=== PATIENT | male | born 1965 | race Caucasian/White ===

== ENCOUNTER 2016-09-07 11:40 | Outpatient (CLI) | payer OTHER ==
[~2016-09-07 11:40] MED LIST: ALBUTEROL HFA60 DOSE IN; ALPHA LIPOIC ACID PO; AMITRIPTYLINE H10 MG PO; AMLODIPINE BESYL5 MG PO; ASPIRIN EC325 MG PO; ATORVASTATIN CA20 MG PO; AUGMENTIN875 MG PO; BACTROBAN21 TOP; FLONASE AL50 MCG/ACT; GABAPENTIN600 MG PO; HUMALOG100 MG/ML SC; ISOSORBIDE MONO60 MG PO; KEFLEX500 M1 PO; LANTUS SOL100 UNITS/ SC; LASIX40 MG PO; LISINOPRIL10 MG PO; LISINOPRIL2.5 MG PO; METOPROLOL SUCC50 MG PO; NYSTATIN100000 MG PO; OMEGA 31000 MG PO; OXYCODONE/ACETA1 TA1 PO; PREDNISONE5 MG PO; PRINIVIL5 MG PO; RANITIDINE HCL150 MG PO; TOPROL XL25 MG PO; TOPROL XL50 MG PO; VITAMIN B 12100 MCG PO; VITAMIN B 12250 MCG PO; VITAMIN B 50 PO; ZANTAC 150 MAX150 MG PO; ZYRTEC ALLERGY10 M1
--- NOTE | 2016-09-07 12:27 | DIAGNOSTIC IMAGING REPORT ---
PROCEDURE: CT HEAD WITHOUT CONTRAST INDICATION: ACUTE NON INTRACTABLE HEADACHE; DIZZINESS TECHNIQUE: Axial CT images were acquired through the head. Coronal and sagittal reformations were created. COMPARISON: None. FINDINGS: Study was limited by patient motion. No intracranial hemorrhage or extraaxial fluid collections. Ventricles are normal in size, shape and position. There is no mass, mass effect or midline shift. The montiel-white matter differentiation is normal. There is no edema. The calvarium is intact. There is a fluid in the maxillary ethmoid and frontal sinuses. IMPRESSION: 1. No CT evidence of acute intracranial process. 2. Maxillary ethmoid and frontal sinusitis All CT scans at this facility use dose modulation, iterative reconstruction, and/or weight-based dosing when appropriate to reduce radiation dose to as low as reasonably achievable.
--- NOTE | 2016-09-07 12:29 | DIAGNOSTIC IMAGING REPORT ---
PROCEDURE: CT SINUS/FACIAL BONES W/O CONT CLINICAL INDICATION: ACUTE NONINTRACTABLE HEADACHE TECHNIQUE: Noncontrast axial CT images through the sinuses. Coronal and sagittal reformations were created. COMPARISON: None. FINDINGS: There is fluid in the frontal ethmoid and maxillary sinuses bilaterally. Sphenoid sinuses clear. Orbits are normal in IMPRESSION: 1. Maxillary ethmoid and frontal sinusitis. All CT scans at this facility use dose modulation, iterative reconstruction, and/or weight-based dosing when appropriate to reduce radiation dose to as low as reasonably achievable.
== END 2016-09-07 23:00 ==
LOC: CT SRH 11:40
DX: R51 Headache (principal); J32.0 Chronic maxillary sinusitis; J32.2 Chronic ethmoidal sinusitis

== ENCOUNTER 2016-11-01 10:26 | Observation (INO) | payer OTHER ==
[~2016-11-01] VITALS: Ht 180.3 cm; Wt 164.9 kg
--- NOTE | 2016-11-01 10:57 | DIAGNOSTIC IMAGING REPORT ---
PROCEDURE: XR CHEST 1 VIEW INDICATION: CHEST PAIN TECHNIQUE: Portable AP view 10:46 a.m. COMPARISON: Chest 07/06/2016 and 08/08/2015 FINDINGS: Status post CABG. Heart size, mediastinum and point vessels are normal. Poor inspiration but lungs are clear. Stable lower thoracic spine chronic compression fracture. IMPRESSION: 1. No acute changes 2. CABG
--- NOTE | 2016-11-01 11:47 | ED NURSING NOTES ---
Clinical Report - Nurses [place] [address] [place] [address] 11/01/2016 10:27 Patient: SUDHA BRIGGS TRIAGE Triage time 10:29. Acuity: LEVEL 2. Chief Complaint: CHEST PAIN. Alert. --10:33 Stuart Cosme R.N. 10:31 11/01/16. Pain level now 3/10. --10:33 Stuart Cosme R.N. SEPSIS SCREEN: Sepsis Screen. Negative (no infection suspected/documented). Heart rate greater than 90. Temperature not greater than 38.3 degrees C (101 degrees F). Respiratory rate not greater than 20. --10:35 Stuart Cosme R.N. 10:34 11/01/16. BP: 155/79. HR: 105. RR: 22. O2 saturation: 95% on room air. Temp: 98.1 F (oral). --10:35 Stuart Cosme R.N. Weight: 165.5 kg stated. Height/Length: 71 inches Per Patient. BMI: 50.9. --10:30 Stuart Cosme R.N. Medications Amitriptyline HCl Oral (Tablet 10 mg), at bedtime. --10:37 Stuart Cosme R.N. Tramadol HCL Oral, 3x a day. --10:37 Stuart Cosme R.N. Albuterol Sulfate HFA Inhalation (Aerosol Solution 108 (90 Base) mcg/act) 2 puffs, 4x a day as needed. --10:40 Stuart Cosme R.N. AmLODIPine Besylate Oral (Tablet 10 mg), daily. --10:41 Stuart Cosme R.N. Aspirin Low Dose Oral (Tablet Chewable 81 mg) 1 tablet, daily. --10:42 Stuart Cosme R.N. Atorvastatin Calcium Oral (Tablet 80 mg) 1 tablet, daily. --10:42 Stuart Cosme R.N. Augmentin Oral (Tablet 875-125 mg) 1 tablet, 2x a day. --10:43 Stuart Cosme R.N. Benzonatate Oral (Capsule 200 mg) 1 capsule, 3x a day as needed. --10:45 Stuart Cosme R.N. Carvedilol Phosphate ER Oral. --10:46 Stuart Cosme R.N. Cefdinir Oral (Capsule 300 mg) 1 capsule, 2x a day. --10:46 Stuart Cosme R.N. DULoxetine HCl Oral (Capsule Delayed Release Particles 30 mg) 2 capsules. --10:47 Stuart Cosme R.N. Flonase Nasal (Suspension 50 mcg/act) 2 sprays, daily. --10:47 Stuart Cosme R.N. Gabapentin Oral 1200 mg, 3x a day. --10:48 Stuart Cosme R.N. HumaLOG Subcutaneous (Solution 100 unit/mL) 20-30 units , before meals. --10:49 Stuart Cosme R.N. Lantus Subcutaneous (Solution 100 unit/mL) 60 units, 2x a day. --10:50 Stuart Cosme R.N. Lisinopril Oral 10 mg, 2x a day. --10:51 Stuart Cosme R.N. Nitroglycerin Sublingual (Tablet Sublingual 0.4 mg), as needed. --10:53 Stuart Cosme R.N. Newberg 3 Oral. --10:55 Stuart Csome R.N. ProAir HFA Inhalation (Aerosol Solution 108 (90 Base) mcg/act), as needed. --10:55 Stuart Cosme R.N. Uloric Oral (Tablet 80 mg), daily. --10:55 Stuart Cosme R.N. Vitamin B-12 Oral. --10:56 Stuart Cosme R.N. Ranitidine HCl Oral 150 mg, 2x a day. --10:56 Stuart Cosme R.N. ZyrTEC Allergy Oral (Tablet 10 mg) 1 tablet, daily. --11:00 Stuart Cosme R.N. The following entry was struck and corrected by Stuart Cosme R.N., 10:40 (11/01/16) Reason for correction - other(correction). <<STRICKEN ENTRY-- Amitriptyline HCl Oral. --10:37 Stuart Cosme R.N. --END STRIKE>> The following entry was struck by Stuart Cosme R.N., 10:40 (11/01/16) Reason - other. <<STRICKEN ENTRY-- Albuterol Sulfate Inhalation. --10:37 Stuart Cosme R.N. --END STRIKE>>. Allergies Metoprolol Succinate. --10:36 Stuart Cosme R.N. Claritin. --10:37 Stuart Cosme R.N. History Arrived by private vehicle. Historian: patient. Accompanied by family. Primary physician (nir). ( chest pain starting at 0800. States he was awoken from sleep by it. States he had a 5 way CABG in 2002. Denies pain radiating or changing. Also complaining of dizziness.). This started today. Treatment [employer]: (excedrin). SOCIAL HX: Never smoker. No alcohol use or drug use. ABUSE ASSESSMENT: No report of abuse. FALL RISK ASSESSMENT: Fall risk assessment completed. No fall risk identified. NUTRITIONAL RISK ASSESSMENT: The nutritional risk assessment revealed no deficiencies. FUNCTIONAL ASSESSMENT: Functional assessment: no impairments noted. LEARNING NEEDS ASSESSMENT: The learning needs assessment revealed no barriers. SKIN INTEGRITY ASSESSMENT: Skin integrity risk assessment completed. No skin integrity risk identified. --10:33 Stuart Cosme R.N. ( states he is being treated for pink eye and a sinus infection). --10:34 Stuart Cosme R.N. PROBLEMS: Dyspnea. Chest Pain. Renal Failure. Anxiety Reaction. Hyperlipidemia. Gastroesophageal Reflux. Rib Fracture. Knee Injury. Pedal Edema. Coronary Artery Disease. Hypercholesterolemia. Dehydration. Hyperglycemia. Vomiting. Immunizations. Hypertension. Heart Disease. Diabetes Mellitus. --10:36 Stuart Cosme R.N. ADDITIONAL SURGERIES: Coronary Artery Bypass Graft. --10:36 Stuart Cosme R.N. Interventions ID band on patient. To treatment room. --10:33 Stuart Cosme R.N. PHYSICAL ASSESSMENT To room via wheelchair. GENERAL / NEURO / PSYCH: Alert. Oriented X 4. Appears anxious. CVS: Capillary refill less than 2 seconds. SKIN: Skin is warm and dry. Skin is non-tender. --11:01 Stuart Cosme R.N. NURSING PROGRESS NOTES 10:32. The plan of care for this patient has been created. lunchroom monitor, pulse oximeter and NIBP monitor placed on patient. Patient gowned. Head of bed elevated. ( asa Prior to arrival, MD aware). Call light placed in reach. Bed placed in lowest position. Brakes of bed on. Patient ready for evaluation- chart flagged and ED physician notified. --11:09 Stuart Cosme R.N. 11:00. Overall patient status is the same. --11:08 Stuart Cosme R.N. 11:04 11/01/2016 NITROGLYCERIN PASTE Topical Paste 1.5 inch. Applied to the left chest. Allergies verified and confirmed 5 rights. --11:10 Stuart Cosme R.N. 11:04 11/01/2016 Nitroglycerin SL Tablets 0.4 mg given. Allergies verified and confirmed 5 rights. --11:11 Stuart Cosme R.N. 11:11 11/01/16. BP: 145/79. HR: 101. RR: 18. O2 saturation: 94%. --11:11 Stuart Cosme R.N. Reassessment after medication administered. He reports no complaints, he is calm and he has had no adverse reaction. ( MD and RN notified). CVS: The patient reports chest pain is gone now. --11:13 Stuart Cosme R.N. 11:16 11/01/16. BP: 129/72. HR: 103. RR: 24. Pain level now 0/10. --11:16 Stuart Cosme R.N. EKG time: (1032). EKG was ordered, performed by a tech and shown to the ED physician. --11:22 Liz Malone R.N. ( 10:40 no asa given. Pt states he took 650mg of asa [employer]. Provider notified.). --11:22 Liz Malone R.N. 10:30 11/01/2016 Site #1 started via IV in the right hand with an 20g angiocath, with aseptic technique and good blood return. Blood drawn: rainbow set. Labeled in the presence of the patient and sent to the lab. Saline lock flushed. --11:26 Liz Malone R.N. 10:47 11/01/2016 Started bag #1 1000 mL IV Fluids IV NS (Saline); at 1000 mL/hr over 30 minute(s) via site #1 via IV pump. Allergies verified and confirmed 5 rights. IV patency established. IV site checked: no pain, redness, or swelling. IV flushed thoroughly pre- and post-medication administration. --11:26 Liz Malone R.N. 11:24 11/01/16. Checked patient name and birthdate: patient confirmed urine collected with return of yellow-colored clear urine; sample sent to lab for urinalysis. Specimen labeled in the presence of the patient. --11:24 Bernda Fischer R.N. 10:42. Portable chest x-ray ordered, performed and shown to the ED physician. --11:27 Liz Malone R.N. 11:35 11/01/16. BP: 116/63. HR: 102. RR: 18. O2 saturation: 95% on room air. Temp: 98.8 F (oral). --11:36 Brenda Fischer R.N. 11:57 11/01/16. The patient reports no complaints and he is calm and resting quietly. --11:57 Stuart Cosme R.N. 12:26 11/01/2016 IV Fluids IV NS Discontinued: bag #1 infused. Total amount infused: 1000 mL. IV patency established. IV site checked: no pain, redness, or swelling. IV flushed thoroughly. --12:26 Stuart Cosme R.N. Assisted patient (to sit at edge of bed). --12:38 Stuart Cosme R.N. 13:19 11/01/16. Oxygen administered by nasal cannula at 2 liters. ( Pt given ice water). --13:19 Brenda Fischer R.N. 13:40 11/01/16. BP: 101/70. HR: 92. RR: 23. O2 saturation: 94% on room air. Pain level now 0/10. --13:41 Stuart Cosme R.N. 13:48 11/01/16. BP: 101/70. HR: 95. RR: 18. O2 saturation: 96%. Temp: 98.3 F. Pain level now 5/10. --13:51 Liz Malone R.N. DISPOSITION / DISCHARGE 13:51 11/01/2016 Site #[address] upon admission; patent, no pain and no signs of infiltration. No blood return present. Flushed with 10 mL saline; flushes easily. --13:52 Liz Malone R.N. ( 13:48 11/01/16. BP: 101/70. HR: 95. RR: 18. O2 saturation: 96%. Temp: 98.3 F. Pain level now 5/10. 13:51 Liz Malone R.N.). --13:52 Liz Malone R.N. 14:00. Departure time: 14:00. Admitted to Acute Care. Transported via wheelchair by [employer]. Report was given to a nurse via a phone call. Report included patient's care, treatment, medications, reviewed medication reconcilliation, and condition (including any recent changes or anticipated changes). All questions were answered. (to Kalee). ( provider aware of admit v/s no new orders received at this time.). Patient's personal items; items were placed in belongings bag, given to the patient and transported with the patient. --15:43 Liz Malone R.N. Locked/Released at 11/01/2016 16:25 by Liz Malone R.N.
--- NOTE | 2016-11-01 11:47 | ED CLINICAL REPORT ---
Clinical Report - Physicians/Mid Levels [facility] [address] [place] [address] 11/01/2016 10:27 Patient: SUDHA BRIGGS Time Seen: 10:36. Arrived- By private vehicle. Historian- patient. HISTORY OF PRESENT ILLNESS Chief Complaint: CHEST DISCOMFORT. At its maximum, severity described as moderate. When seen in the E.D., severity described as moderate. Modifying factors. Not worsened by anything. Not relieved by anything. This started today about 0800 and is still present. It was gradual in onset and has been waxing/waning. Onset during light activity. It is described as dull and it is described as located in the central chest and left chest area and left arm and radiating to the left arm. No nausea, vomiting, difficulty breathing or diaphoresis. (chest pain starting at 0800. States he was awoken from sleep by it. States he had a [address] way CABG in 2002. Denies pain radiating or changing. Also complaining of dizziness). Similar symptoms previously: Recent medical care: Not recently seen/assessed. REVIEW OF SYSTEMS No fever, chills, cough, pedal edema or calf pain. No fainting episodes, headache, sore throat, abdominal pain or black stools. No difficulty with urination, skin rash, enlarged lymph nodes, joint pain or bloody stools. All systems otherwise negative, except as recorded above. PAST HISTORY PROBLEMS: Dyspnea. Chest Pain. Renal Failure. Anxiety Reaction. Hyperlipidemia. Gastroesophageal Reflux. Rib Fracture. Knee Injury. Pedal Edema. Coronary Artery Disease. Hypercholesterolemia. Dehydration. Hyperglycemia. Vomiting. Hypertension. Heart Disease. Diabetes Mellitus. Obesity SURGERIES: Coronary Artery Bypass Graft. Medications: Tramadol HCL Oral, 3x a day. Amitriptyline HCl Oral. Albuterol Sulfate Inhalation. Allergies: Claritin. Metoprolol Succinate. SOCIAL HISTORY Never smoker. No alcohol use or drug use. ADDITIONAL NOTES The nursing notes have been reviewed. PHYSICAL EXAM Vital Signs: 11/01/2016 10:34 BP: 155/79. HR: 105. RR: 22. O2 saturation: 95%. Temp: 98.1 F. Appearance: Alert. Oriented X3. Patient in mild distress. No marfanoid habitus. Eyes: Eyes normal inspection. No scleral icterus or pale conjunctivae. ENT: Pharynx normal. No pharyngeal erythema or tonsillar exudate. The mucous membranes are not dry. Neck: Normal inspection. Neck supple. CVS: Tachycardia. Normal heart rate and rhythm. Heart sounds normal. Pulses normal. No decreased pulses. Respiratory: No respiratory distress. Breath sounds normal. Chest nontender. No splinting, decreased air movement, rales, rhonchi or wheezes. No prolonged expiration. Abdomen: Soft and nontender. No mass. Obese. Back: Normal external inspection. No CVA tenderness. Skin: Skin warm and dry. Normal skin color. Normal skin turgor. Extremities: Extremities exhibit normal ROM. No calf tenderness. Neuro: Oriented X 3. No motor deficit. LABS, X-RAYS, AND EKG EKG: EKG time: (10:32). Normal sinus rhythm. Rate: 99. Occasional ectopic beats. Premature ventricular contractions. Normal P waves. Normal DAISHA. Nondiagnostic Q waves in lead III, V1, V2 and V3. Poor R wave progression. Left axis deviation. Non-specific ST segment / T wave abnormalities. Non-specific T wave flattening in lead I and aVL. EKG unchanged when compared with prior EKG. (Jun 29 - not changed). The study has been interpreted contemporaneously by me. The EKG appears to be a good tracing. Rhythm Strip #1: Normal sinus rhythm. Regular rhythm. Narrow QRS complexes. Occasional premature ventricular contractions. Chest X-ray: (PROBLEMS: Drug Poisoning. Immunizations. Addict). Views: AP (portable). Technique: good. The X-rays were interpreted by the radiologist and contemporaneously by me and discussed with the radiologist. Laboratory Tests: UA-Culture if indicated: (KWABENA: 11/01/2016 11:20) ( MsgRcvd 11/01/2016 12:03) Final results Test Result Flag Units (Reference) URINE COLOR YELLOW URINE APPEARANCE CLEAR URINE GLUCOSE 1+ (NEGATIVE) URINE BILIRUBIN NEGATIVE (NEGATIVE) URINE KETONE NEGATIVE (NEGATIVE) URINE SPECIFIC GRAVITY 1.020 (1.010-1.030) URINE PH 6.0 (5.0-8.0) URINE PROTEIN 1+ (NEGATIVE) URINE UROBILINOGEN 0.2 EU/dL (0.2-1.0) URINE NITRITE NEGATIVE (NEGATIVE) URINE BLOOD TRACE-INTACT (NEGATIVE) URINE LEUK ESTERASE NEGATIVE (NEGATIVE) URINE RBC NONE SEEN rbc/hpf (0-1) URINE WBC NONE SEEN wbc/hpf (0-1) URINE EPITHELIAL CELLS RARE EPI/hpf (0-5) URINE BACTERIA NONE SEEN (NONE SEEN) URINE COMMENT CULT NOT INDICATED URINE CULTURES ARE SET-UP BASED ON THE FOLLOWING CRITERIA:POSITIVE NITRITEPOSITIVE LEUKOCYTE ESTERASEGREATER THAN 10 WHITE BLOOD CELLSMODERATE (2+) OR GREATER BACTERIA CBC w Diff: (KWABENA: 11/01/2016 10:35) ( MsgRcvd 11/01/2016 10:49) Final results Test Result Flag Units (Reference) WHITE BLOOD COUNT 8.3 K/uL (4.5-11.5) RED BLOOD COUNT 4.96 M/uL (4.50-5.90) HEMOGLOBIN 13.9 gm/dL (13.5-17.5) HEMATOCRIT 42.6 % (41.0-53.0) MEAN CELL VOLUME 86 fL (80-100) MEAN CORPUSCULAR HGB 28 pg (26-34) MEAN CORPUSCULAR HGB CONC 33 g/dL (31-37) RED CELL DISTRIBUTION WIDTH 16.3 H % (11.6-14.8) PLATELET COUNT 277 K/uL (150-400) NEUTROPHIL % 73.4 % (50-75) LYMPH % 10.1 L % (25-40) MONO % 0.1 L % (3-14) EOSINOPHIL % 16.2 H % (0-4) BASOPHIL % 0.2 % (0-2) Urine Drug Screen: (KWABENA: 11/01/2016 11:20) ( MsgRcvd 11/01/2016 11:49) Final results Test Result Flag Units (Reference) AMPHETAMINE/METHAMPHETAMINE NEGATIVE (NEGATIVE) BARBITURATE NEGATIVE (NEGATIVE) BENZODIAZEPINE NEGATIVE (NEGATIVE) CANNABINOID NEGATIVE (NEGATIVE) COCAINE NEGATIVE (NEGATIVE) ECSTASY NEGATIVE (NEGATIVE) METHADONE NEGATIVE (NEGATIVE) OPIATE NEGATIVE (NEGATIVE) The urine drug screen is a qualitative screening test fordrug overdose and abuse. All screen results should beconsidered as presumptive.Drugs screened for are as follows:BenzodiazepinesCocaineAmphetamines/MetamphetaminesTHC (Tetrahydrocannabinol)OpiatesBarbituratesEcstasyMethadonePositive results are unconfirmed. For confirmation, notifythe lab for the specimen to be sent to the reference lab.All confirmations must be performed by a differentmethodology.The ingestion of natural herbal and plant productscontaining Ephedra/Ephedra metabolites can produce in urineone or more substances capable of cross reacting withamphetamine/methamphetamine immunoassays. These testsprovide a preliminary result only. A more specificalternative chemical method must be used to obtain aconfirmed analytical result. BNP: (KWABENA: 11/01/2016 10:35) ( [facility] Final results Test Result Flag Units (Reference) B-TYPE NATRIURETIC PEPTIDE 86.5 pg/ml (5-100) CHEM 13 PANEL: (KWABENA: 11/01/2016 11:00) ( WygRcvd 11/01/2016 11:24) Final results Test Result Flag Units (Reference) GLUCOSE 276 H mg/dL (70-110) BUN 34 H mg/dL (7-18) CREATININE 1.8 H mg/dL (0.6-1.3) Estimated GFR 42.49 mL/min Estimated GFR- 51.50 mL/min Note: Persistent reduction over 3 months in eGFR<60 mL/min/1.73 m2 defines CKD. Patients with eGFR values>=60 mL/min/1.73 m2 may also have CKD if evidence ofpersistent proteinuria. Additional information may be foundat www.kidney.org. SODIUM 139 mmol/L (136-145) POTASSIUM 4.2 mmol/L (3.5-5.1) CHLORIDE 104 mmol/L (98-107) CARBON DIOXIDE 23 mmol/L (21-32) CALCIUM 9.0 mg/dL (8.5-10.1) TOTAL PROTEIN 6.8 g/dL (6.4-8.2) ALBUMIN 3.0 L g/dL (3.3-5.0) BILIRUBIN, TOTAL 0.5 mg/dL (0.0-1.0) ALKALINE PHOSPHATASE 139 H U/L (46-116) AST (SGOT) 18 U/L (15-37) ALT (SGPT) 34 U/L (12-78) CPK 92 U/L (24-260) MAGNESIUM 1.4 L mg/dL (1.8-2.4) LIPASE 206 U/L (73-393) AMYLASE 77 U/L (25-115) TROPONIN I <0.05 L ng/mL (0.00-1.5) TROPONIN REFERENCE RANGE:<0.1 NEGATIVE0.1-1.5 INDETERMINANT>1.5 POSITIVE . Pulse Oximetry: 11/01/2016 10:34 O2 saturation: 95%. (FIO2 - room air). Interpretation: normal. PROGRESS AND PROCEDURES Course of Care: Pt states he took up to 650mg tabs of ASA prior to arrival Symptom free after one NTG sl and NTP 11:46 11/01/16. Patient is stable. Physical exam findings are improved. Symptoms much better. 13:16 11/01/16. Just received Nuc Med stress test results from [facility] - had 2004 test and 2015 test. SEP 2015 was unremarkable for ischemia (over 13 months ago) Pt with multiple risk factors and prior CABG. Pt will be observed with cath lab tech and repeat cardiac serum markers obtained. Pt may need repeat nuclear stress (last was approx 13 months). Discussed case with hospitalist, (Nadiya call placed 11:50 call returned 12:16). Reviewed test results. Agreed upon treatment plan. Patient/family counseled. Old ED and inpatient records reviewed. Patient has had multiple ED visits (records from [facility] and [facility] reviewed). Transition orders written. Disposition: Observation in Acute Care. Condition: guarded. CLINICAL IMPRESSION Chest pain characterized as "discomfort" .12 lead EKG performed. Chronic, moderately well controlled type 2 diabetes with hyperglycemia. No coma. Chronic renal insufficiency. (Electronically signed by Rei Callahan DO 11/01/2016 14:21)
--- NOTE | 2016-11-01 11:47 | ED CLINICAL REPORT ---
Clinical Report - Physicians/Mid Levels [facility] [address] [place] [address] 11/01/2016 10:27 Patient: SUDHA BRIGGS Time Seen: 10:36. Arrived- By private vehicle. Historian- patient. HISTORY OF PRESENT ILLNESS Chief Complaint: CHEST DISCOMFORT. At its maximum, severity described as moderate. When seen in the E.D., severity described as moderate. Modifying factors. Not worsened by anything. Not relieved by anything. This started today about 0800 and is still present. It was gradual in onset and has been waxing/waning. Onset during light activity. It is described as dull and it is described as located in the central chest and left chest area and left arm and radiating to the left arm. No nausea, vomiting, difficulty breathing or diaphoresis. (chest pain starting at 0800. States he was awoken from sleep by it. States he had a [address] way CABG in 2002. Denies pain radiating or changing. Also complaining of dizziness). Similar symptoms previously: Recent medical care: Not recently seen/assessed. REVIEW OF SYSTEMS No fever, chills, cough, pedal edema or calf pain. No fainting episodes, headache, sore throat, abdominal pain or black stools. No difficulty with urination, skin rash, enlarged lymph nodes, joint pain or bloody stools. All systems otherwise negative, except as recorded above. PAST HISTORY PROBLEMS: Dyspnea. Chest Pain. Renal Failure. Anxiety Reaction. Hyperlipidemia. Gastroesophageal Reflux. Rib Fracture. Knee Injury. Pedal Edema. Coronary Artery Disease. Hypercholesterolemia. Dehydration. Hyperglycemia. Vomiting. Hypertension. Heart Disease. Diabetes Mellitus. Obesity SURGERIES: Coronary Artery Bypass Graft. Medications: Tramadol HCL Oral, 3x a day. Amitriptyline HCl Oral. Albuterol Sulfate Inhalation. Allergies: Claritin. Metoprolol Succinate. SOCIAL HISTORY Never smoker. No alcohol use or drug use. ADDITIONAL NOTES The nursing notes have been reviewed. PHYSICAL EXAM Vital Signs: 11/01/2016 10:34 BP: 155/79. HR: 105. RR: 22. O2 saturation: 95%. Temp: 98.1 F. Appearance: Alert. Oriented X3. Patient in mild distress. No marfanoid habitus. Eyes: Eyes normal inspection. No scleral icterus or pale conjunctivae. ENT: Pharynx normal. No pharyngeal erythema or tonsillar exudate. The mucous membranes are not dry. Neck: Normal inspection. Neck supple. CVS: Tachycardia. Normal heart rate and rhythm. Heart sounds normal. Pulses normal. No decreased pulses. Respiratory: No respiratory distress. Breath sounds normal. Chest nontender. No splinting, decreased air movement, rales, rhonchi or wheezes. No prolonged expiration. Abdomen: Soft and nontender. No mass. Obese. Back: Normal external inspection. No CVA tenderness. Skin: Skin warm and dry. Normal skin color. Normal skin turgor. Extremities: Extremities exhibit normal ROM. No calf tenderness. Neuro: Oriented X 3. No motor deficit. LABS, X-RAYS, AND EKG EKG: EKG time: (10:32). Normal sinus rhythm. Rate: 99. Occasional ectopic beats. Premature ventricular contractions. Normal P waves. Normal DAISHA. Nondiagnostic Q waves in lead III, V1, V2 and V3. Poor R wave progression. Left axis deviation. Non-specific ST segment / T wave abnormalities. Non-specific T wave flattening in lead I and aVL. EKG unchanged when compared with prior EKG. (Jun 29 - not changed). The study has been interpreted contemporaneously by me. The EKG appears to be a good tracing. Rhythm Strip #1: Normal sinus rhythm. Regular rhythm. Narrow QRS complexes. Occasional premature ventricular contractions. Chest X-ray: (PROBLEMS: Drug Poisoning. Immunizations. Addict). Views: AP (portable). Technique: good. The X-rays were interpreted by the radiologist and contemporaneously by me and discussed with the radiologist. Laboratory Tests: UA-Culture if indicated: (KWABENA: 11/01/2016 11:20) ( MsgRcvd 11/01/2016 12:03) Final results Test Result Flag Units (Reference) URINE COLOR YELLOW URINE APPEARANCE CLEAR URINE GLUCOSE 1+ (NEGATIVE) URINE BILIRUBIN NEGATIVE (NEGATIVE) URINE KETONE NEGATIVE (NEGATIVE) URINE SPECIFIC GRAVITY 1.020 (1.010-1.030) URINE PH 6.0 (5.0-8.0) URINE PROTEIN 1+ (NEGATIVE) URINE UROBILINOGEN 0.2 EU/dL (0.2-1.0) URINE NITRITE NEGATIVE (NEGATIVE) URINE BLOOD TRACE-INTACT (NEGATIVE) URINE LEUK ESTERASE NEGATIVE (NEGATIVE) URINE RBC NONE SEEN rbc/hpf (0-1) URINE WBC NONE SEEN wbc/hpf (0-1) URINE EPITHELIAL CELLS RARE EPI/hpf (0-5) URINE BACTERIA NONE SEEN (NONE SEEN) URINE COMMENT CULT NOT INDICATED URINE CULTURES ARE SET-UP BASED ON THE FOLLOWING CRITERIA:POSITIVE NITRITEPOSITIVE LEUKOCYTE ESTERASEGREATER THAN 10 WHITE BLOOD CELLSMODERATE (2+) OR GREATER BACTERIA CBC w Diff: (KWABENA: 11/01/2016 10:35) ( MsgRcvd 11/01/2016 10:49) Final results Test Result Flag Units (Reference) WHITE BLOOD COUNT 8.3 K/uL (4.5-11.5) RED BLOOD COUNT 4.96 M/uL (4.50-5.90) HEMOGLOBIN 13.9 gm/dL (13.5-17.5) HEMATOCRIT 42.6 % (41.0-53.0) MEAN CELL VOLUME 86 fL (80-100) MEAN CORPUSCULAR HGB 28 pg (26-34) MEAN CORPUSCULAR HGB CONC 33 g/dL (31-37) RED CELL DISTRIBUTION WIDTH 16.3 H % (11.6-14.8) PLATELET COUNT 277 K/uL (150-400) NEUTROPHIL % 73.4 % (50-75) LYMPH % 10.1 L % (25-40) MONO % 0.1 L % (3-14) EOSINOPHIL % 16.2 H % (0-4) BASOPHIL % 0.2 % (0-2) Urine Drug Screen: (KWABENA: 11/01/2016 11:20) ( MsgRcvd 11/01/2016 11:49) Final results Test Result Flag Units (Reference) AMPHETAMINE/METHAMPHETAMINE NEGATIVE (NEGATIVE) BARBITURATE NEGATIVE (NEGATIVE) BENZODIAZEPINE NEGATIVE (NEGATIVE) CANNABINOID NEGATIVE (NEGATIVE) COCAINE NEGATIVE (NEGATIVE) ECSTASY NEGATIVE (NEGATIVE) METHADONE NEGATIVE (NEGATIVE) OPIATE NEGATIVE (NEGATIVE) The urine drug screen is a qualitative screening test fordrug overdose and abuse. All screen results should beconsidered as presumptive.Drugs screened for are as follows:BenzodiazepinesCocaineAmphetamines/MetamphetaminesTHC (Tetrahydrocannabinol)OpiatesBarbituratesEcstasyMethadonePositive results are unconfirmed. For confirmation, notifythe lab for the specimen to be sent to the reference lab.All confirmations must be performed by a differentmethodology.The ingestion of natural herbal and plant productscontaining Ephedra/Ephedra metabolites can produce in urineone or more substances capable of cross reacting withamphetamine/methamphetamine immunoassays. These testsprovide a preliminary result only. A more specificalternative chemical method must be used to obtain aconfirmed analytical result. BNP: (KWABENA: 11/01/2016 10:35) ( [facility]) Final results Test Result Flag Units (Reference) B-TYPE NATRIURETIC PEPTIDE 86.5 pg/ml (5-100) CHEM 13 PANEL: (KWABENA: 11/01/2016 11:00) ( CogRcvd 11/01/2016 11:24) Final results Test Result Flag Units (Reference) GLUCOSE 276 H mg/dL (70-110) BUN 34 H mg/dL (7-18) CREATININE 1.8 H mg/dL (0.6-1.3) Estimated GFR 42.49 mL/min Estimated GFR- 51.50 mL/min Note: Persistent reduction over 3 months in eGFR<60 mL/min/1.73 m2 defines CKD. Patients with eGFR values>=60 mL/min/1.73 m2 may also have CKD if evidence ofpersistent proteinuria. Additional information may be foundat www.kidney.org. SODIUM 139 mmol/L (136-145) POTASSIUM 4.2 mmol/L (3.5-5.1) CHLORIDE 104 mmol/L (98-107) CARBON DIOXIDE 23 mmol/L (21-32) CALCIUM 9.0 mg/dL (8.5-10.1) TOTAL PROTEIN 6.8 g/dL (6.4-8.2) ALBUMIN 3.0 L g/dL (3.3-5.0) BILIRUBIN, TOTAL 0.5 mg/dL (0.0-1.0) ALKALINE PHOSPHATASE 139 H U/L (46-116) AST (SGOT) 18 U/L (15-37) ALT (SGPT) 34 U/L (12-78) CPK 92 U/L (24-260) MAGNESIUM 1.4 L mg/dL (1.8-2.4) LIPASE 206 U/L (73-393) AMYLASE 77 U/L (25-115) TROPONIN I <0.05 L ng/mL (0.00-1.5) TROPONIN REFERENCE RANGE:<0.1 NEGATIVE0.1-1.5 INDETERMINANT>1.5 POSITIVE . Pulse Oximetry: 11/01/2016 10:34 O2 saturation: 95%. (FIO2 - room air). Interpretation: normal. PROGRESS AND PROCEDURES Course of Care: Pt states he took up to 650mg tabs of ASA prior to arrival Symptom free after one NTG sl and NTP 11:46 11/01/16. Patient is stable. Physical exam findings are improved. Symptoms much better. 13:16 11/01/16. Just received Nuc Med stress test results from [facility] - had 2004 test and 2015 test. SEP 2015 was unremarkable for ischemia (over 13 months ago) Pt with multiple risk factors and prior CABG. Pt will be observed with hoop bender tank and repeat cardiac serum markers obtained. Pt may need repeat nuclear stress (last was approx 13 months). Discussed case with hospitalist, (Nadiya call placed 11:50 call returned 12:16). Reviewed test results. Agreed upon treatment plan. Patient/family counseled. Old ED and inpatient records reviewed. Patient has had multiple ED visits (records from [facility] and [facility] reviewed). Transition orders written. Disposition: Observation in Acute Care. Condition: guarded. CLINICAL IMPRESSION Chest pain characterized as "discomfort" .12 lead EKG performed. Chronic, moderately well controlled type 2 diabetes with hyperglycemia. No coma. Chronic renal insufficiency. (Electronically signed by Rei Callahan DO 11/01/2016 14:21)
--- NOTE | 2016-11-01 11:47 | ED ORDER SUMMARY ---
..... Patient: SUDHA BRIGGS OrderSheet [facility] VisitID: [id number] [address] [place] [address] 51y, M Registration Date/Time: 11/01/2016 ORDER SHEET Weight: 165.5 kg (stated) Allergies: Metoprolol Succinate, Claritin GENERAL ORDERS: Chest 1V Urgent (10:36 11/01/2016 PHutchinson DO) (Ack 10:38 KHoerner) (10:43 SReitz R.N.) Compliance Coordinator (Continuous) (10:36 11/01/2016 PHutchinson DO) (11:10 KWilliams R.N.) UA-Culture if indicated Urgent (10:37 11/01/2016 PHutchinson DO) (Ack 10:38 KHoerner) (11:54 KWilliams R.N.) Cardiac Panel Stat (10:37 11/01/2016 PHutchinson DO) (Ack 10:38 KHoerner) (11:10 KWilliams R.N.) BNP Urgent (10:37 11/01/2016 PHutchinson DO) (Ack 10:38 KHoerner) (11:10 KWilliams R.N.) Amylase Urgent (10:37 11/01/2016 PHutchinson DO) (Ack 10:38 KHoerner) (11:10 KWilliams R.N.) Lipase Urgent (10:37 11/01/2016 PHutchinson DO) (Ack 10:38 KHoerner) (11:10 KWilliams R.N.) Urine Drug Screen Urgent (10:37 11/01/2016 PHutchinson DO) (Ack 10:38 KHoerner) (11:54 KWilliams R.N.) Oxygen (2 L/min) (NC) (10:37 11/01/2016 PHutchinson DO) (10:43 SReitz R.N.) Pulse oximeter (10:37 11/01/2016 PHutchinson DO) (10:43 SReitz R.N.) EKG - ER Stat (10:37 11/01/2016 PHutchinson DO) (Ack 10:38 KHoerner) (10:43 Vesta R.N.) Vitals (10:37 11/01/2016 [facility]) (10:43 Vesta R.N.) Old Records (from [facility]) (11:47 11/01/2016 PHalchinson DO) (Ack 11:55 KHoerner) (11:57 KHoerner) Call (Place call to): (Dr Hearn) (11:48 11/01/2016 [facility]) (11:55 KHoerner) MEDICATION ORDERS: Aspirin PO 325 mg (NOW) (10:36 11/01/2016 [facility] DO) (Cancelled: Other10:43 Vesta R.N.) NitroGLYCERIN Paste Topical 1.5 in. (NOW, to CW) (11:03 11/01/2016 [facility] DO) (11:10 Parisa R.N.) NitroGLYCERIN SL 0.4 mg (x3 PRN Chest Pain) (11:03 11/01/2016 [facility]) (11:11 KWjocelinams R.N.) IV FLUIDS: IV NS : initial bolus 500 mL (1000 mL/hr), then 500 mL/hr for X2 (NOW) (10:36 11/01/2016 [facility]) (11:26 Vesta R.N.) ORDER SHEET NOTES: [Electronically signed by Rei Callahan DO (14:21 11/01/2016)] [Electronically signed by Liz Malone R.N. (16:25 11/01/2016)] [Electronically locked/signed by Liz Malone R.N. (16:25 11/01/2016)]
--- NOTE | 2016-11-01 11:47 | ED NURSING NOTES ---
Clinical Report - Nurses [place] [address] [place] [address] 11/01/2016 10:27 Patient: SUDHA BRIGGS TRIAGE Triage time 10:29. Acuity: LEVEL 2. Chief Complaint: CHEST PAIN. Alert. --10:33 Stuart Cosme R.N. 10:31 11/01/16. Pain level now 3/10. --10:33 Stuart Cosem R.N. SEPSIS SCREEN: Sepsis Screen. Negative (no infection suspected/documented). Heart rate greater than 90. Temperature not greater than 38.3 degrees C (101 degrees F). Respiratory rate not greater than 20. --10:35 Stuart Cosme R.N. 10:34 11/01/16. BP: 155/79. HR: 105. RR: 22. O2 saturation: 95% on room air. Temp: 98.1 F (oral). --10:35 Stuart Cosme R.N. Weight: 165.5 kg stated. Height/Length: 71 inches Per Patient. BMI: 50.9. --10:30 Stuart Cosme R.N. Medications Amitriptyline HCl Oral (Tablet 10 mg), at bedtime. --10:37 Stuart Cosme R.N. Tramadol HCL Oral, 3x a day. --10:37 Stuart Cosme R.N. Albuterol Sulfate HFA Inhalation (Aerosol Solution 108 (90 Base) mcg/act) 2 puffs, 4x a day as needed. --10:40 Stuart Cosme R.N. AmLODIPine Besylate Oral (Tablet 10 mg), daily. --10:41 Stuart Cosme R.N. Aspirin Low Dose Oral (Tablet Chewable 81 mg) 1 tablet, daily. --10:42 Stuart Cosme R.N. Atorvastatin Calcium Oral (Tablet 80 mg) 1 tablet, daily. --10:42 Stuart Cosme R.N. Augmentin Oral (Tablet 875-125 mg) 1 tablet, 2x a day. --10:43 Stuart Cosme R.N. Benzonatate Oral (Capsule 200 mg) 1 capsule, 3x a day as needed. --10:45 Stuart Cosme R.N. Carvedilol Phosphate ER Oral. --10:46 Stuart Cosme R.N. Cefdinir Oral (Capsule 300 mg) 1 capsule, 2x a day. --10:46 Stuart Cosme R.N. DULoxetine HCl Oral (Capsule Delayed Release Particles 30 mg) 2 capsules. --10:47 Stuart Cosme R.N. Flonase Nasal (Suspension 50 mcg/act) 2 sprays, daily. --10:47 Stuart Cosme R.N. Gabapentin Oral 1200 mg, 3x a day. --10:48 Stuart Cosme R.N. HumaLOG Subcutaneous (Solution 100 unit/mL) 20-30 units , before meals. --10:49 Stuart Cosme R.N. Lantus Subcutaneous (Solution 100 unit/mL) 60 units, 2x a day. --10:50 Stuart Cosme R.N. Lisinopril Oral 10 mg, 2x a day. --10:51 Stuart Cosme R.N. Nitroglycerin Sublingual (Tablet Sublingual 0.4 mg), as needed. --10:53 Stuart Cosme R.N. [place] 3 Oral. --10:55 Stuart Cosme R.N. ProAir HFA Inhalation (Aerosol Solution 108 (90 Base) mcg/act), as needed. --10:55 Stuart Cosme R.N. Uloric Oral (Tablet 80 mg), daily. --10:55 Stuart Cosme R.N. Vitamin B-12 Oral. --10:56 Stuart Cosme R.N. Ranitidine HCl Oral 150 mg, 2x a day. --10:56 Stuart Cosme R.N. ZyrTEC Allergy Oral (Tablet 10 mg) 1 tablet, daily. --11:00 Stuart Cosme R.N. The following entry was struck and corrected by Stuart Cosme R.N., 10:40 (11/01/16) Reason for correction - other(correction). <<STRICKEN ENTRY-- Amitriptyline HCl Oral. --10:37 Stuart Cosme R.N. --END STRIKE>> The following entry was struck by Stuart Cosme R.N., 10:40 (11/01/16) Reason - other. <<STRICKEN ENTRY-- Albuterol Sulfate Inhalation. --10:37 Stuart Cosme R.N. --END STRIKE>>. Allergies Metoprolol Succinate. --10:36 Stuart Cosme R.N. Claritin. --10:37 Stuart Cosme R.N. History Arrived by private vehicle. Historian: patient. Accompanied by family. Primary physician (nri). ( chest pain starting at 0800. States he was awoken from sleep by it. States he had a [address] way CABG in 2002. Denies pain radiating or changing. Also complaining of dizziness.). This started today. Treatment ADMISSIONS MANAGER RN: (excedrin). SOCIAL HX: Never smoker. No alcohol use or drug use. ABUSE ASSESSMENT: No report of abuse. FALL RISK ASSESSMENT: Fall risk assessment completed. No fall risk identified. NUTRITIONAL RISK ASSESSMENT: The nutritional risk assessment revealed no deficiencies. FUNCTIONAL ASSESSMENT: Functional assessment: no impairments noted. LEARNING NEEDS ASSESSMENT: The learning needs assessment revealed no barriers. SKIN INTEGRITY ASSESSMENT: Skin integrity risk assessment completed. No skin integrity risk identified. --10:33 Stuart Cosme R.N. ( states he is being treated for pink eye and a sinus infection). --10:34 Stuart Cosme R.N. PROBLEMS: Dyspnea. Chest Pain. Renal Failure. Anxiety Reaction. Hyperlipidemia. Gastroesophageal Reflux. Rib Fracture. Knee Injury. Pedal Edema. Coronary Artery Disease. Hypercholesterolemia. Dehydration. Hyperglycemia. Vomiting. Immunizations. Hypertension. Heart Disease. Diabetes Mellitus. --10:36 Stuart Cosme R.N. ADDITIONAL SURGERIES: Coronary Artery Bypass Graft. --10:36 Stuart Cosme R.N. Interventions ID band on patient. To treatment room. --10:33 Stuart Cosme R.N. PHYSICAL ASSESSMENT To room via wheelchair. GENERAL / NEURO / PSYCH: Alert. Oriented X 4. Appears anxious. CVS: Capillary refill less than 2 seconds. SKIN: Skin is warm and dry. Skin is non-tender. --11:01 Stuart Cosme R.N. NURSING PROGRESS NOTES 10:32. The plan of care for this patient has been created. athletic monitor, pulse oximeter and NIBP monitor placed on patient. Patient gowned. Head of bed elevated. ( asa Prior to arrival, MD aware). Call light placed in reach. Bed placed in lowest position. Brakes of bed on. Patient ready for evaluation- chart flagged and ED physician notified. --11:09 Stuart Cosme R.N. 11:00. Overall patient status is the same. --11:08 Stuart Cosme R.N. 11:04 11/01/2016 NITROGLYCERIN PASTE Topical Paste 1.5 inch. Applied to the left chest. Allergies verified and confirmed 5 rights. --11:10 Stuart Cosme R.N. 11:04 11/01/2016 Nitroglycerin SL Tablets 0.4 mg given. Allergies verified and confirmed 5 rights. --11:11 Stuart Cosme R.N. 11:11 11/01/16. BP: 145/79. HR: 101. RR: 18. O2 saturation: 94%. --11:11 Stuart Cosme R.N. Reassessment after medication administered. He reports no complaints, he is calm and he has had no adverse reaction. ( MD and RN notified). CVS: The patient reports chest pain is gone now. --11:13 Stuart Cosme R.N. 11:16 11/01/16. BP: 129/72. HR: 103. RR: 24. Pain level now 0/10. --11:16 Stuart Cosme R.N. EKG time: (1032). EKG was ordered, performed by a tech and shown to the ED physician. --11:22 Liz Malone R.N. ( 10:40 no asa given. Pt states he took 650mg of asa ADMISSIONS MANAGER RN. Provider notified.). --11:22 Liz Malone R.N. 10:30 11/01/2016 Site #1 started via IV in the right hand with an 20g angiocath, with aseptic technique and good blood return. Blood drawn: rainbow set. Labeled in the presence of the patient and sent to the lab. Saline lock flushed. --11:26 Liz Malone R.N. 10:47 11/01/2016 Started bag #1 1000 mL IV Fluids IV NS (Saline); at 1000 mL/hr over 30 minute(s) via site #1 via IV pump. Allergies verified and confirmed 5 rights. IV patency established. IV site checked: no pain, redness, or swelling. IV flushed thoroughly pre- and post-medication administration. --11:26 Liz Malone R.N. 11:24 11/01/16. Checked patient name and birthdate: patient confirmed urine collected with return of yellow-colored clear urine; sample sent to lab for urinalysis. Specimen labeled in the presence of the patient. --11:24 Brenda Fischer R.N. 10:42. Portable chest x-ray ordered, performed and shown to the ED physician. --11:27 Liz Malone R.N. 11:35 11/01/16. BP: 116/63. HR: 102. RR: 18. O2 saturation: 95% on room air. Temp: 98.8 F (oral). --11:36 Brenda Fischer R.N. 11:57 11/01/16. The patient reports no complaints and he is calm and resting quietly. --11:57 Stuart Cosme R.N. 12:26 11/01/2016 IV Fluids IV NS Discontinued: bag #1 infused. Total amount infused: 1000 mL. IV patency established. IV site checked: no pain, redness, or swelling. IV flushed thoroughly. --12:26 Stuart Cosme R.N. Assisted patient (to sit at edge of bed). --12:38 Stuart Cosme R.N. 13:19 11/01/16. Oxygen administered by nasal cannula at 2 liters. ( Pt given ice water). --13:19 Brenda Fischer R.N. 13:40 11/01/16. BP: 101/70. HR: 92. RR: 23. O2 saturation: 94% on room air. Pain level now 0/10. --13:41 Stuart Cosme R.N. 13:48 11/01/16. BP: 101/70. HR: 95. RR: 18. O2 saturation: 96%. Temp: 98.3 F. Pain level now 5/10. --13:51 Liz Malone R.N. DISPOSITION / DISCHARGE 13:51 11/01/2016 Site #[address] upon admission; patent, no pain and no signs of infiltration. No blood return present. Flushed with 10 mL saline; flushes easily. --13:52 Liz Malone R.N. ( 13:48 11/01/16. BP: 101/70. HR: 95. RR: 18. O2 saturation: 96%. Temp: 98.3 F. Pain level now 5/10. 13:51 Liz Malone R.N.). --13:52 Liz Malone R.N. 14:00. Departure time: 14:00. Admitted to Acute Care. Transported via wheelchair by RF Code. Report was given to a nurse via a phone call. Report included patient's care, treatment, medications, reviewed medication reconcilliation, and condition (including any recent changes or anticipated changes). All questions were answered. (to Kalee). ( provider aware of admit v/s no new orders received at this time.). Patient's personal items; items were placed in belongings bag, given to the patient and transported with the patient. --15:43 Liz Malone R.N. Locked/Released at 11/01/2016 16:25 by Liz Malone R.N.
--- NOTE | 2016-11-01 11:47 | ED ORDER SUMMARY ---
..... Patient: SUDHA BRIGGS OrderSheet [facility] VisitID: [id number] [address] [place] [address] 51y, M Registration Date/Time: 11/01/2016 ORDER SHEET Weight: 165.5 kg (stated) Allergies: Metoprolol Succinate, Claritin GENERAL ORDERS: Chest 1V Urgent (10:36 11/01/2016 PHutchinson DO) (Ack 10:38 KHoerner) (10:43 SReitz R.N.) Merchandise Examiner (Continuous) (10:36 11/01/2016 PHutchinson DO) (11:10 KWilliams R.N.) UA-Culture if indicated Urgent (10:37 11/01/2016 PHutchinson DO) (Ack 10:38 KHoerner) (11:54 KWilliams R.N.) Cardiac Panel Stat (10:37 11/01/2016 PHutchinson DO) (Ack 10:38 KHoerner) (11:10 KWilliams R.N.) BNP Urgent (10:37 11/01/2016 PHutchinson DO) (Ack 10:38 KHoerner) (11:10 KWilliams R.N.) Amylase Urgent (10:37 11/01/2016 PHutchinson DO) (Ack 10:38 KHoerner) (11:10 KWilliams R.N.) Lipase Urgent (10:37 11/01/2016 PHutchinson DO) (Ack 10:38 KHoerner) (11:10 KWilliams R.N.) Urine Drug Screen Urgent (10:37 11/01/2016 PHutchinson DO) (Ack 10:38 KHoerner) (11:54 KWilliams R.N.) Oxygen (2 L/min) (NC) (10:37 11/01/2016 PHutchinson DO) (10:43 SReitz R.N.) Pulse oximeter (10:37 11/01/2016 PHutchinson DO) (10:43 SReitz R.N.) EKG - ER Stat (10:37 11/01/2016 PHutchinson DO) (Ack 10:38 KHoerner) (10:43 Vesta R.N.) Vitals (10:37 11/01/2016 [facility] (10:43 Vesta R.N.) Old Records (from [facility]) (11:47 11/01/2016 PHtxchinson DO) (Ack 11:55 KHoerner) (11:57 KHoerner) Call (Place call to): (Dr Hearn) (11:48 11/01/2016 [facility]) (11:55 KHoerner) MEDICATION ORDERS: Aspirin PO 325 mg (NOW) (10:36 11/01/2016 [facility] DO) (Cancelled: Other10:43 Vesta R.N.) NitroGLYCERIN Paste Topical 1.5 in. (NOW, to CW) (11:03 11/01/2016 [facility] DO) (11:10 Parisa R.N.) NitroGLYCERIN SL 0.4 mg (x3 PRN Chest Pain) (11:03 11/01/2016 [facility]) (11:11 KWjocelinams R.N.) IV FLUIDS: IV NS : initial bolus 500 mL (1000 mL/hr), then 500 mL/hr for X2 (NOW) (10:36 11/01/2016 [facility]) (11:26 Vesta R.N.) ORDER SHEET NOTES: [Electronically signed by Rei Callahan DO (14:21 11/01/2016)] [Electronically signed by Liz Malone R.N. (16:25 11/01/2016)] [Electronically locked/signed by Liz Malone R.N. (16:25 11/01/2016)]
--- NOTE | 2016-11-01 13:59 | Progress Note ---
Subjective General Admission History and Physical Examination/24-hour observation note Patient Name: Romain Beltran Admission Date: November 01, 2016 Primary Care Provider: Tayler SIDDIQI Attending Physician: Dallin Hearn M.D. Admitting Physician: Dallin Hearn M.D. Code Status: Full Code Room: 201 SUBJECTIVE Historian: Patient Reliability: Good Chief Complaint: Chest pain History of Present Illness: The patient is a 51-year-old single white male with a significant past mental history of diabetes mellitus, hypertension, coronary disease status post CABG, who presented to [facility] emergency department on the day of admission secondary to complaints of chest pain. [facility] ER evaluation was consistent with chest pain rule out ACS. Secondary to the above the patient was admitted I will sonal Hearn M.D. for further evaluation treatment. PAST MEDICAL HISTORY Illnesses: 1. Diabetes mellitus 2. Hypertension 3. Coronary disease status post CABG 5 4. Diabetic neuropathy 5. Obstructive sleep apnea 6. Chronic kidney disease 7. Reactive airway disease/asthma Allergies: 1. Claritin 2. Metoprolol Medications: 1. Amitriptyline 10 mg by mouth daily at bedtime 2. Tramadol 50 mg by mouth 3 times a day when necessary pain 3. Albuterol HFA 2 inhalations 4 times a day when necessary shortness of breath 4. Aspirin 81 mg by mouth daily 5. Amlodipine 10 mg by mouth daily 6. Lipitor 80 mg by mouth daily 7. Augmentin 875 mg by mouth twice a day 8. Coreg dosage unknown one by mouth daily 9. Duloxetine 30 mg 2 by mouth daily 10. Flonase 2 sprays each nostril daily 11. Gabapentin 1200 mg by mouth 3 times a day 12. Humalog 20-30 minutes subcutaneous before meals 13. Lantus 6 units subcutaneous twice a day 14. Lisinopril 10 mg by mouth twice a day 15. Nitroglycerin 0.4 mg sublingual when necessary chest pain 16. Uloric 80 mg by mouth daily 17. Zantac 150 mg by mouth twice a day 18. Zyrtec 10 mg by mouth daily Surgery: 1. Bypass surgery 5 vessels Injuries: 1. Left foot fracture Hospitalizations: 1. For above surgery and medical problems. FAMILY HISTORY Parents: 1. Father, Murphy, , 60, unknown cause, 2. Mother, Grisel, , 60, ovarian CA Siblings: 1. Male, Murphy, living, 53, leg amputation 2. Female, Crystal, living, 56, healthy 3. Female, Dot, , 47, CHF Children: 1. None Other significant family history: None SOCIAL HISTORY 1. Marital Status: Single 2. Sikhism: Toribio 3. Education: High school, 12 grade. 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 Occupational health exposures: Dust, lead, loud noises, heavy lifting HABITS 1. Tobacco: None 2. Drugs: None 3. Alcohol: None 4. Caffeine: None HEALTH SUPERVISION Item/Test 1. Vision screen: No recent 2. Cholesterol Profile: 2016 3. PSA: No recent 4. LATOYA: No recent 5. FOBT: No recent 6. Blood Glucose: 2017 7. Colonoscopy: No previous 8. History and physical exam: 2015 9. Audiogram: No recent 10. Mammogram: Not applicable 11. Pap/pelvic exam: Not applicable IMMUNIZATIONS: 1. Pneumococcal: No previous 2. Influenza: 2017 3. Tetanus: Unknown ADVANCED DIRECTIVES: 1. Living well: No 2. POLST: No 3. Code Status: FULL CODE 4. 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 Donor card: No REVIEW OF SYSTEMS Remarkable for those things stated in the history of present illness and past medical history. Seventeen point review of system completed with the following notable findings: General: Pain, fever, weakness Eyes: Redness, visual loss, corrective lenses required for decreased visual acuity Ears: Ringing, earache Nose: Recurrent sinusitis, nasal discharge Throat, sore throat Respiratory: Shortness of breath Cardiovascular: Chest tightness, past heart rate, hypertension Genitourinary: Frequency of urination Gastrointestinal: Heartburn Muscle skeletal: Joint stiffness, joint pain, backache muscle cramping Neurological: Balance problems headaches Endocrine: Diabetes, heat/cold intolerance Physical Exam Vital Signs / I&Os Blood pressure: 97/58 mmHg Heart rate: 88/minute respiratory rate: 22 Temperature: 97.9 Fahrenheit Pulse oximetry: 95% room air General Appearance Alert, Oriented X3, Cooperative, No acute distress HEENT Atraumatic, PERRLA, EOMI, Moist mucous membranes Lungs Clear to auscultation, Normal air movement Cardiovascular Regular rate and rhythm, Normal S1 and S2, No murmurs, gallops, rubs Abdomen Normal bowel sounds, Soft, No tenderness, No guarding Extremities No cyanosis, No clubbing Neurological Cranial nerves intact, Strength 5/5 x4 ext's, No lateralizing signs Psych/Mental Status Mental status normal, Mood normal LAB Results Laboratory Tests 11/01 11/01 11/01 1120 1100 1037 Chemistry Plasma Sodium (136 - 145 mmol/L) 139 Plasma Potassium (3.5 - 5.1 mmol/L) 4.2 Plasma Chloride (98 - 107 mmol/L) 104 CO2 (Enzymatic) (21 - 32 mmol/L) 23 BUN (7 - 18 mg/dL) 34 Creatinine (0.6 - 1.3 mg/dL) 1.8 Est GFR ( Amer) (mL/min) 51.50 Est GFR (Non-Af Amer) (mL/min) 42.49 Glucose (70 - 110 mg/dL) 276 Plasma Calcium (8.5 - 10.1 mg/dL) 9.0 Plasma Magnesium (1.8 - 2.4 mg/dL) 1.4 Total Bilirubin (0.0 - 1.0 mg/dL) 0.5 AST (15 - 37 U/L) 18 ALT (12 - 78 U/L) 34 Alkaline Phosphatase (46 - 116 U/L) 139 Creatine Kinase (24 - 260 U/L) 92 Troponin (0.00 - 1.5 ng/mL) <0.05 Total Protein (6.4 - 8.2 g/dL) 6.8 Albumin (3.3 - 5.0 g/dL) 3.0 Amylase (25 - 115 U/L) 77 Cancelled Lipase (73 - 393 U/L) 206 Cancelled Toxicology Urine Opiates Screen (NEGATIVE) NEGATIVE Urine Methadone Screen (NEGATIVE) NEGATIVE Ur Barbiturates Screen (NEGATIVE) NEGATIVE U Amphetamin/Meth Scrn (NEGATIVE) NEGATIVE MDMA (Ecstasy) Screen (NEGATIVE) NEGATIVE U Benzodiazepines Scrn (NEGATIVE) NEGATIVE Urine Cocaine Screen (NEGATIVE) NEGATIVE U Cannabinoids Screen (NEGATIVE) NEGATIVE Urines Urine Color YELLOW Urine Appearance CLEAR Urine pH (5.0 - 8.0) 6.0 Ur Specific [place] (1.010 - 1.030) 1.020 Urine Protein (NEGATIVE) 1+ Urine Ketones (NEGATIVE) NEGATIVE Urine Blood (NEGATIVE) TRACE-INTACT Urine Nitrite (NEGATIVE) NEGATIVE Urine Bilirubin (NEGATIVE) NEGATIVE Urine Urobilinogen (0.2 - 1.0 EU/dL) 0.2 Ur Leukocyte Esterase (NEGATIVE) NEGATIVE Urine RBC (0 - 1 rbc/hpf) NONE SEEN Urine WBC (0 - 1 wbc/hpf) NONE SEEN Ur Epithelial Cells (0 - 5 EPI/hpf) RARE Urine Bacteria (NONE SEEN) NONE SEEN Urine Glucose (NEGATIVE) 1+ Urine Comment CULT NOT INDICATED 11/01 1035 Chemistry B-Natriuretic Peptide (5 - 100 pg/ml) 86.5 Hematology WBC (4.5 - 11.5 K/uL) 8.3 RBC (4.50 - 5.90 M/uL) 4.96 Hgb (13.5 - 17.5 gm/dL) 13.9 Hct (41.0 - 53.0 %) 42.6 MCV (80 - 100 fL) 86 MCH (26 - 34 pg) 28 RDW (11.6 - 14.8 %) 16.3 Neut % (Auto) (50 - 75 %) 73.4 Lymph % (Auto) (25 - 40 %) 10.1 Jay % (Auto) (3 - 14 %) 0.1 Eos % (Auto) (0 - 4 %) 16.2 Baso % (Auto) (0 - 2 %) 0.2 Plt Count, EDTA (150 - 400 K/uL) 277 PUBS MCHC (31 - 37 g/dL) 33 Imaging Chest X-Ray IMPRESSION: 1. No acute changes 2. CABG Dictated by: GAIL EAGLE MD D: CHELLE;11/01/16 1057 Assessment and Plan Problem List 1. Chest pain Plan -Patient presents with history of chest discomfort. -Symptoms clearly consistent with chest wall discomfort/pain -Troponin negative -EKG shows no acute changes -Discharge this p.m. with outpatient follow-up with PCP next week. 2. Chronic renal insufficiency Plan -Patient with history of chronic renal insufficiency -BUN/creatinine stable with previous findings. -Being creatinine 34/1.8 -Follow up with PCP as scheduled. 3. Sinusitis Status Acute Onset Date Unknown Plan -Patient recently diagnosed with sinusitis. -Currently on Augmentin 875 mg by mouth twice a day. -Patient has had recurrent sinusitis. -I have recommended follow-up with PCP/ENT for persistent symptoms this week -Patient afebrile with normal WBC at this time. Current status: Fair, stable Anticipated discharge date: Today Anticipated discharge placement: Home Patient care time: Time spent in chart review, patient interview, physical exam, CPOE, and care documentation: 70 minutes Visit to patient today: 2 Complexity of care: Moderate The patient will be discharged to home. Chest pain clearly noncardiac in origin. Encourage follow-up for sinusitis with PCP. E&M Codes Admit & Discharge: Comp/Moderate/79002
[2016-11-01 14:13] VITALS: BP 97/52
[2016-11-01] MEDS ORDERED: AMLODIPINE BESY10 MG PO (15:31)
[2016-11-01] MEDS ORDERED: BENZONATATE200 MG PO (15:34)
[2016-11-01] MEDS ORDERED: CARVEDILOL25 MG PO (15:35)
[2016-11-01] MEDS ORDERED: CYMBALTA30 MG PO (15:36)
[2016-11-01] MEDS ORDERED: CEFDINIR300 MG (15:36)
[2016-11-01] MEDS ORDERED: LISINOPRIL10 MG PO (15:43)
[2016-11-01] MEDS ORDERED: NITROSTAT0.4 MG SL (15:44)
[2016-11-01] MEDS ORDERED: [UNRECOGNIZED DRUG - SUPPLY] (15:45)
[2016-11-01] MEDS ORDERED: PROAIR HFA IN (15:46)
[2016-11-01] MEDS ORDERED: ULORIC80 MG (15:47)
--- NOTE | 2016-11-01 16:25 | ED MAR SUMMARY ---
..... Medication Administration Record [facility] [address] [place] [address] Patient: SUDHA BRIGGS Visit ID: [id number] 51y, M Weight: 165.5 kg Height/Length: 71 in BMI: 50.9 ALLERGIES: Metoprolol Succinate, Claritin Start 10:47 11/01/2016 Liz Malone R.N., Stop 12:26 11/01/2016 Stuart Cosme R.N. Medication Administered: IV NS (SALINE), Dose: IV Fluids over 30 minute(s), Rate: 1000 mL/hr, Dispensed: 1000 mL bag, Site: #1 right hand. Medication Ordered: IV NS : initial bolus 500 mL (1000 mL/hr), then 500 mL/hr for X2 (NOW). Given 11:04 11/01/2016 Stuart Cosme R.N. Medication Administered: NITROGLYCERIN PASTE [TOPICAL], Dose: 1.5 in. Paste Topical. Medication Ordered: NitroGLYCERIN Paste Topical 1.5 in. (NOW, to CW). Given 11:04 11/01/2016 Stuart Cosme R.N. Medication Administered: NITROGLYCERIN [SL], Dose: 0.4 mg Tablets SL. Medication Ordered: NitroGLYCERIN SL 0.4 mg (x3 PRN Chest Pain).
--- NOTE | 2016-11-01 16:25 | ED MED RECONCILIATION SUMMARY ---
Patient: SUDHA BRIGGS Medication Reconciliation Report [facility] VisitID: [id number] [place] [address] 51y, M Registration Date/Time: 11/01/2016 Weight: 165.5 kg Height/Length: 71 in. BMI: 50.9 ALLERGIES: Claritin, Metoprolol Succinate The patient's Home Medications are listed below: THE FOLLOWING MEDICATIONS NEED TO BE RECONCILED: Albuterol Sulfate HFA Inhalation (108 (90 Base) mcg/act) 2 puffs, 4x a day Amitriptyline HCl Oral (10 mg), at bedtime AmLODIPine Besylate Oral (10 mg), daily Aspirin Low Dose Oral (81 mg) 1 tablet, daily Atorvastatin Calcium Oral (80 mg) 1 tablet, daily Augmentin Oral (875-125 mg) 1 tablet, 2x a day Benzonatate Oral (200 mg) 1 capsule, 3x a day Carvedilol Phosphate ER Oral Cefdinir Oral (300 mg) 1 capsule, 2x a day DULoxetine HCl Oral (30 mg) 2 capsules Flonase Nasal (50 mcg/act) 2 sprays, daily Gabapentin Oral 1200 mg, 3x a day HumaLOG Subcutaneous (100 unit/mL) 20-30 units , before meals Lantus Subcutaneous (100 unit/mL) 60 units, 2x a day Lisinopril Oral 10 mg, 2x a day Nitroglycerin Sublingual (0.4 mg) [place] 3 Oral ProAir HFA Inhalation (108 (90 Base) mcg/act) Ranitidine HCl Oral 150 mg, 2x a day Tramadol HCL Oral, 3x a day Uloric Oral (80 mg), daily Vitamin B-12 Oral ZyrTEC Allergy Oral (10 mg) 1 tablet, daily The source(s) of the original Home Medication information: Not obtained. The following Medications were given to the patient in the Emergency Department: NITROGLYCERIN PASTE [TOPICAL] Topical 1.5 in., administered: 11/01/2016 11:04:00 AM Nitroglycerin [SL] SL 0.4 mg, administered: 11/01/2016 11:04:00 AM IV NS IV Fluids bolus 0, then 1000 mL/hr, administered: 11/01/2016 10:47:00 AM The following Medications were prescribed to the patient: None.
--- NOTE | 2016-11-01 16:25 | ED MED RECONCILIATION SUMMARY ---
Patient: SUDHA BRIGGS Medication Reconciliation Report [facility] VisitID: [id number] [place] [address] 51y, M Registration Date/Time: 11/01/2016 Weight: 165.5 kg Height/Length: 71 in. BMI: 50.9 ALLERGIES: Claritin, Metoprolol Succinate The patient's Home Medications are listed below: THE FOLLOWING MEDICATIONS NEED TO BE RECONCILED: Albuterol Sulfate HFA Inhalation (108 (90 Base) mcg/act) 2 puffs, 4x a day Amitriptyline HCl Oral (10 mg), at bedtime AmLODIPine Besylate Oral (10 mg), daily Aspirin Low Dose Oral (81 mg) 1 tablet, daily Atorvastatin Calcium Oral (80 mg) 1 tablet, daily Augmentin Oral (875-125 mg) 1 tablet, 2x a day Benzonatate Oral (200 mg) 1 capsule, 3x a day Carvedilol Phosphate ER Oral Cefdinir Oral (300 mg) 1 capsule, 2x a day DULoxetine HCl Oral (30 mg) 2 capsules Flonase Nasal (50 mcg/act) 2 sprays, daily Gabapentin Oral 1200 mg, 3x a day HumaLOG Subcutaneous (100 unit/mL) 20-30 units , before meals Lantus Subcutaneous (100 unit/mL) 60 units, 2x a day Lisinopril Oral 10 mg, 2x a day Nitroglycerin Sublingual (0.4 mg) [place] 3 Oral ProAir HFA Inhalation (108 (90 Base) mcg/act) Ranitidine HCl Oral 150 mg, 2x a day Tramadol HCL Oral, 3x a day Uloric Oral (80 mg), daily Vitamin B-12 Oral ZyrTEC Allergy Oral (10 mg) 1 tablet, daily The source(s) of the original Home Medication information: Not obtained. The following Medications were given to the patient in the Emergency Department: NITROGLYCERIN PASTE [TOPICAL] Topical 1.5 in., administered: 11/01/2016 11:04:00 AM Nitroglycerin [SL] SL 0.4 mg, administered: 11/01/2016 11:04:00 AM IV NS IV Fluids bolus 0, then 1000 mL/hr, administered: 11/01/2016 10:47:00 AM The following Medications were prescribed to the patient: None.
--- NOTE | 2016-11-01 16:25 | ED MAR SUMMARY ---
..... Medication Administration Record [facility] [address] [place] [address] Patient: SUDHA BRIGGS Visit ID: [id number] 51y, M Weight: 165.5 kg Height/Length: 71 in BMI: 50.9 ALLERGIES: Metoprolol Succinate, Claritin Start 10:47 11/01/2016 Liz Malone R.N., Stop 12:26 11/01/2016 Stuart Cosme R.N. Medication Administered: IV NS (SALINE), Dose: IV Fluids over 30 minute(s), Rate: 1000 mL/hr, Dispensed: 1000 mL bag, Site: #1 right hand. Medication Ordered: IV NS : initial bolus 500 mL (1000 mL/hr), then 500 mL/hr for X2 (NOW). Given 11:04 11/01/2016 Stuart Cosme R.N. Medication Administered: NITROGLYCERIN PASTE [TOPICAL], Dose: 1.5 in. Paste Topical. Medication Ordered: NitroGLYCERIN Paste Topical 1.5 in. (NOW, to CW). Given 11:04 11/01/2016 Stuart Cosme R.N. Medication Administered: NITROGLYCERIN [SL], Dose: 0.4 mg Tablets SL. Medication Ordered: NitroGLYCERIN SL 0.4 mg (x3 PRN Chest Pain).
--- NOTE | 2016-11-01 16:25 | ED DISCHARGE INSTRUCTIONS ---
Patient: SUDHA BRIGGS General Instructions [facility] VisitID: [id number] [address] [place] [address] 51y, M Registration Date/Time: 11/01/2016 Chest pain characterized as "discomfort" .12 lead EKG performed. Chronic, moderately well controlled type 2 diabetes with hyperglycemia. No coma. Chronic renal insufficiency. (Electronically signed by Rei Callahan DO 11/01/2016 14:21)
--- NOTE | 2016-11-01 16:25 | ED DISCHARGE INSTRUCTIONS ---
Patient: SUDHA BRIGGS General Instructions [facility] VisitID: [id number] [address] [place] [address] 51y, M Registration Date/Time: 11/01/2016 Chest pain characterized as "discomfort" .12 lead EKG performed. Chronic, moderately well controlled type 2 diabetes with hyperglycemia. No coma. Chronic renal insufficiency. (Electronically signed by Rei Callahan DO 11/01/2016 14:21)
[2016-11-01] MEDS ORDERED: AMOXICILLIN/CL875 MG PO (18:23)
--- NOTE | 2016-11-01 18:23 | Provider's Discharge Care Plan ---
Problem, Goal, Plan Problem List 1. Chest pain Goals: Improve disease control, Prevent disease progress Instructions: Follow up as directed, Take meds as directed 2. Sinusitis Goals: Improve disease control, Prevent disease progress Instructions: Follow up as directed, Take meds as directed
[2016-11-01] MEDS ORDERED: MAG6464 MG PO (18:37)
== END 2016-11-01 20:09 | disposition home or self-care (01) ==
LOC: ED SRH 10:26 → TRANS SRH 12:35 → ACUTE2 SRH 14:10
PROVIDERS: ADMIT Emergency Medicine
DX: R07.89 Other chest pain (principal); J01.90 Acute sinusitis, unspecified; I25.10 Atherosclerotic heart disease of native coronary artery without angina pectoris; E11.65 Type 2 diabetes mellitus with hyperglycemia; E11.22 Type 2 diabetes mellitus with diabetic chronic kidney disease; N18.9 Chronic kidney disease, unspecified; E11.40 Type 2 diabetes mellitus with diabetic neuropathy, unspecified; Z79.4 Long term (current) use of insulin; Z95.1 Presence of aortocoronary bypass graft
CPT/HCPCS: 29230; 29251; 85241; 90004; 90074; 90098; 90100; 90616; 91286; 91320; 92235; 92530; 92610; 92720; 92760; 92761; 92762; 92763; 92764; 92765; 92766; 92767; 95059

== ENCOUNTER 2016-11-11 20:25 | Emergency (ER) | payer OTHER ==
[~2016-11-11 20:25] MED LIST changes: +AMLODIPINE BESY10 MG PO; +AMOXICILLIN/CL875 MG PO; +BENZONATATE200 MG PO; +CARVEDILOL25 MG PO; +CEFDINIR300 MG; +CYMBALTA30 MG PO; +MAG6464 MG PO; +NITROSTAT0.4 MG SL; +PROAIR HFA IN; +ULORIC80 MG; +[UNRECOGNIZED DRUG - SUPPLY]
--- NOTE | 2016-11-11 21:18 | ED ORDER SUMMARY ---
..... Patient: SUDHA BRIGGS OrderSheet [facility] VisitID: [id number] [address] [place] [address] 51y, M Registration Date/Time: 11/11/2016 ORDER SHEET Weight: 163.2 kg Allergies: Claritin, Metoprolol Succinate GENERAL ORDERS: MEDICATION ORDERS: Benadryl IM 50 mg (NOW) (21:03 11/11/2016 HBivens A.R.N.P.) (21:13 TBowen R.N.) Decadron IM 6 mg (NOW) (21:04 11/11/2016 HBivens A.R.N.P.) (21:12 TBowen R.N.) Pepcid PO 40 mg (NOW) (21:04 11/11/2016 HBivens A.R.N.P.) (21:12 TBowen R.N.) IV FLUIDS: ORDER SHEET NOTES: [Electronically signed by Clau Chirinos R.N. (21:11/11/2016)] [Electronically signed by Kamila ArreolaR.N.PFallon (22:02 11/11/2016)] [Electronically locked/signed by Clau Chirinos R.N. (21:11/11/2016)]
--- NOTE | 2016-11-11 21:18 | ED NURSING NOTES ---
Clinical Report - Nurses [facility] [address] [place] [address] 11/11/2016 20:24 Patient: SUDHA BRIGGS TRIAGE Triage time 20:30. Acuity: LEVEL 4. Chief Complaint: REDNESS, PAIN and VISION PROBLEM TO LEFT EYE. Alert. VISUAL ACUITY: Visual acuity performed without corrective lenses: left eye 20/40; right eye 20/20; both eyes 20/20. --20:33 TonyaB, R.N. 20:30 11/11/16. BP: 142/82. HR: 95. RR: 18. O2 saturation: 97%. Temp: 98.1 F. Pain level now: 5/10. --20:33 TonyaB, R.N. Weight: 163.2 kg. Height/Length: 71 inches. BMI: 50.2. --20:32 TonyaB, R.N. Medications Albuterol Sulfate HFA Inhalation (Aerosol Solution 108 (90 Base) mcg/act) 2 puffs, 4x a day as needed. Amitriptyline HCl Oral (Tablet 10 mg), at bedtime. AmLODIPine Besylate Oral (Tablet 10 mg), daily. Aspirin Low Dose Oral (Tablet Chewable 81 mg) 1 tablet, daily. Atorvastatin Calcium Oral (Tablet 80 mg) 1 tablet, daily. Augmentin Oral (Tablet 875-125 mg) 1 tablet, 2x a day. Benzonatate Oral (Capsule 200 mg) 1 capsule, 3x a day as needed. Carvedilol Phosphate ER Oral. Cefdinir Oral (Capsule 300 mg) 1 capsule, 2x a day. --20:33 TonyaB, R.N. DULoxetine HCl Oral (Capsule Delayed Release Particles 30 mg) 2 capsules. Flonase Nasal (Suspension 50 mcg/act) 2 sprays, daily. Gabapentin Oral 1200 mg, 3x a day. HumaLOG Subcutaneous (Solution 100 unit/mL) 20-30 units , before meals. Lantus Subcutaneous (Solution 100 unit/mL) 60 units, 2x a day. Lisinopril Oral 10 mg, 2x a day. Nitroglycerin Sublingual (Tablet Sublingual 0.4 mg), as needed. [place] 3 Oral. ProAir HFA Inhalation (Aerosol Solution 108 (90 Base) mcg/act), as needed. Ranitidine HCl Oral 150 mg, 2x a day. Tramadol HCL Oral, 3x a day. Uloric Oral (Tablet 80 mg), daily. Vitamin B-12 Oral. ZyrTEC Allergy Oral (Tablet 10 mg) 1 tablet, daily. --20:33 Sumit Monreal. Allergies Claritin. Metoprolol Succinate. --20:33 Sumit Monreal. History Arrived by private vehicle. Historian: patient. This started just prior to arrival. He did not sustain an injury. He has had eye discomfort and blurred vision. 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 PAST MEDICAL HX: Immunizations: up-to-date. SOCIAL HX: Never smoker. No alcohol use or drug use. No infectious disease exposure. FALL RISK ASSESSMENT: Fall risk assessment completed. No fall risk identified. NUTRITIONAL RISK ASSESSMENT: The nutritional risk assessment revealed no deficiencies. FUNCTIONAL ASSESSMENT: Functional assessment: no impairments noted. LEARNING NEEDS ASSESSMENT: The learning needs assessment revealed no barriers. SKIN INTEGRITY ASSESSMENT: Skin integrity risk assessment completed. No skin integrity risk identified. --20:33 Stacy Monreal PROBLEMS: Dyspnea. Chest Pain. Renal Failure. Anxiety Reaction. Hyperlipidemia. Gastroesophageal Reflux. Environmental Allergies. Food Poisoning. Knee Injury. Pedal Edema. Coronary Artery Disease. Hypercholesterolemia. Dehydration. Hyperglycemia. Vomiting. Immunizations. Hypertension. Heart Disease. Diabetes Mellitus. --21:15 Stacy Monreal The following entry was modified by Stacy Monreal, 21:14 <<STRICKEN ENTRY-- Anxiety Reaction. --00:31 Sumit Monreal. --END STRIKE>>. ADDITIONAL SURGERIES: Coronary Artery Bypass Graft. --21:15 Stacy Monreal Interventions ID band on patient. To treatment room. --20:33 Stacy Monreal PHYSICAL ASSESSMENT Ambulatory to room. GENERAL / NEURO / PSYCH: Alert. Appears in no acute distress. No double vision. No dysconjugate gaze. HEENT: No facial asymmetry noted. Conjunctival findings present: redness of the left conjunctiva. No visual field deficit or nystagmus. Right ear within normal limits. Left ear within normal limits. Mouth inspection within normal limits. Pharynx within normal limits. No photophobia or ocular injury. RESPIRATORY: Respirations not labored. CVS: Capillary refill less than 2 seconds. SKIN: Skin is warm and dry. Normal skin turgor. --20:34 Stacy Monreal NURSING PROGRESS NOTES Irrigated left eye with 500 mL normal saline. Patient tolerated procedure well and reported relief post-procedure (PT stated his vision was more clear but pain did not go away.). --20:43 Troy Ritter 21:12 11/11/2016 Pepcid (Famotidine) PO 40 mg given. Allergies verified and confirmed 5 rights. --21:12 Stacy Monreal 21:12 11/11/2016 Decadron (Dexamethasone Sodium Phosphate) IM 6 mg given. Given in the right gluteus john. --21:12 Stacy Monreal 21:13 11/11/2016 Benadryl (DiphenhydrAMINE HCl) IM 50 mg given. Given in the left gluteus john. Allergies verified, confirmed 5 rights and sedative warning given to the patient. --21:13 Stacy Monreal DISPOSITION / DISCHARGE Departure time: 21:23. Condition at departure: improved. No learning barriers present. Reviewed warnings. Reviewed medication(s) side effects, precautions, dosing and course information. Prescription(s) given to the patient. Treatments reviewed. Reviewed referrals. Follow up contact number. Patient verbalized understanding. Written instructions provided in Cambodian. No diet instructions, activity restrictions or stop smoking instructions. No work note given or school note given. The patient was discharged by the nurse practitioner. He was discharged home. He left the Emergency Department ambulatory and via private vehicle. Patient driving. FALL RISK ASSESSMENT: Fall risk assessment completed. No fall risk identified. --21:23 Stacy Monreal 21:22 11/11/16. BP: deferred. HR: deferred. RR: deferred. O2 saturation: deferred. Temp: deferred. Pain level now: 0/10. --21:23 Stacy Monreal Locked/Released at 11/11/2016 21:23 by Stacy Monreal
--- NOTE | 2016-11-11 21:18 | ED CLINICAL REPORT ---
Clinical Report - Physicians/Mid Levels [facility] [address] [place] [address] 11/11/2016 20:24 Patient: SUDHA BRIGGS Time Seen: 20:48; initial patient contact, initial documentation, patient care assumed. Arrived- By private vehicle. Historian- patient. HISTORY OF PRESENT ILLNESS Chief Complaint: EYE PAIN and REDNESS. This started about 1 weeks ago, involves the left eye, is characterized as moderate in severity and has been constant and is still present. The patient may have sustained an injury. Not injured from contact lenses. Eye pain, discomfort, redness, irritation and discharge. Eye itching. Eyelid swelling. No photophobia, double vision, decreased vision or loss of vision. Blurred vision. 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 REVIEW OF SYSTEMS All systems otherwise negative, except as recorded above. PAST HISTORY See nurses notes. PROBLEMS: Dyspnea. Chest Pain. Renal Failure. Anxiety Reaction. Hyperlipidemia. Gastroesophageal Reflux. Environmental Allergies. Food Poisoning. Knee Injury. Pedal Edema. Coronary Artery Disease. Hypercholesterolemia. Dehydration. Hyperglycemia. Vomiting. Immunizations. Hypertension. Heart Disease. Diabetes Mellitus. --21:15 Stacy Monreal The following entry was modified by Stacy Monreal, 21:14 Anxiety Reaction. --00:31 Stacy Monreal. ADDITIONAL SURGERIES: Coronary Artery Bypass Graft. --21:15 Stacy Monreal SOCIAL HISTORY Never smoker. No alcohol use or drug use. FAMILY HISTORY No significant family medical history. ADDITIONAL NOTES The nursing notes have been reviewed with agreement regarding the chief complaint, HPI, ROS, PMH and patient medications and allergies. PHYSICAL EXAM Vital Signs: 11/11/2016 20:30 BP: 142/82. HR: 95. RR: 18. O2 saturation: 97%. Temp: 98.1 F. Pain level now: 5/10. Have been reviewed as normal and appear to be correct. Appearance: Alert. Oriented X3. No acute distress. HEENT: Nose normal. Head appears normal to external inspection. Rt Eye: Right eye exam normal. Eyes: Visual acuity noted- see nurse's notes. Left cornea examined with fluorescein stain. Eyelids appear abnormal to inspection. Conjunctivae and sclerae do not appear normal to inspection. Corneas do not appear normal to inspection. Pupils equal, round and reactive to light. Accommodation normal. Funduscopic exam normal. Visual juárez normal. EOMs intact. Periorbital areas appear normal to inspection. Anterior chambers clear. Anterior chambers of normal depth. Lt Eye: Left eye exam normal. Mild eyelid edema and erythema. Mild conjunctival edema. Other corneal abnormality (corneal swelling present, mild). No stye present. No foreign body under the eyelid. No injury to the eyelids. No corneal foreign body or abrasion or fluorescein dye uptake. Neck: Neck supple. Normal inspection. Respiratory: No respiratory distress. Skin: No rash. Extremities: Extremities negative. Neuro: Oriented X 3. Mood/affect normal. No motor deficit. No sensory deficit. PROGRESS AND PROCEDURES PROCEDURES (eye examined under black light using properacaine gtts and fluorscein strip, no fb, no abrasion, no ulcer, no dye uptake, pt tolerated procedure well without issues). Patient counseled in person regarding the patient's stable condition and diagnosis. Differential Diagnosis: Other possible considerations: corneal fb, ulcer, abrasion, allergic reaction, conjunctivitis. Above considerations are based on history and physical exam. Differential diagnosis was discussed with patient. Disposition: Discharged home in good and improved condition (21:17). Condition: good and stable. CLINICAL IMPRESSION Acute conjunctivitis of the left eye. INSTRUCTIONS Warnings: GENERAL WARNINGS: Return or contact your physician immediately if your condition worsens or changes unexpectedly, if not improving as expected, or if other problems arise. Specifically return if problem worsens. Prescription Medications: Patanol Ophthalmic Solution 0.1% : Instill 1-2 drops into affected eye 2 times daily 6 to 8 hours apart as needed for itching. Dispense five (5) mL. No refills. Substitution is permissible. Ivone 180 mg tablets: take 1 orally daily for 10 days. Dispense ten (10). No refills. Follow-up: Follow up with your doctor in about three days even if well. Call for an appointment. Summary of care provided to patient. Understanding of the discharge instructions verbalized by patient. (Electronically signed by Kamila Arreola A.R.N.P. 11/11/2016 22:02)
--- NOTE | 2016-11-11 21:18 | ED ORDER SUMMARY ---
..... Patient: SUDHA BRIGGS OrderSheet VisitID: [id number] [address] [place] [address] 51y, M Registration Date/Time: 11/11/2016 ORDER SHEET Weight: 163.2 kg Allergies: Claritin, Metoprolol Succinate GENERAL ORDERS: MEDICATION ORDERS: Benadryl IM 50 mg (NOW) (21:03 11/11/2016 HBivens A.R.N.P.) (21:13 TBowen R.N.) Decadron IM 6 mg (NOW) (21:04 11/11/2016 HBivens A.R.N.P.) (21:12 TBowen R.N.) Pepcid PO 40 mg (NOW) (21:04 11/11/2016 HBivens A.R.N.P.) (21:12 TBowen R.N.) IV FLUIDS: ORDER SHEET NOTES: [Electronically signed by Clau Chirinos R.N. (21:11/11/2016)] [Electronically signed by Kamila ArreolaR.N.PFallon (22:02 11/11/2016)] [Electronically locked/signed by Clau Chirinos R.N. (21:11/11/2016)]
--- NOTE | 2016-11-11 22:03 | ED MAR SUMMARY ---
..... Medication Administration Record [facility] [address] [place] [address] Patient: SUDHA BRIGGS Visit ID: [id number] 51y, M Weight: 163.2 kg Height/Length: 71 in BMI: 50.2 ALLERGIES: Claritin, Metoprolol Succinate Given 21:11/11/2016 Jocelin, R.N. Medication Administered: DECADRON [IM] (DEXAMETHASONE SODIUM PHOSPHATE), Dose: 6 mg IM. Medication Ordered: Decadron IM 6 mg (NOW). Given 21:11/11/2016 Jocelin, R.N. Medication Administered: PEPCID [PO] (FAMOTIDINE), Dose: 40 mg PO. Medication Ordered: Pepcid PO 40 mg (NOW). Given 21:11/11/2016 Jocelin, R.N. Medication Administered: BENADRYL [IM] (DIPHENHYDRAMINE HCL), Dose: 50 mg IM. Medication Ordered: Benadryl IM 50 mg (NOW).
--- NOTE | 2016-11-11 22:03 | ED DISCHARGE INSTRUCTIONS ---
Patient: SUDHA BRIGGS General Instructions [facility] VisitID: [id number] [place] [address] 51y, M Registration Date/Time: 11/11/2016 Acute conjunctivitis of the left eye. INSTRUCTIONS Warnings: GENERAL WARNINGS: Return or contact your physician immediately if your condition worsens or changes unexpectedly, if not improving as expected, or if other problems arise. Specifically return if problem worsens. Prescription Medications: Patanol Ophthalmic Solution 0.1% : Instill 1-2 drops into affected eye 2 times daily 6 to 8 hours apart as needed for itching. Dispense five (5) mL. No refills. Substitution is permissible. Ivone 180 mg tablets: take 1 orally daily for 10 days. Dispense ten (10). No refills. Follow-up: Follow up with your doctor in about three days even if well. Call for an appointment. Summary of care provided to patient. Understanding of the discharge instructions verbalized by patient. ADDITIONAL INFORMATION Conjunctivitis, Allergic Allergic Conjunctivitis is a reaction to dust or pollen in the air. This causes itching and redness in the membranes of the eyelids. There may be swelling of the lids, redness, and a gritty or scratchy feeling in the eye. Home Care: Eye drops may be prescribed to reduce itching and redness. Use these as directed. Otherwise, Visine, Vasocon or other rrgu-vms-[id number] decongestant eye drops may be used. Apply a cool compress (towel soaked in cool water) to the affected eye 3-4 times a day to reduce swelling and itching. It is common to have mucus drainage during the night causing the eyelids to become crusted by morning. Use a warm wet cloth to wipe this away. You may also use saline irrigating solution or artificial tears to rinse away mucus inside the eye. Do not patch the eye. You may use acetaminophen (Tylenol) or ibuprofen (Motrin, Advil) to control pain, unless another medicine was prescribed. [ NOTE: If you have chronic liver or kidney disease or ever had a stomach ulcer or GI bleeding, talk with your doctor before using these medicines.] Do not wear contact lenses until your eyes have healed and all symptoms are gone. Follow Up with your doctor or this facility as directed, or if there has not been improvement within five days. Get Prompt Medical Attention if any of the following occur: Increased swelling of the eyelid New or worsening drainage from the eye Increasing redness around the eye Facial swelling Fexofenadine Hydrochloride Oral tablet What is this medicine? FEXOFENADINE (fex oh FEN a sundar) is an antihistamine. This medicine is used to treat or prevent symptoms of allergies. It is also used to help reduce itchy skin rash and hives. How should I use this medicine? Take this medicine by mouth with a full glass of water. Follow the directions on the prescription label. You may take this medicine with food or on an empty stomach. Take your medicine at regular intervals. Do not take it more often than directed. You may need to take this medicine for several days before your symptoms improve. Talk to your wind turbine service technician regarding the use of this medicine in children. While this drug may be prescribed for children as young as 6 years old for selected conditions, precautions do apply. What side effects may I notice from receiving this medicine? Side effects that you should report to your doctor or health life care planner as soon as possible: allergic reactions like skin rash, itching or hives, swelling of the face, lips, or tongue breathing problems chest pain fast heartbeat infection or fever Side effects that usually do not require medical attention (report to your doctor or health life care planner if they continue or are bothersome): cough drowsiness dry or irritated nose, mouth, or throat headache menstrual changes pain stomach upset, nausea What may interact with this medicine? antacids erythromycin grapefruit, apple, or orange juice ketoconazole magnesium-containing products What if I miss a dose? If you miss a dose, take it as soon as you can. If it is almost time for your next dose, take only that dose. Do not take double or extra doses. Where should I keep my medicine? Keep out of the reach of children. Store at room temperature between 20 and 25 degrees C (68 and 77degrees F). Protect from moisture. Throw away any unused medicine after the expiration date. What should I tell my health care provider before I take this medicine? They need to know if you have any of these conditions: kidney disease an unusual or allergic reaction to fexofenadine, terfenadine, other medicines, foods, dyes, or preservatives or trying to get breast-feeding What should I watch for while using this medicine? Visit your doctor or health life care planner for regular checks on your health. Tell your doctor or healthcare professional if your symptoms do not start to get better or if they get worse. You have been given the following additional information: Conjunctivitis, Allergic Fexofenadine Hydrochloride Oral tablet (Electronically signed by Kamila Arreola A.R.N.P. 11/11/2016 22:02)
--- NOTE | 2016-11-11 22:03 | ED MED RECONCILIATION SUMMARY ---
Patient: SUDHA BRIGGS Medication Reconciliation Report [facility] VisitID: [id number] [place] [address] 51y, M Registration Date/Time: 11/11/2016 Weight: 163.2 kg Height/Length: 71 in. BMI: 50.2 ALLERGIES: Claritin, Metoprolol Succinate The patient's Home Medications are listed below: THE FOLLOWING MEDICATIONS NEED TO BE RECONCILED: Albuterol Sulfate HFA Inhalation (108 (90 Base) mcg/act) 2 puffs, 4x a day Amitriptyline HCl Oral (10 mg), at bedtime AmLODIPine Besylate Oral (10 mg), daily Aspirin Low Dose Oral (81 mg) 1 tablet, daily Atorvastatin Calcium Oral (80 mg) 1 tablet, daily Augmentin Oral (875-125 mg) 1 tablet, 2x a day Benzonatate Oral (200 mg) 1 capsule, 3x a day Carvedilol Phosphate ER Oral Cefdinir Oral (300 mg) 1 capsule, 2x a day DULoxetine HCl Oral (30 mg) 2 capsules Flonase Nasal (50 mcg/act) 2 sprays, daily Gabapentin Oral 1200 mg, 3x a day HumaLOG Subcutaneous (100 unit/mL) 20-30 units , before meals Lantus Subcutaneous (100 unit/mL) 60 units, 2x a day Lisinopril Oral 10 mg, 2x a day Nitroglycerin Sublingual (0.4 mg) [facility] 3 Oral ProAir HFA Inhalation (108 (90 Base) mcg/act) Ranitidine HCl Oral 150 mg, 2x a day Tramadol HCL Oral, 3x a day Uloric Oral (80 mg), daily Vitamin B-12 Oral ZyrTEC Allergy Oral (10 mg) 1 tablet, daily The source(s) of the original Home Medication information: Not obtained. The following Medications were given to the patient in the Emergency Department: Pepcid [PO] PO 40 mg, administered: 11/11/2016 9:12:00 PM Decadron [IM] IM 6 mg, administered: 11/11/2016 9:12:00 PM Benadryl [IM] IM 50 mg, administered: 11/11/2016 9:13:00 PM The following Medications were prescribed to the patient: Patanol Ophthalmic Solution 0.1% : Instill 1-2 drops into affected eye 2 times daily 6 to 8 hours apart as needed for itching. Dispense five (5) mL. No refills. Substitution is permissible. -- Kamila Arreola A.R.N.PFallon Ivone 180 mg tablets: take 1 orally daily for 10 days. Dispense ten (10). No refills. -- Kamila Arreola A.R.N.P.
--- NOTE | 2016-11-11 22:03 | ED MED RECONCILIATION SUMMARY ---
Patient: SUDHA BRIGGS Medication Reconciliation Report [facility] VisitID: [id number] [place] [address] 51y, M Registration Date/Time: 11/11/2016 Weight: 163.2 kg Height/Length: 71 in. BMI: 50.2 ALLERGIES: Claritin, Metoprolol Succinate The patient's Home Medications are listed below: THE FOLLOWING MEDICATIONS NEED TO BE RECONCILED: Albuterol Sulfate HFA Inhalation (108 (90 Base) mcg/act) 2 puffs, 4x a day Amitriptyline HCl Oral (10 mg), at bedtime AmLODIPine Besylate Oral (10 mg), daily Aspirin Low Dose Oral (81 mg) 1 tablet, daily Atorvastatin Calcium Oral (80 mg) 1 tablet, daily Augmentin Oral (875-125 mg) 1 tablet, 2x a day Benzonatate Oral (200 mg) 1 capsule, 3x a day Carvedilol Phosphate ER Oral Cefdinir Oral (300 mg) 1 capsule, 2x a day DULoxetine HCl Oral (30 mg) 2 capsules Flonase Nasal (50 mcg/act) 2 sprays, daily Gabapentin Oral 1200 mg, 3x a day HumaLOG Subcutaneous (100 unit/mL) 20-30 units , before meals Lantus Subcutaneous (100 unit/mL) 60 units, 2x a day Lisinopril Oral 10 mg, 2x a day Nitroglycerin Sublingual (0.4 mg) [facility] 3 Oral ProAir HFA Inhalation (108 (90 Base) mcg/act) Ranitidine HCl Oral 150 mg, 2x a day Tramadol HCL Oral, 3x a day Uloric Oral (80 mg), daily Vitamin B-12 Oral ZyrTEC Allergy Oral (10 mg) 1 tablet, daily The source(s) of the original Home Medication information: Not obtained. The following Medications were given to the patient in the Emergency Department: Pepcid [PO] PO 40 mg, administered: 11/11/2016 9:12:00 PM Decadron [IM] IM 6 mg, administered: 11/11/2016 9:12:00 PM Benadryl [IM] IM 50 mg, administered: 11/11/2016 9:13:00 PM The following Medications were prescribed to the patient: Patanol Ophthalmic Solution 0.1% : Instill 1-2 drops into affected eye 2 times daily 6 to 8 hours apart as needed for itching. Dispense five (5) mL. No refills. Substitution is permissible. -- Kamila Arreola A.R.N.PFallon Ivone 180 mg tablets: take 1 orally daily for 10 days. Dispense ten (10). No refills. -- Kamila Arreola A.R.N.P.
--- NOTE | 2016-11-11 22:03 | ED MAR SUMMARY ---
..... Medication Administration Record [facility] [address] [place] [address] Patient: SUDHA BRIGGS Visit ID: [id number] 51y, M Weight: 163.2 kg Height/Length: 71 in BMI: 50.2 ALLERGIES: Claritin, Metoprolol Succinate Given 21:11/11/2016 Jocelin, R.N. Medication Administered: DECADRON [IM] (DEXAMETHASONE SODIUM PHOSPHATE), Dose: 6 mg IM. Medication Ordered: Decadron IM 6 mg (NOW). Given 21:11/11/2016 Jocelin, R.N. Medication Administered: PEPCID [PO] (FAMOTIDINE), Dose: 40 mg PO. Medication Ordered: Pepcid PO 40 mg (NOW). Given 21:11/11/2016 Jocelin, R.N. Medication Administered: BENADRYL [IM] (DIPHENHYDRAMINE HCL), Dose: 50 mg IM. Medication Ordered: Benadryl IM 50 mg (NOW).
--- NOTE | 2016-11-11 22:03 | ED DISCHARGE INSTRUCTIONS ---
Patient: SUDHA BRIGGS General Instructions [facility] VisitID: [id number] [place] [address] 51y, M Registration Date/Time: 11/11/2016 Acute conjunctivitis of the left eye. INSTRUCTIONS Warnings: GENERAL WARNINGS: Return or contact your physician immediately if your condition worsens or changes unexpectedly, if not improving as expected, or if other problems arise. Specifically return if problem worsens. Prescription Medications: Patanol Ophthalmic Solution 0.1% : Instill 1-2 drops into affected eye 2 times daily 6 to 8 hours apart as needed for itching. Dispense five (5) mL. No refills. Substitution is permissible. Ivone 180 mg tablets: take 1 orally daily for 10 days. Dispense ten (10). No refills. Follow-up: Follow up with your doctor in about three days even if well. Call for an appointment. Summary of care provided to patient. Understanding of the discharge instructions verbalized by patient. ADDITIONAL INFORMATION Conjunctivitis, Allergic Allergic Conjunctivitis is a reaction to dust or pollen in the air. This causes itching and redness in the membranes of the eyelids. There may be swelling of the lids, redness, and a gritty or scratchy feeling in the eye. Home Care: Eye drops may be prescribed to reduce itching and redness. Use these as directed. Otherwise, Visine, Vasocon or other kodx-iza-bwjtixs decongestant eye drops may be used. Apply a cool compress (towel soaked in cool water) to the affected eye 3-4 times a day to reduce swelling and itching. It is common to have mucus drainage during the night causing the eyelids to become crusted by morning. Use a warm wet cloth to wipe this away. You may also use saline irrigating solution or artificial tears to rinse away mucus inside the eye. Do not patch the eye. You may use acetaminophen (Tylenol) or ibuprofen (Motrin, Advil) to control pain, unless another medicine was prescribed. [ NOTE: If you have chronic liver or kidney disease or ever had a stomach ulcer or GI bleeding, talk with your doctor before using these medicines.] Do not wear contact lenses until your eyes have healed and all symptoms are gone. Follow Up with your doctor or this facility as directed, or if there has not been improvement within five days. Get Prompt Medical Attention if any of the following occur: Increased swelling of the eyelid New or worsening drainage from the eye Increasing redness around the eye Facial swelling Fexofenadine Hydrochloride Oral tablet What is this medicine? FEXOFENADINE (fex oh FEN a sundar) is an antihistamine. This medicine is used to treat or prevent symptoms of allergies. It is also used to help reduce itchy skin rash and hives. How should I use this medicine? Take this medicine by mouth with a full glass of water. Follow the directions on the prescription label. You may take this medicine with food or on an empty stomach. Take your medicine at regular intervals. Do not take it more often than directed. You may need to take this medicine for several days before your symptoms improve. Talk to your senior administrative services officer regarding the use of this medicine in children. While this drug may be prescribed for children as young as 6 years old for selected conditions, precautions do apply. What side effects may I notice from receiving this medicine? Side effects that you should report to your doctor or health care professionals as soon as possible: allergic reactions like skin rash, itching or hives, swelling of the face, lips, or tongue breathing problems chest pain fast heartbeat infection or fever Side effects that usually do not require medical attention (report to your doctor or health care professionals if they continue or are bothersome): cough drowsiness dry or irritated nose, mouth, or throat headache menstrual changes pain stomach upset, nausea What may interact with this medicine? antacids erythromycin grapefruit, apple, or orange juice ketoconazole magnesium-containing products What if I miss a dose? If you miss a dose, take it as soon as you can. If it is almost time for your next dose, take only that dose. Do not take double or extra doses. Where should I keep my medicine? Keep out of the reach of children. Store at room temperature between 20 and 25 degrees C (68 and 77degrees F). Protect from moisture. Throw away any unused medicine after the expiration date. What should I tell my health care provider before I take this medicine? They need to know if you have any of these conditions: kidney disease an unusual or allergic reaction to fexofenadine, terfenadine, other medicines, foods, dyes, or preservatives or trying to get breast-feeding What should I watch for while using this medicine? Visit your doctor or health care professionals for regular checks on your health. Tell your doctor or healthcare professional if your symptoms do not start to get better or if they get worse. You have been given the following additional information: Conjunctivitis, Allergic Fexofenadine Hydrochloride Oral tablet (Electronically signed by Kamila Arreola A.R.N.P. 11/11/2016 22:02)
== END 2016-11-11 21:20 | disposition home or self-care (01) ==
LOC: ED SRH 20:25
DX: H10.32 Unspecified acute conjunctivitis, left eye (principal); Z88.8 Allergy status to other drugs, medicaments and biological substances; E11.9 Type 2 diabetes mellitus without complications; I25.10 Atherosclerotic heart disease of native coronary artery without angina pectoris; Z79.899 Other long term (current) drug therapy; Z79.82 Long term (current) use of aspirin; Z79.4 Long term (current) use of insulin

== ENCOUNTER 2016-11-18 17:53 | Inpatient (IN) | payer OTHER ==
[~2016-11-18] VITALS: Ht 180.3 cm; Wt 172.7 kg
--- NOTE | 2016-11-18 19:11 | DIAGNOSTIC IMAGING REPORT ---
PROCEDURE: CT HEAD WITHOUT CONTRAST INDICATION: Recent treatment for sinusitis. Worsening severe headache. TECHNIQUE: Noncontrast axial images with sagittal and coronal reformations. COMPARISON: Compared to a head CT and CT of the sinuses on 09/07/2016. FINDINGS: Allowing for mild motion, brain and ventricles are normal. No evidence of an acute process or hemorrhage. There is marked worsening in severe left sinusitis which has extended from the anterior ethmoid air cells and maxillary sinus, into the posterior ethmoid air cells and the entire left sphenoid and frontal sinuses. Findings are associated with expansile changes of the left ethmoid air cells. There has been marked improvement and resolution of right maxillary and ethmoid sinus mucosal thickening. The rest of the right sinuses are clear. Mastoids appear normal. IMPRESSION: 1. Normal brain and ventricles. No evidence of intracranial abnormality. 2. Marked worsening in severe left sinusitis with opacification of the entire left sinuses. These findings are associated with development of expansile changes of the ethmoid air cells (suggests the possibility of fungal sinusitis). 3. Marked improvement in right sided sinusitis. 4. Findings discussed with NEERU Jennings (1840 hours), and Dr. Kristin Webb (19[address] All [address] scans at this facility use dose modulation, iterative reconstruction, and/or weight-based dosing when appropriate to reduce radiation dose to as low as reasonably achievable.
--- NOTE | 2016-11-18 19:51 | ED CLINICAL REPORT ---
Clinical Report - Physicians/Mid Levels [facility] [address] [place] [address] 11/18/2016 17:53 [id number] Time Seen: 17:59; initial patient contact, initial documentation, patient care assumed. Arrived- By private vehicle. Historian- patient. HISTORY OF PRESENT ILLNESS Chief Complaint: COUGH and FEVER. This started about 4 months ago and is still present and worsening. The illness is described as severe. The patient has had sputum production, a cough, a sore throat, nasal congestion and sinus pressure. He has had sinus drainage, fever, a nasal discharge and ear pain. No difficulty breathing, chest discomfort, muscle aches or chills. Additional history - No known contact with a sick individual. No recent travel. Similar symptoms previously: Milder. Recent medical care: The patient was seen recently in the office. ( has been seeing his dr several times for sinus issues since Aug, tried different abx, augmentin, cephlasporin, went to dr this past week for sinus again, placed on abx, and has pending appt this week with ent for possible sinus surgery, headache came on earlier today and sinuses feel worse). REVIEW OF SYSTEMS The patient has had a severe, pressure-like frontal and facial headache. He has had nausea. No vomiting or diarrhea. All systems otherwise negative, except as recorded above. PAST HISTORY See nurses notes. PROBLEMS: Conjunctivitis. Dyspnea. Chest Pain. Renal Failure. Anxiety Reaction. Hyperlipidemia. Gastroesophageal Reflux. Environmental Allergies. Food Poisoning. Rib Fracture. Knee Injury. Pedal Edema. Coronary Artery Disease. Hypercholesterolemia. Dehydration. Hyperglycemia. Vomiting. Immunizations. Hypertension. Heart Disease. Diabetes Mellitus. --18:12 Marek Hopper RJannette. ADDITIONAL SURGERIES: Coronary Artery Bypass Graft. --18:13 Marek Hopper R.N. SOCIAL HISTORY Never smoker. Not exposed to second-hand smoke at home. No alcohol use or drug use. No recent travel. Is a local resident. FAMILY HISTORY Negative. ADDITIONAL NOTES The nursing notes have been reviewed with agreement regarding the chief complaint, HPI, ROS, PMH and patient medications and allergies. PHYSICAL EXAM Vital Signs: 11/18/2016 18:02 BP: 160/94. HR: 88. RR: 18. O2 saturation: 95%. Temp: 98.3 F. Pain level now: 05/23. Have been reviewed as abnormal and appear to be correct. Hypertensive. Heart rate normal. Respiratory rate normal. Temperature normal. Oxygen saturation normal. Appearance: Alert. No acute distress. Head: Tenderness present to percussion/palpation of the sinuses: severe right and left frontal tenderness, ethmoid tenderness. No tenderness over the maxillary sinuses. Eyes: Pupils equal, round and reactive to light. Eyes normal inspection. ENT: Ears normal. Nose abnormal. Pharynx normal. Uvula midline. Neck: Normal inspection. Neck supple. CVS: Normal heart rate and rhythm. Heart sounds normal. Pulses normal. Respiratory: No respiratory distress. Breath sounds normal. Abdomen: Severely obese. Back: Normal inspection. Skin: Skin warm and dry. Normal skin color. No rash. Normal skin turgor. Extremities: Extremities exhibit normal ROM. No lower extremity edema. Neuro: Oriented X 3. No motor deficit. No sensory deficit. LABS, X-RAYS, AND EKG CT Head: . (IMPRESSION: 1. Normal brain and ventricles. No evidence of intracranial abnormality. 2. Marked worsening in severe left sinusitis with opacification of the entire left sinuses. These findings are associated with development of expansile changes of the ethmoid air cells (suggests the possibility of fungal sinusitis). 3. Marked improvement in right sided sinusitis. 4. Findings discussed with NEERU Jennings (1840 hours), and Dr. Kristin Webb (19[address] scans at this facility use dose modulation, iterative reconstruction, and/or weight-based dosing when appropriate to reduce radiation dose to as low as reasonably achievable. Electronically Final signed by:Kaiden Murphy MD 11/18/2016 7:07:15 PM). The study was interpreted by the radiologist and discussed with the radiologist. Interpretation time: 19:32. Laboratory Tests: CBC w Diff: (KWABENA: 11/18/2016 18:15) ( MsgRcvd 11/18/2016 18:33) Final results Test Result Flag Units (Reference) WHITE BLOOD COUNT 16.3 H K/uL (4.5-11.5) RED BLOOD COUNT 4.85 M/uL (4.50-5.90) HEMOGLOBIN 13.5 gm/dL (13.5-17.5) HEMATOCRIT 41.9 % (41.0-53.0) MEAN CELL VOLUME 86 fL (80-100) MEAN CORPUSCULAR HGB 28 pg (26-34) MEAN CORPUSCULAR HGB CONC 32 g/dL (31-37) RED CELL DISTRIBUTION WIDTH 15.4 H % (11.6-14.8) PLATELET COUNT 337 K/uL (150-400) NEUTROPHIL % 82.8 H % (50-75) LYMPH % 6.5 L % (25-40) MONO % 9.2 % (3-14) EOSINOPHIL % 1.2 % (0-4) BASOPHIL % 0.3 % (0-2) CMP: (KWABENA: 11/18/2016 18:15) ( MsgRcvd 11/18/2016 18:42) Final results Test Result Flag Units (Reference) GLUCOSE 131 H mg/dL (70-110) BUN 25 H mg/dL (7-18) CREATININE 1.7 H mg/dL (0.6-1.3) Estimated GFR 45.39 mL/min Estimated GFR- 55.01 mL/min Note: Persistent reduction over 3 months in eGFR<60 mL/min/1.73 m2 defines CKD. Patients with eGFR values>=60 mL/min/1.73 m2 may also have CKD if evidence ofpersistent proteinuria. Additional information may be foundat www.kidney.org. SODIUM 138 mmol/L (136-145) POTASSIUM 4.5 mmol/L (3.5-5.1) CHLORIDE 102 mmol/L (98-107) CARBON DIOXIDE 25 mmol/L (21-32) CALCIUM 9.5 mg/dL (8.5-10.1) TOTAL PROTEIN 8.0 g/dL (6.4-8.2) ALBUMIN 3.2 L g/dL (3.3-5.0) BILIRUBIN, TOTAL 0.6 mg/dL (0.0-1.0) ALKALINE PHOSPHATASE 128 H U/L (46-116) AST (SGOT) 20 U/L (15-37) ALT (SGPT) 25 U/L (12-78) . PROGRESS AND PROCEDURES Course of Care: 18:23 11/18/16. pt has [facility] for controlled meds, and #6 er visits, last rx tramadol #90 on 11/15, see report for full details Dr Murphy calling multiple times, first for head ct results, then to discuss ct again, then to find out if pt was diabetic, and then to find out what I was doing with pt 20:27 11/18/16. Dr Hearn at bedside. 11/18/2016 20:06 BP: 135/70. HR: 92. RR: 22. O2 saturation: 97%. Vital Signs: have been reviewed as normal and appear to be correct. Discussed case with on-call health care provider, (call returned 1947 Dr Hearn). Agreed upon treatment plan and decision to admit. Patient counseled in person regarding the patient's stable condition, test results, diagnosis and need for admission. Differential Diagnosis: I considered subarachnoid hemorrhage, intracranial bleed, vascular malformation, cerebral aneurysm, vascular dissection, temporal arteritis, infectious etiology, analgesic abuse and hypoglycemia as a possible cause of headache in this patient. This is a partial list of diagnoses considered. Disposition: Admitted to Acute Care. 19:51. Condition: good and stable. CLINICAL IMPRESSION Chronic ethmoidal and frontal sinusitis. (Electronically signed by Kamila Arreola A.R.N.P. 11/18/2016 23:07)
--- NOTE | 2016-11-18 19:51 | ED ORDER SUMMARY ---
..... Patient: SUDHA BRIGGS OrderSheet [facility] VisitID: [id number] [place] [address] 51y, M Registration Date/Time: 11/18/2016 ORDER SHEET Weight: 171.0 kg (measured) Allergies: Claritin, Metoprolol Succinate GENERAL ORDERS: CT Head wo Cont Urgent (18:22 11/18/2016 HBivens A.R.N.P.) (Ack 18:26 Julio) (18:53 MCampbell) CBC w Diff Urgent (18:22 11/18/2016 HBivens A.R.N.P.) (18:23 JSimbeck R.N.) CMP Urgent (18:22 11/18/2016 HBivens A.R.N.P.) (18:23 JSimbeck R.N.) MEDICATION ORDERS: Unasyn IV 3 gm/100mL (NOW) (19:51 11/18/2016 HBivens A.R.N.P.) (Ack 20:05 EInderbitzen R.N.) (20:19 EInderbitzen R.N.) IV FLUIDS: IV NS : initial bolus 1000 mL (1000 mL/hr), then none - (NOW) (18:21 11/18/2016 HBivens A.R.N.P.) (Ack 19:11 EInderbitzen R.N.) (19:19 EInderbitzen R.N.) Toradol IV 30 mg (NOW) (18:21 11/18/2016 HBivens A.R.N.P.) (Ack 19:11 EInderbitzen R.N.) (19:19 EInderbitzen R.N.) Reglan IV 10 mg (NOW) (18:21 11/18/2016 HBivens A.R.N.P.) (Ack 19:11 EInderbitzen R.N.) (19:21 EInderbitzen R.N.) Benadryl IV 25 mg (NOW) (18:22 11/18/2016 HBivens A.R.N.P.) (Ack 19:12 EInderbitzen R.N.) (19:19 Tanesha R.N.) IV Saline Lock (18:22 11/18/2016 Danuta Lee.R.N.P.) (18:23 Nurys Guerrero.NFallon) ORDER SHEET NOTES: [Electronically signed by Annabelle Read R.N. (21:57 11/18/2016)] [Electronically signed by Kamila ArreolaNFallonPFallon (23:07 11/18/2016)] [Electronically locked/signed by Annabelle Read R.N. (21:57 11/18/2016)]
--- NOTE | 2016-11-18 19:51 | ED NURSING NOTES ---
Clinical Report - Nurses [facility] [address] [place] [address] 11/18/2016 17:53 [id number] Triage time 18:00 Nov 18 2016. Acuity: LEVEL 3. Chief Complaint: MIGRAINE HEADACHE. Alert. JUSTINO COMA SCORE: Justino Coma Scale: 15- eyes open spontaneously (4); best verbal response- oriented x 4 (5); best motor response- obeys commands (6). --18:10 Marek Hopper R.N. 18:02 11/18/16. BP: 160/94. HR: 88. RR: 18. O2 saturation: 95%. Temp: 98.3 F. Pain level now: 05/23. Additional comments: IRWIN. --18:10 Marek Hopper R.N. Acuity: LEVEL 3. Alert. JUSTINO COMA SCORE: Lovilia Coma Scale: 15- eyes open spontaneously (4); best verbal response- oriented x 4 (5); best motor response- obeys commands (6). --18:14 Marek Hopper R.N. Weight: 171 kg measured. Height/Length: 71 inches Per Patient. BMI: 52.6. --18:04 Marek Hopper R.N. Medications Albuterol Sulfate HFA Inhalation (Aerosol Solution 108 (90 Base) mcg/act) 2 puffs, 4x a day as needed. Amitriptyline HCl Oral (Tablet 10 mg), at bedtime. AmLODIPine Besylate Oral (Tablet 10 mg), daily. Aspirin Low Dose Oral (Tablet Chewable 81 mg) 1 tablet, daily. Atorvastatin Calcium Oral (Tablet 80 mg) 1 tablet, daily. Augmentin Oral (Tablet 875-125 mg) 1 tablet, 2x a day. Benzonatate Oral (Capsule 200 mg) 1 capsule, 3x a day as needed. Carvedilol Phosphate ER Oral. Cefdinir Oral (Capsule 300 mg) 1 capsule, 2x a day. DULoxetine HCl Oral (Capsule Delayed Release Particles 30 mg) 2 capsules. Flonase Nasal (Suspension 50 mcg/act) 2 sprays, daily. Gabapentin Oral 1200 mg, 3x a day. HumaLOG Subcutaneous (Solution 100 unit/mL) 20-30 units , before meals. Lantus Subcutaneous (Solution 100 unit/mL) 60 units, 2x a day. Lisinopril Oral 10 mg, 2x a day. Nitroglycerin Sublingual (Tablet Sublingual 0.4 mg), as needed. [place] 3 Oral. ProAir HFA Inhalation (Aerosol Solution 108 (90 Base) mcg/act), as needed. Ranitidine HCl Oral 150 mg, 2x a day. Tramadol HCL Oral, 3x a day. Uloric Oral (Tablet 80 mg), daily. Vitamin B-12 Oral. ZyrTEC Allergy Oral (Tablet 10 mg) 1 tablet, daily. --18:09 Marek Hopper R.N. Allergies Claritin. Definite Moderate(itching) (eyes get watery) Metoprolol Succinate. --18:09 Marek Hopper R.N. History Arrived by private vehicle. Historian: patient. Unaccompanied. Primary physician (Adriana Nance). ( Migraine Headache. Pt states that the irwin started in the back of the head and migrated foward and he now thinks that it involves the sinuses.). This started today about 10. Patient was last known well (about 10 hours ago). 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 (Ibuprofen, but he vomited them). --18:10 Marek Hopper R.N. PROBLEMS: Conjunctivitis. Dyspnea. Chest Pain. Renal Failure. Anxiety Reaction. Hyperlipidemia. Gastroesophageal Reflux. Environmental Allergies. Food Poisoning. Rib Fracture. Knee Injury. Pedal Edema. Coronary Artery Disease. Hypercholesterolemia. Dehydration. Hyperglycemia. Vomiting. Immunizations. Hypertension. Heart Disease. Diabetes Mellitus. --18:12 Marek Hopper R.N. ADDITIONAL SURGERIES: Coronary Artery Bypass Graft. --18:13 Marek Hopper R.N. Interventions ID band on patient. To treatment room. --18:10 Marek Hopper R.N. ID band on patient. To treatment room. --18:14 Marek Hopper R.N. PHYSICAL ASSESSMENT Ambulatory to room. GENERAL / NEURO / PSYCH: Alert. Oriented X 4. Speech within normal limits. HEENT: No facial asymmetry noted. Pupils equal, round and reactive to light. RESPIRATORY: Respirations not labored. CVS: Capillary refill less than 2 seconds. GI / : The patient has had nausea. Emesis noted. Has vomited numerous times (dry heaves). Abdomen soft. SKIN: Skin is warm and dry. --18:15 Marek Hopper R.N. NURSING PROGRESS NOTES Patient gowned. Reassurance given. Lights dimmed. Patient identifiers checked. Call light placed in reach. Side rails up. Bed placed in lowest position. Brakes of bed on. Patient ready for evaluation- chart flagged and ED physician notified. --18:15 Marek Hopper R.N. 18:15 11/18/2016 Site #1 started via IV in the right wrist with an 20g angiocath; one attempt. Blood drawn. Labeled in the presence of the patient and sent to the lab. Saline lock flushed with 10 mL saline. --18:23 Adriano Arrington R.N. 19:16 11/18/2016 Started bag #1 1000 mL IV Fluids IV NS (Saline); at 1000 mL/hr over 1 hour(s) via site #1 via IV pump. Allergies verified and confirmed 5 rights. IV patency established. IV site checked: no pain, redness, or swelling. IV flushed thoroughly pre- and post-medication administration. --19:19 Annabelle Read R.N. 19:17 11/18/2016 Toradol IVP 30 mg given over 1 minute(s) via site #1. Allergies verified and confirmed 5 rights. IV patency established. IV site checked: no pain, redness, or swelling. IV flushed thoroughly pre- and post-medication administration. IVP given by RN. --19:19 Annabelle Read R.N. 19:19 11/18/2016 Benadryl (DiphenhydrAMINE HCl) IVP 25 mg given over 1 minute(s) via site #1. Allergies verified, confirmed 5 rights and sedative warning given to the patient. IV patency established. IV site checked: no pain, redness, or swelling. IV flushed thoroughly pre- and post-medication administration. IVP given by RN. --19:19 Annabelle Read R.N. 19:20 11/18/2016 Reglan (Metoclopramide HCl) IVP 10 mg given over 5 minute(s) via site #1. Allergies verified and confirmed 5 rights. IV patency established. IV site checked: no pain, redness, or swelling. IV flushed thoroughly pre- and post-medication administration. IVP given by RN. --19:21 Annabelle Read R.N. 19:24 11/18/16. BP: 123/71. HR: 88. RR: 24. O2 saturation: 90%. Pain level now 03/23. --19:24 Annabelle Read R.N. 19:24 11/18/16. Oxygen administered by nasal cannula at 2 liters (applied). --19:24 Annabelle Read R.N. 20:06 11/18/16. BP: 135/70. HR: 92. RR: 22. O2 saturation: 97%. Pain level now 10. --20:06 Annabelle Read R.N. 20:06 11/18/2016 IV Fluids IV NS Discontinued: bag #1 completed. Total amount infused: 1000 mL. IV patency established. IV site checked: no pain, redness, or swelling. IV flushed thoroughly. --20:06 Annabelle Read R.N. 20:06 11/18/16. ( To be admitted). --20:06 Annabelle Read R.N. 20:18 11/18/2016 Started 3 gm of Unasyn (Ampicillin-Sulbactam Sodium) IVPB in bag #1 100 mL; at 100 mL/hr over 1 hour(s) via site #1 via IV pump. Allergies verified and confirmed 5 rights. IV patency established. IV site checked: no pain, redness, or swelling. IV flushed thoroughly pre- and post-medication administration. --20:19 Annabelle Read R.N. 21:18 11/18/2016 Unasyn IVPB Discontinued: bag #1 completed. Total amount infused: 100 mL. IV patency established. IV site checked: no pain, redness, or swelling. IV flushed thoroughly. --21:26 Annabelle Read R.N. 21:48 11/18/16. ( called for transport). --21:48 Annabelle Read R.N. DISPOSITION / DISCHARGE 21:47 11/18/2016 Site #[address] upon admission; patent. Good blood return present. --21:47 Annabelle Read R.N. 21:48 11/18/16. Condition at departure: improved and stable. The goals identified in the patient's plan of care were met. Admitted to Acute Care (203A). Report was given to a nurse via a phone call. Report included patient's care, treatment, medications, reviewed medication reconcilliation, and condition (including any recent changes or anticipated changes). All questions were answered. ([address]). Bed requested. Patient's personal items; items were placed in belongings bag. --21:48 Annabelle Raed R.N. 21:29 11/18/16. BP: 103/96. HR: 90. RR: 22. O2 saturation: 96%. Temp: 98.5 F. Pain level now: 09/23. 20:05 11/18/16. BP: 135/70. HR: 92. RR: 22. O2 saturation: 97%. Pain level now 11/21. 19:23 11/18/16. BP: 123/71. HR: 88. RR: 24. O2 saturation: 90%. Pain level now 03/23. 18:02 11/18/16. BP: 160/94. HR: 88. RR: 18. O2 saturation: 95%. Temp: 98.3 F. Pain level now: 05/23. Additional comments: IRWIN. --21:48 Annabelle Read R.N. Locked/Released at 11/18/2016 21:57 by Annabelle Read R.N.
--- NOTE | 2016-11-18 19:51 | ED ORDER SUMMARY ---
..... Patient: SUDHA BRIGGS OrderSheet [facility] VisitID: [id number] [place] [address] 51y, M Registration Date/Time: 11/18/2016 ORDER SHEET Weight: 171.0 kg (measured) Allergies: Claritin, Metoprolol Succinate GENERAL ORDERS: CT Head wo Cont Urgent (18:22 11/18/2016 HBivens A.R.N.P.) (Ack 18:26 Julio) (18:53 MCampbell) CBC w Diff Urgent (18:22 11/18/2016 HBivens A.R.N.P.) (18:23 JSimbeck R.N.) CMP Urgent (18:22 11/18/2016 HBivens A.R.N.P.) (18:23 JSimbeck R.N.) MEDICATION ORDERS: Unasyn IV 3 gm/100mL (NOW) (19:51 11/18/2016 HBivens A.R.N.P.) (Ack 20:05 EInderbitzen R.N.) (20:19 EInderbitzen R.N.) IV FLUIDS: IV NS : initial bolus 1000 mL (1000 mL/hr), then none - (NOW) (18:21 11/18/2016 HBivens A.R.N.P.) (Ack 19:11 EInderbitzen R.N.) (19:19 EInderbitzen R.N.) Toradol IV 30 mg (NOW) (18:21 11/18/2016 HBivens A.R.N.P.) (Ack 19:11 EInderbitzen R.N.) (19:19 EInderbitzen R.N.) Reglan IV 10 mg (NOW) (18:21 11/18/2016 HBivens A.R.N.P.) (Ack 19:11 EInderbitzen R.N.) (19:21 EInderbitzen R.N.) Benadryl IV 25 mg (NOW) (18:22 11/18/2016 HBivens A.R.N.P.) (Ack 19:12 EInderbitzen R.N.) (19:19 Tanesha R.N.) IV Saline Lock (18:22 11/18/2016 Danuta Lee.R.N.P.) (18:23 Nurys Guerrero.NFallon) ORDER SHEET NOTES: [Electronically signed by Annabelle Read R.N. (21:57 11/18/2016)] [Electronically signed by Kamila ArreolaNFallonPFallon (23:07 11/18/2016)] [Electronically locked/signed by Annabelle Read R.N. (21:57 11/18/2016)]
--- NOTE | 2016-11-18 21:20 | Progress Note ---
Subjective General Admission History and Physical Examination Patient Name: Romain Beltran Admission Date: November 18, 2016 Primary Care Provider: Tayler SIDDIQI Attending Physician: Dallin Hearn M.D. Admitting Physician: Dallin Hearn M.D. Code Status: Full Code Room: 203-A SUBJECTIVE Historian: Patient Reliability: Good Chief Complaint: Sinusitis, headache History of Present Illness: The patient is a 51-year-old single white male with a significant past mental history of diabetes mellitus, hypertension, coronary disease status post CABG, who presented to [facility] emergency department on the day of admission secondary to complaints of sinusitis, facial pain. [facility] ER evaluation was consistent with severe left sided sinusitis. Secondary to the above the patient was admitted I will sonal Hearn M.D. for further evaluation treatment. The patient has a long-standing history of recurrent sinus infections. He has recently been treated over the past several weeks with Augmentin. He would have improved symptoms with each treatment course only to have his symptoms recur. He has experienced facial pain, headache, nasal congestion, rhinorrhea-bloody/ purulent. He developed severe pain over the right frontal sinus today which prompted ER evaluation. CT scan showed marked worsening of left left-sided sinusitis. His right-sided sinusitis was much improved although his symptoms were located on the right. He had mild leukocytosis. Secondary to the above the patient was admitted with a diagnosis of persistent severe sinusitis with leukocytosis for further evaluation and treatment. PAST MEDICAL HISTORY Illnesses: 1. Diabetes mellitus 2. Hypertension 3. Coronary disease status post CABG 5 4. Diabetic neuropathy 5. Obstructive sleep apnea 6. Chronic kidney disease 7. Reactive airway disease/asthma 8. Recurrent sinusitis Allergies: 1. Claritin 2. Metoprolol Medications: 1. Amitriptyline 10 mg by mouth daily at bedtime 2. Tramadol 50 mg by mouth 3 times a day when necessary pain 3. Albuterol HFA 2 inhalations 4 times a day when necessary shortness of breath 4. Aspirin 81 mg by mouth daily 5. Amlodipine 10 mg by mouth daily 6. Lipitor 80 mg by mouth daily 7. Augmentin 875 mg by mouth twice a day 8. Coreg dosage unknown one by mouth daily 9. Duloxetine 30 mg 2 by mouth daily 10. Flonase 2 sprays each nostril daily 11. Gabapentin 1200 mg by mouth 3 times a day 12. Humalog 20-30 minutes subcutaneous before meals 13. Lantus 6 units subcutaneous twice a day 14. Lisinopril 10 mg by mouth twice a day 15. Nitroglycerin 0.4 mg sublingual when necessary chest pain 16. Uloric 80 mg by mouth daily 17. Zantac 150 mg by mouth twice a day 18. Zyrtec 10 mg by mouth daily Surgery: 1. Bypass surgery 5 vessels Injuries: 1. Left foot fracture Hospitalizations: 1. For above surgery and medical problems. FAMILY HISTORY Parents: 1. Father, Murphy, , 60, unknown cause, 2. Mother, Grisel, , 60, ovarian CA Siblings: 1. Male, Murphy, living, 53, leg amputation 2. Female, Crystal, living, 56, healthy 3. Female, Ann Marie, , 47, CHF Children: 1. None Other significant family history: None SOCIAL HISTORY 1. Marital Status: Single 2. Taoist: Toribio 3. Education: High school, 12 grade. 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 Occupational health exposures: Dust, lead, loud noises, heavy lifting HABITS 1. Tobacco: None 2. Drugs: None 3. Alcohol: None 4. Caffeine: None HEALTH SUPERVISION Item/Test 1. Vision screen: No recent 2. Cholesterol Profile: 2016 3. PSA: No recent 4. LATOYA: No recent 5. FOBT: No recent 6. Blood Glucose: 2017 7. Colonoscopy: No previous 8. History and physical exam: 2015 9. Audiogram: No recent 10. Mammogram: Not applicable 11. Pap/pelvic exam: Not applicable IMMUNIZATIONS: 1. Pneumococcal: No previous 2. Influenza: 2016 3. Tetanus: Unknown ADVANCED DIRECTIVES: 1. Living well: No 2. POLST: No 3. Code Status: FULL CODE 4. Durable Power Integrated Pest Management Technician Health care: No 5. Donor card: No REVIEW OF SYSTEMS Remarkable for those things stated in the history of present illness and past medical history. Seventeen point review of system completed with the following notable findings: General: Pain, fever, weakness Eyes: Redness, visual loss, corrective lenses required for decreased visual acuity Ears: Ringing, earache Nose: Recurrent sinusitis, nasal discharge Throat, sore throat Respiratory: Shortness of breath Cardiovascular: Chest tightness, fast heart rate, hypertension Genitourinary: Frequency of urination Gastrointestinal: Heartburn Muscle skeletal: Joint stiffness, joint pain, backache muscle cramping Neurological: Balance problems headaches Endocrine: Diabetes, heat/cold intolerance Physical Exam Vital Signs / I&Os Blood pressure: 123/71 mmHg Heart rate: 88/minute Respiratory rate: 24/minute Temperature: 98.3 Fahrenheit orally Pulse oximetry: 95% room air General Appearance Alert, Oriented X3, Cooperative, No acute distress HEENT Atraumatic, PERRLA, EOMI, Moist mucous membranes, tenderness over (R) frontal sinus Lungs Clear to auscultation, Normal air movement Neck Supple, No JVD Cardiovascular Regular rate and rhythm, Normal S1 and S2, No murmurs, gallops, rubs Abdomen Normal bowel sounds, Soft, No tenderness, pendulous. Extremities No cyanosis, No clubbing, bilateral lower extremity edema left greater than right Neurological Cranial nerves intact, No lateralizing signs Psych/Mental Status Mental status normal, Mood normal LAB Results Laboratory Tests 11/18 1815 Chemistry Plasma Sodium (136 - 145 mmol/L) 138 Plasma Potassium (3.5 - 5.1 mmol/L) 4.5 Plasma Chloride (98 - 107 mmol/L) 102 CO2 (Enzymatic) (21 - 32 mmol/L) 25 BUN (7 - 18 mg/dL) 25 Creatinine (0.6 - 1.3 mg/dL) 1.7 Est GFR ( Amer) (mL/min) 55.01 Est GFR (Non-Af Amer) (mL/min) 45.39 Glucose (70 - 110 mg/dL) 131 Plasma Calcium (8.5 - 10.1 mg/dL) 9.5 Total Bilirubin (0.0 - 1.0 mg/dL) 0.6 AST (15 - 37 U/L) 20 ALT (12 - 78 U/L) 25 Alkaline Phosphatase (46 - 116 U/L) 128 Total Protein (6.4 - 8.2 g/dL) 8.0 Albumin (3.3 - 5.0 g/dL) 3.2 Hematology WBC (4.5 - 11.5 K/uL) 16.3 RBC (4.50 - 5.90 M/uL) 4.85 Hgb (13.5 - 17.5 gm/dL) 13.5 Hct (41.0 - 53.0 %) 41.9 MCV (80 - 100 fL) 86 MCH (26 - 34 pg) 28 RDW (11.6 - 14.8 %) 15.4 Neut % (Auto) (50 - 75 %) 82.8 Lymph % (Auto) (25 - 40 %) 6.5 Graham % (Auto) (3 - 14 %) 9.2 Eos % (Auto) (0 - 4 %) 1.2 Baso % (Auto) (0 - 2 %) 0.3 Plt Count, EDTA (150 - 400 K/uL) 337 PUBS MCHC (31 - 37 g/dL) [address] Scan Head IMPRESSION: 1. Normal brain and ventricles. No evidence of intracranial abnormality. 2. Marked worsening in severe left sinusitis with opacification of the entire left sinuses. These findings are associated with development of expansile changes of the ethmoid air cells (suggests the possibility of fungal sinusitis). 3. Marked improvement in right sided sinusitis. 4. Findings discussed with NEERU Jennings (1840 hours), and Dr. Kristin Webb (1905 hours). Dictated by: NORIS HARMON MD D: LM;11/18/161910 Assessment and Plan Problem List 1. Sinusitis Status Acute Onset Date Unknown Plan -The patient presents with findings of severe sinusitis -Patient has been treated with Augmentin recently will switch to Levaquin 750 mg IV daily -Afrin nasal spray -Flonase nasal spray -Monitor -Consider ENT consultation 2. Hypertension Plan -Patient with history of hypertension, BP mildly elevated at this time -Placed back on outpatient medical regimen -Monitor -Low-salt diet 3. Diabetes mellitus Plan -Patient with history of type 2 diabetes mellitus insulin requiring -Continue Lantus insulin -Humalog sliding scale -Monitor -Check hemoglobin A1c -Encourage enrollment in diabetic education and weight reduction program post hospitalization 4. Obesity Status Chronic Onset Date Unknown Plan -Patient with findings of morbid obesity -Encourage weight reduction program post hospitalization 5. Diabetic neuropathy Status Chronic Onset Date Unknown Plan -Continue Neurontin -Not problematic at this time -Monitor 6. Chronic renal insufficiency Plan -Patient with findings of chronic kidney disease stage III -Monitor -Encourage improved blood sugar control and hypertension control Current status: Fair, unstable Anticipated discharge date: Anticipated discharge in 2-3 days Anticipated discharge placement: Home Patient care time: Time spent in chart review, patient interview, physical exam, CPOE, and care documentation: 70 minutes Visit to patient today: 2 Complexity of care: High E&M Codes Admission: Inpt-High/00235
[2016-11-18 22:09] VITALS: BP 179/99
--- NOTE | 2016-11-18 23:08 | ED MAR SUMMARY ---
..... Medication Administration Record [facility] [address] [place] [address] Patient: SUDHA BRIGGS Visit ID: [id number] 51y, M Weight: 171.0 kg Height/Length: 71 in BMI: 52.6 ALLERGIES: Claritin, Metoprolol Succinate Start 19:16 11/18/2016 Annabelle Read R.N., Stop 20:06 11/18/2016 Annabelle Read R.N. Medication Administered: IV NS (SALINE), Dose: IV Fluids over 1 hour(s), Rate: 1000 mL/hr, Dispensed: 1000 mL bag, Site: #1 right wrist. Medication Ordered: IV NS : initial bolus 1000 mL (1000 mL/hr), then none - (NOW). Given 19:17 11/18/2016 Annabelle Read R.N. Medication Administered: TORADOL [IVP], Dose: 30 mg IVP over 1 minute(s), Site: #1 right wrist. Medication Ordered: Toradol IV 30 mg (NOW). Given 19:19 11/18/2016 Annabelle Read R.N. Medication Administered: BENADRYL [IVP] (DIPHENHYDRAMINE HCL), Dose: 25 mg IVP over 1 minute(s), Site: #1 right wrist. Medication Ordered: Benadryl IV 25 mg (NOW). Given 19:11/18/2016 Annabelle Read R.N. Medication Administered: REGLAN [IVP] (METOCLOPRAMIDE HCL), Dose: 10 mg IVP over 5 minute(s), Site: #1 right wrist. Medication Ordered: Reglan IV 10 mg (NOW). Start 20:18 11/18/2016 Annabelle Read R.N., Stop 21:11/18/2016 Annabelle Read R.N. Medication Administered: UNASYN [IVPB] (AMPICILLIN-SULBACTAM SODIUM), Dose: 3 gm IVPB over 1 hour(s), Rate: 100 mL/hr, Dispensed: 100 mL bag, Site: #1 right wrist. Medication Ordered: Unasyn IV 3 gm/100mL (NOW).
--- NOTE | 2016-11-18 23:08 | ED MED RECONCILIATION SUMMARY ---
Patient: SUDHA BRIGGS Medication Reconciliation Report [facility] VisitID: [id number] [place] [address] 51y, M Registration Date/Time: 11/18/2016 Weight: 171.0 kg Height/Length: 71 in. BMI: 52.6 ALLERGIES: Claritin, Metoprolol Succinate The patient's Home Medications are listed below: THE FOLLOWING MEDICATIONS NEED TO BE RECONCILED: Albuterol Sulfate HFA Inhalation (108 (90 Base) mcg/act) 2 puffs, 4x a day Amitriptyline HCl Oral (10 mg), at bedtime AmLODIPine Besylate Oral (10 mg), daily Aspirin Low Dose Oral (81 mg) 1 tablet, daily Atorvastatin Calcium Oral (80 mg) 1 tablet, daily Augmentin Oral (875-125 mg) 1 tablet, 2x a day Benzonatate Oral (200 mg) 1 capsule, 3x a day Carvedilol Phosphate ER Oral Cefdinir Oral (300 mg) 1 capsule, 2x a day DULoxetine HCl Oral (30 mg) 2 capsules Flonase Nasal (50 mcg/act) 2 sprays, daily Gabapentin Oral 1200 mg, 3x a day HumaLOG Subcutaneous (100 unit/mL) 20-30 units , before meals Lantus Subcutaneous (100 unit/mL) 60 units, 2x a day Lisinopril Oral 10 mg, 2x a day Nitroglycerin Sublingual (0.4 mg) [place] 3 Oral ProAir HFA Inhalation (108 (90 Base) mcg/act) Ranitidine HCl Oral 150 mg, 2x a day Tramadol HCL Oral, 3x a day Uloric Oral (80 mg), daily Vitamin B-12 Oral ZyrTEC Allergy Oral (10 mg) 1 tablet, daily The source(s) of the original Home Medication information: Not obtained. The following Medications were given to the patient in the Emergency Department: IV NS IV Fluids bolus 0, then 1000 mL/hr, administered: 11/18/2016 7:16:00 PM Toradol [IVP] IVP 30 mg, administered: 11/18/2016 7:17:00 PM Benadryl [IVP] IVP 25 mg, administered: 11/18/2016 7:19:00 PM Reglan [IVP] IVP 10 mg, administered: 11/18/2016 7:20:00 PM Unasyn [IVPB] IVPB bolus 0, then 3 gm 100 mL/hr, administered: 11/18/2016 8:18:00 PM The following Medications were prescribed to the patient: None.
--- NOTE | 2016-11-18 23:08 | ED DISCHARGE INSTRUCTIONS ---
Patient: SUDHA BRIGGS General Instructions [facility] VisitID: [id number] [address] [place] [address] 51y, M Registration Date/Time: 11/18/2016 Chronic ethmoidal and frontal sinusitis. (Electronically signed by Kamila Arreola A.R.N.P. 11/18/2016 23:07)
--- NOTE | 2016-11-18 23:08 | ED MAR SUMMARY ---
..... Medication Administration Record [facility] [address] [place] [address] Patient: SUDHA BRIGGS Visit ID: [id number] 51y, M Weight: 171.0 kg Height/Length: 71 in BMI: 52.6 ALLERGIES: Claritin, Metoprolol Succinate Start 19:16 11/18/2016 Annabelle Read R.N., Stop 20:06 11/18/2016 Annabelle Read R.N. Medication Administered: IV NS (SALINE), Dose: IV Fluids over 1 hour(s), Rate: 1000 mL/hr, Dispensed: 1000 mL bag, Site: #1 right wrist. Medication Ordered: IV NS : initial bolus 1000 mL (1000 mL/hr), then none - (NOW). Given 19:17 11/18/2016 Annabelle Read R.N. Medication Administered: TORADOL [IVP], Dose: 30 mg IVP over 1 minute(s), Site: #1 right wrist. Medication Ordered: Toradol IV 30 mg (NOW). Given 19:19 11/18/2016 Annabelle Read R.N. Medication Administered: BENADRYL [IVP] (DIPHENHYDRAMINE HCL), Dose: 25 mg IVP over 1 minute(s), Site: #1 right wrist. Medication Ordered: Benadryl IV 25 mg (NOW). Given 19:11/18/2016 Annabelle Read R.N. Medication Administered: REGLAN [IVP] (METOCLOPRAMIDE HCL), Dose: 10 mg IVP over 5 minute(s), Site: #1 right wrist. Medication Ordered: Reglan IV 10 mg (NOW). Start 20:18 11/18/2016 Annabelle Read R.N., Stop 21:11/18/2016 Annabelle Read R.N. Medication Administered: UNASYN [IVPB] (AMPICILLIN-SULBACTAM SODIUM), Dose: 3 gm IVPB over 1 hour(s), Rate: 100 mL/hr, Dispensed: 100 mL bag, Site: #1 right wrist. Medication Ordered: Unasyn IV 3 gm/100mL (NOW).
--- NOTE | 2016-11-18 23:08 | ED MED RECONCILIATION SUMMARY ---
Patient: SUDHA BRIGGS Medication Reconciliation Report [facility] VisitID: [id number] [place] [address] 51y, M Registration Date/Time: 11/18/2016 Weight: 171.0 kg Height/Length: 71 in. BMI: 52.6 ALLERGIES: Claritin, Metoprolol Succinate The patient's Home Medications are listed below: THE FOLLOWING MEDICATIONS NEED TO BE RECONCILED: Albuterol Sulfate HFA Inhalation (108 (90 Base) mcg/act) 2 puffs, 4x a day Amitriptyline HCl Oral (10 mg), at bedtime AmLODIPine Besylate Oral (10 mg), daily Aspirin Low Dose Oral (81 mg) 1 tablet, daily Atorvastatin Calcium Oral (80 mg) 1 tablet, daily Augmentin Oral (875-125 mg) 1 tablet, 2x a day Benzonatate Oral (200 mg) 1 capsule, 3x a day Carvedilol Phosphate ER Oral Cefdinir Oral (300 mg) 1 capsule, 2x a day DULoxetine HCl Oral (30 mg) 2 capsules Flonase Nasal (50 mcg/act) 2 sprays, daily Gabapentin Oral 1200 mg, 3x a day HumaLOG Subcutaneous (100 unit/mL) 20-30 units , before meals Lantus Subcutaneous (100 unit/mL) 60 units, 2x a day Lisinopril Oral 10 mg, 2x a day Nitroglycerin Sublingual (0.4 mg) [place] 3 Oral ProAir HFA Inhalation (108 (90 Base) mcg/act) Ranitidine HCl Oral 150 mg, 2x a day Tramadol HCL Oral, 3x a day Uloric Oral (80 mg), daily Vitamin B-12 Oral ZyrTEC Allergy Oral (10 mg) 1 tablet, daily The source(s) of the original Home Medication information: Not obtained. The following Medications were given to the patient in the Emergency Department: IV NS IV Fluids bolus 0, then 1000 mL/hr, administered: 11/18/2016 7:16:00 PM Toradol [IVP] IVP 30 mg, administered: 11/18/2016 7:17:00 PM Benadryl [IVP] IVP 25 mg, administered: 11/18/2016 7:19:00 PM Reglan [IVP] IVP 10 mg, administered: 11/18/2016 7:20:00 PM Unasyn [IVPB] IVPB bolus 0, then 3 gm 100 mL/hr, administered: 11/18/2016 8:18:00 PM The following Medications were prescribed to the patient: None.
--- NOTE | 2016-11-18 23:08 | ED DISCHARGE INSTRUCTIONS ---
Patient: SUDHA BRIGGS General Instructions [facility] VisitID: [id number] [address] [place] [address] 51y, M Registration Date/Time: 11/18/2016 Chronic ethmoidal and frontal sinusitis. (Electronically signed by Kamila Arreola A.R.N.P. 11/18/2016 23:07)
[2016-11-19 01:57] VITALS: BP 158/99
[2016-11-19 07:23] VITALS: BP 177/94
[2016-11-19 10:58] VITALS: BP 147/81
[2016-11-19 13:57] VITALS: BP 146/82
--- NOTE | 2016-11-19 17:08 | Progress Note ---
Subjective General Pt seen and examined. Patients pain and congestion have improved immensely. Patient has no complaints at the moment. Constitutional Malaise. Denies: Fever, Chills, Sweats, Weakness, Other. Eyes Denies: Pain, Vision Change, Conjunctival Inflammation, Eyelid Inflammation, Redness, Other. ENT Nasal Discharge, Nasal Congestion. Denies: Ear Pain, Ear Discharge, Nose Pain, Mouth Pain, Mouth Swelling, Throat Pain, Throat Swelling, Other. Respiratory Denies: Cough, Dry, SOB w/exertion, Wheezing, Hemoptysis, Pleuritic Pain, Sputum , Other. Cardiovascular Denies: Chest Pain, Palpitations, Orthopnea, PND, Edema, Light-headedness, Other. Gastrointestinal Denies: Nausea, Vomiting, Abdominal Pain, Diarrhea, Constipation, Melena, Hematochezia, Other. Genitourinary Denies: Dysuria, Frequency, Incontinence, Hematuria, Retention, Other. Musculoskeletal Denies: Neck Pain, Shoulder Pain, Arm Pain, Back Pain, Hand Pain, Leg Pain, Foot Pain, Other. Skin Denies: Rash, Lesions, Jaundice, Bruising, Other. Neurological Denies: Weakness, Numbness, Incoordination, Change in speech, Confusion, Seizures, Other. Physical Exam Vital Signs / I&Os Vital Signs Date Time Temp Pulse Resp B/P Pulse O2 O2 Flow FiO2 Ox Delivery Rate 11/19 1626 Nasal 2.0 Cannula 11/19 1357 98.1 95 22 146/82 94 Nasal 2.0 Cannula 11/19 1058 99.3 101 22 147/81 94 Nasal 2.0 Cannula 11/19 0922 2.0 11/19 0840 97 11/19 0739 94 Nasal 2.0 Cannula 11/19 0723 99.3 102 22 177/94 90 11/19 0157 98.8 97 20 158/99 94 Room Air 11/19 0137 Room Air 11/18 2209 98.2 85 20 179/99 94 Room Air I&O 11/18 0800 11/18 1600 11/19 0000 Intake Total 0 Output Total 0 Balance 0 General Appearance Alert, Oriented X3, No acute distress HEENT Atraumatic, PERRLA, - pain to palpation of the forehead and mastooid sinuses - some degree of purulent discharge when forced to expel Lungs Clear to auscultation, Normal air movement Neck Supple, No masses, No thyromegaly Cardiovascular Regular rate and rhythm, No murmurs, gallops, rubs Abdomen Soft, No tenderness, No guarding, No hepatosplenomegaly Extremities No edema, Normal pulses, No tenderness, Strength = upper ext's, Strength = lower ext's, Rahul's sign negative Skin No Breakdown, No Significant Lesions Neurological Normal speech, Normal tone, Cranial nerves intact, Strength 5/5 x4 ext's Psych/Mental Status Mood normal LAB Results Laboratory Tests 11/18 11/19 11/19 1815 0848 0848 Chemistry Plasma Sodium (136 - 145 mmol/L) 138 136 Plasma Potassium (3.5 - 5.1 mmol/L) 4.5 4.5 Plasma Chloride (98 - 107 mmol/L) 102 102 CO2 (Enzymatic) (21 - 32 mmol/L) 25 23 BUN (7 - 18 mg/dL) 25 23 Creatinine (0.6 - 1.3 mg/dL) 1.7 1.7 Est GFR ( Amer) (mL/min) 55.01 55.01 Est GFR (Non-Af Amer) (mL/min) 45.39 45.39 Glucose (70 - 110 mg/dL) 131 267 Hemoglobin A1c % (4.5 - 6.2 %) 11.3 Plasma Calcium (8.5 - 10.1 mg/dL) 9.5 9.0 Total Bilirubin (0.0 - 1.0 mg/dL) 0.6 AST (15 - 37 U/L) 20 ALT (12 - 78 U/L) 25 Alkaline Phosphatase (46 - 116 U/L) 128 Total Protein (6.4 - 8.2 g/dL) 8.0 Albumin (3.3 - 5.0 g/dL) 3.2 Hematology WBC (4.5 - 11.5 K/uL) 16.3 14.2 RBC (4.50 - 5.90 M/uL) 4.85 4.38 Hgb (13.5 - 17.5 gm/dL) 13.5 12.1 Hct (41.0 - 53.0 %) 41.9 37.8 MCV (80 - 100 fL) 86 86 MCH (26 - 34 pg) 28 28 RDW (11.6 - 14.8 %) 15.4 15.4 Neut % (Auto) (50 - 75 %) 82.8 80 Lymph % (Auto) (25 - 40 %) 6.5 8 [place] % (Auto) (3 - 14 %) 9.2 6 Eos % (Auto) (0 - 4 %) 1.2 4 Baso % (Auto) (0 - 2 %) 0.3 0 Band Neutrophils % (0 - 8 %) 2 Metamyelocytes % (0 - 1 %) 0 Myelocytes (0 - 1 %) 0 Other Cell Type 0 Plt Count, EDTA (150 - 400 K/uL) 337 342 RBC Morphology OCC GIANT PLATELETS Poikilocytosis (manual 1+ Anisocytosis (manual) 2+ PUBS MCHC (31 - 37 g/dL) 32 32 Assessment and Plan Problem List 1. Sinusitis Status Acute Onset Date Unknown Plan -The patient presents with findings of severe sinusitis -Patient has been treated with Augmentin recently will switch to Levaquin 750 mg IV daily -Afrin nasal spray -Flonase nasal spray -given degree of improvment of pain and discharge will hold ENT consult 2. Hypertension Plan - c/w out patient regimen - aside from am hypertensive episode patient has been well controlled 3. Diabetes mellitus Plan -Continue Lantus insulin -Humalog sliding scale - HBa1c is 11.2 - will monitor baseline blood sugars and see if patient can improve his insulin regimen 4. Obesity Status Chronic Onset Date Unknown Plan -Encourage weight reduction program post hospitalization 5. Diabetic neuropathy Status Chronic Onset Date Unknown Plan - c/w home dose of neurontin 6. Chronic renal insufficiency Plan - stable - will relate to patient the need for good hypertension and blood sugar control in order to prevent further damage
[2016-11-19 18:13] VITALS: BP 107/52
[2016-11-19 22:50] VITALS: BP 144/88
[2016-11-20 02:57] VITALS: BP 138/74
[2016-11-20 07:04] VITALS: BP 142/94
[2016-11-20 12:01] VITALS: BP 130/76
[2016-11-20 18:02] VITALS: BP 111/68
--- NOTE | 2016-11-20 18:50 | Progress Note ---
Subjective General This patient has been admitted with persistent sinusitis not responding to outpatient therapy. He is currently on levofloxacin 750 mg IV daily. He seems to be gradually improving with this. He also has diabetes and problems with hypertension and obesity. Constitutional Malaise. Eyes Denies: Vision Change, Conjunctival Inflammation, Eyelid Inflammation. ENT Denies: Nasal Congestion. Respiratory Denies: Cough, SOB w/exertion, Wheezing. Cardiovascular Denies: Chest Pain, Palpitations, Orthopnea. Gastrointestinal Denies: Nausea (Nausea develops after pain med). Genitourinary Denies: Dysuria, Frequency, Incontinence. Musculoskeletal Denies: Other (no significant musculoskeletal). Skin Denies: Rash, Lesions. Neurological Other (ongoing R frontal headache ). Physical Exam Vital Signs / I&Os Vital Signs Date Time Temp Pulse Resp B/P Pulse O2 O2 Flow FiO2 Ox Delivery Rate 11/20 1802 98.4 88 20 111/68 94 Room Air 11/20 1713 102 11/20 1700 Room Air 11/20 1201 98.6 90 20 130/76 97 Room Air 0.0 11/20 0828 87 11/20 0759 94 11/20 0704 98.6 81 20 142/94 90 Room Air 0.0 11/20 0257 99.0 86 20 138/74 91 Room Air 11/19 2250 99.0 88 20 144/88 92 Nasal Cannula 11/19 1948 2.0 I&O 11/19 0800 11/19 1600 11/20 0000 Intake Total 870 1283 929 Output Total 500 1625 Balance 370 1283 -696 General Appearance Mild distress, obese male appearing somewhat uncomfortable due to nausea and headache though oriented and answering questions appropriately. HEENT tenderness over the sinuses particularly the right frontal area and both left and right maxillary areas Lungs Clear to auscultation, Normal air movement Cardiovascular Regular rate and rhythm, Normal S1 and S2, No murmurs, gallops, rubs Abdomen Soft, No tenderness, No guarding, No rebound Extremities +1 lower extremity edema. No other abnormalities. Skin No Rashes, No Breakdown Neurological Normal speech, Normal tone, Cranial nerves intact, No lateralizing signs Psych/Mental Status Mental status normal LAB Results Laboratory Tests 11/20 540 Chemistry Plasma Sodium (136 - 145 mmol/L) 138 Plasma Potassium (3.5 - 5.1 mmol/L) 3.9 Plasma Chloride (98 - 107 mmol/L) 103 CO2 (Enzymatic) (21 - 32 mmol/L) 25 BUN (7 - 18 mg/dL) 22 Creatinine (0.6 - 1.3 mg/dL) 1.8 Est GFR ( Amer) (mL/min) 51.50 Est GFR (Non-Af Amer) (mL/min) 42.49 Glucose (70 - 110 mg/dL) 176 Plasma Calcium (8.5 - 10.1 mg/dL) 9.3 Hematology WBC (4.5 - 11.5 K/uL) 11.6 RBC (4.50 - 5.90 M/uL) 4.29 Hgb (13.5 - 17.5 gm/dL) 11.9 Hct (41.0 - 53.0 %) 37.2 MCV (80 - 100 fL) 87 MCH (26 - 34 pg) 28 RDW (11.6 - 14.8 %) 15.5 Neut % (Auto) (50 - 75 %) 45 Lymph % (Auto) (25 - 40 %) 37 Cherry % (Auto) (3 - 14 %) 6 Eos % (Auto) (0 - 4 %) 0 Baso % (Auto) (0 - 2 %) 0 Band Neutrophils % (0 - 8 %) 12 Metamyelocytes % (0 - 1 %) 0 Myelocytes (0 - 1 %) 0 Other Cell Type 0 Plt Count, EDTA (150 - 400 K/uL) 333 Anisocytosis (manual) 1+ PUBS MCHC (31 - 37 g/dL) 32 Assessment and Plan Problem List 1. Sinusitis Status Acute Onset Date Unknown Plan Continue levofloxacin intravenously. Recheck CBC, sedimentation rate and C- reactive protein tomorrow. Recheck CT scan of sinuses if not substantially better. Consider ENT consult to try to obtain specimen from involved sinus to check for fungus if patient continues to have major difficulties. 2. Diabetes mellitus Plan Blood sugars continue to be in the mid 100s to 200s. Patient is on a substantial dose of Lantus and sliding scale insulin. Elevation is probably affected by undergoing sinus infection. Continue present treatment. E&M Codes Rounding: Inpt-Moderate/[id number]
[2016-11-20 22:38] VITALS: BP 116/60
[2016-11-21 02:31] VITALS: BP 138/75
[2016-11-21 06:55] VITALS: BP 157/81
--- NOTE | 2016-11-21 08:30 | Progress Note ---
Subjective General Brief history: The patient is a 51-year-old single white male with a significant past mental history of diabetes mellitus, hypertension, coronary disease status post CABG, who presented to [facility] emergency department on the day of admission secondary to complaints of sinusitis, facial pain. [facility] ER evaluation was consistent with severe left sided sinusitis. Secondary to the above the patient was admitted I will image Nadiya Baez for further evaluation treatment. The patient has a long-standing history of recurrent sinus infections. He has recently been treated over the past several weeks with Augmentin. He would have improved symptoms with each treatment course only to have his symptoms recur. He has experienced facial pain, headache, nasal congestion, rhinorrhea-bloody/ purulent. He developed severe pain over the right frontal sinus today which prompted ER evaluation. CT scan showed marked worsening of left left-sided sinusitis. His right-sided sinusitis was much improved although his symptoms were located on the right. He had mild leukocytosis. Secondary to the above the patient was admitted with a diagnosis of persistent severe sinusitis with leukocytosis for further evaluation and treatment. Patient currently is post repeat CT sinuses this am. Feels a little better than prior. Has been with lots of nausea this am and had phernergan and zofran. Now sick to his stomach. Physical Exam Vital Signs / I&Os Vital Signs Date Time Temp Pulse Resp B/P Pulse O2 O2 Flow FiO2 Ox Delivery Rate 11/21 0655 98.2 77 20 157/81 94 11/21 0231 98.1 87 22 138/75 94 Room Air 11/20 2238 98.4 88 20 116/60 91 11/20 1802 98.4 88 20 111/68 94 Room Air 11/20 1713 102 11/20 1700 Room Air 11/20 1201 98.6 90 20 130/76 97 Room Air 0.0 11/20 0828 87 I&O 11/21 0000 11/20 1600 11/20 0800 Intake Total 359 1320 787 Output Total 600 900 700 Balance -241 420 87 General Appearance Alert, obese HEENT tender diffusely at sinuses right maxillary and frontal the most. Lungs Clear to auscultation, Normal air movement Cardiovascular Regular rate and rhythm, No murmurs, gallops, rubs Abdomen obese non tender Extremities +1 edema bilaterally LAB Results Laboratory Tests 11/21 0530 Chemistry Plasma Sodium (136 - 145 mmol/L) 139 Plasma Potassium (3.5 - 5.1 mmol/L) 4.1 Plasma Chloride (98 - 107 mmol/L) 104 CO2 (Enzymatic) (21 - 32 mmol/L) 25 BUN (7 - 18 mg/dL) 25 Creatinine (0.6 - 1.3 mg/dL) 1.9 Est GFR ( Amer) (mL/min) 48.38 Est GFR (Non-Af Amer) (mL/min) 39.92 Glucose (70 - 110 mg/dL) 161 Plasma Calcium (8.5 - 10.1 mg/dL) 8.8 Hematology WBC (4.5 - 11.5 K/uL) 11.1 RBC (4.50 - 5.90 M/uL) 4.10 Hgb (13.5 - 17.5 gm/dL) 11.2 Hct (41.0 - 53.0 %) 35.2 MCV (80 - 100 fL) 86 MCH (26 - 34 pg) 27 RDW (11.6 - 14.8 %) 15.5 Neut % (Auto) (50 - 75 %) 60.4 Lymph % (Auto) (25 - 40 %) 19.7 Ripley % (Auto) (3 - 14 %) 14.4 Eos % (Auto) (0 - 4 %) 5.1 Baso % (Auto) (0 - 2 %) 0.4 Plt Count, EDTA (150 - 400 K/uL) 322 PUBS MCHC (31 - 37 g/dL) 32 ESR Westergren (0 - 20 mm/hr) 65 Assessment and Plan Problem List 1. Sinusitis Status Acute Onset Date Unknown Plan Has some improvement but still bad pain. Will try chaning to PO levoquin with the nausea. ? add on anti fungal depdending on the CT this am. 2. Diabetes mellitus Plan Has some elevation in blood sugar but on a good dose of insulin and high dose ISS. ? partially related to infection. 3. Obesity Status Chronic Onset Date Unknown Plan Unchanged.
--- NOTE | 2016-11-21 09:37 | DIAGNOSTIC IMAGING REPORT ---
PROCEDURE: CT SINUS/FACIAL BONES W/O CONT CLINICAL INDICATION: T scan to see if antibiotics are showing beneficial effect TECHNIQUE: Noncontrast axial images with coronal reformations. COMPARISON: Sinus CT 09/07/2016 FINDINGS: Interval complete opacification of the left ethmoid air cells with further expansion and bony erosion suggestive of a mucocele. Interval progression of sinus disease with complete opacification of the left sphenoid, maxillary and left frontal sinus Interval resolution of right frontal sinus disease and improved mild right maxillary sinus disease. Mild right sphenoid sinus disease. 18 to right ostiomeatal unit. Mild right nasal septal deviation. IMPRESSION: 1. Further progression of severe left sinusitis with complete opacification of all left sinuses. There is also expansion of the ethmoid air cell suggestive of a mucocele. 2. Improved mild right sinusitis All CT scans at this facility use dose modulation, iterative reconstruction, and/or weight-based dosing when appropriate to reduce radiation dose to as low as reasonably achievable.
[2016-11-21 10:06] VITALS: BP 165/94
[2016-11-21 13:49] VITALS: BP 138/78
[2016-11-21 18:10] VITALS: BP 114/60
[2016-11-21 23:32] VITALS: BP 153/85
[2016-11-22 02:24] VITALS: BP 142/74
--- NOTE | 2016-11-22 07:11 | Progress Note ---
Subjective General Brief history: The patient is a 51-year-old single white male with a significant past mental history of diabetes mellitus, hypertension, coronary disease status post CABG, who presented to [facility] emergency department on the day of admission secondary to complaints of sinusitis, facial pain. [facility] ER evaluation was consistent with severe left sided sinusitis. Secondary to the above the patient was admitted I will image Nadiya Baez for further evaluation treatment. The patient has a long-standing history of recurrent sinus infections. He has recently been treated over the past several weeks with Augmentin. He would have improved symptoms with each treatment course only to have his symptoms recur. He has experienced facial pain, headache, nasal congestion, rhinorrhea-bloody/ purulent. He developed severe pain over the right frontal sinus today which prompted ER evaluation. CT scan showed marked worsening of left left-sided sinusitis. His right-sided sinusitis was much improved although his symptoms were located on the right. He had mild leukocytosis. Secondary to the above the patient was admitted with a diagnosis of persistent severe sinusitis with leukocytosis for further evaluation and treatment. This am patient states that he still has 6/10 right sided head pain. Maybe a little better than yesterday. No fevers, no sz. Physical Exam Vital Signs / I&Os Vital Signs Date Time Temp Pulse Resp B/P Pulse O2 O2 Flow FiO2 Ox Delivery Rate 11/22 0224 98.2 63 20 142/74 91 Room Air 11/21 2332 98.1 67 20 153/85 96 Room Air 11/21 1810 98.1 72 20 114/60 92 Room Air 11/21 1723 70 11/21 1626 Room Air 11/21 1349 98.6 83 20 138/78 91 11/21 1006 99.3 63 20 165/94 95 Room Air 0.0 11/21 0937 68 I&O 11/22 0000 11/21 1600 11/21 0800 Intake Total 307 088 3781 Output Total 5885 889 9427 Balance -280 380 -410 General Appearance Alert, Cooperative HEENT tender at the right sinuses to percussion Cardiovascular Regular rate and rhythm Abdomen Soft, obese Extremities +tr edema bilaterally Neurological Normal gait, No lateralizing signs Assessment and Plan Problem List 1. Diabetes mellitus Plan stable 2. Obesity Plan Unchanged 3. Sinusitis Plan Patient with continued face pain 01/21. I will try to contact ENT regarding plan. I expect we will try d/c today on po abx and pain/ nausea meds. Nausea has been better. Will then f/u ENT on as has appt.
--- NOTE | 2016-11-22 07:11 | Progress Note ---
Subjective General Brief history: The patient is a 51-year-old single white male with a significant past mental history of diabetes mellitus, hypertension, coronary disease status post CABG, who presented to [facility] emergency department on the day of admission secondary to complaints of sinusitis, facial pain. [facility] ER evaluation was consistent with severe left sided sinusitis. Secondary to the above the patient was admitted I will image Nadiya Baez for further evaluation treatment. The patient has a long-standing history of recurrent sinus infections. He has recently been treated over the past several weeks with Augmentin. He would have improved symptoms with each treatment course only to have his symptoms recur. He has experienced facial pain, headache, nasal congestion, rhinorrhea-bloody/ purulent. He developed severe pain over the right frontal sinus today which prompted ER evaluation. CT scan showed marked worsening of left left-sided sinusitis. His right-sided sinusitis was much improved although his symptoms were located on the right. He had mild leukocytosis. Secondary to the above the patient was admitted with a diagnosis of persistent severe sinusitis with leukocytosis for further evaluation and treatment. This am patient states that he still has 6/10 right sided head pain. Maybe a little better than yesterday. No fevers, no sz. Physical Exam Vital Signs / I&Os Vital Signs Date Time Temp Pulse Resp B/P Pulse O2 O2 Flow FiO2 Ox Delivery Rate 11/22 0224 98.2 63 20 142/74 91 Room Air 11/21 2332 98.1 67 20 153/85 96 Room Air 11/21 1810 98.1 72 20 114/60 92 Room Air 11/21 1723 70 11/21 1626 Room Air 11/21 1349 98.6 83 20 138/78 91 11/21 1006 99.3 63 20 165/94 95 Room Air 0.0 11/21 0937 68 I&O 11/22 0000 11/21 1600 11/21 0800 Intake Total 644 655 9911 Output Total 1846 107 4279 Balance -280 380 -410 General Appearance Alert, Cooperative HEENT tender at the right sinuses to percussion Cardiovascular Regular rate and rhythm Abdomen Soft, obese Extremities +tr edema bilaterally Neurological Normal gait, No lateralizing signs Assessment and Plan Problem List 1. Diabetes mellitus Plan stable 2. Obesity Plan Unchanged 3. Sinusitis Plan Patient with continued face pain 01/21. I will try to contact ENT regarding plan. I expect we will try d/c today on po abx and pain/ nausea meds. Nausea has been better. Will then f/u ENT on as has appt.
[2016-11-22] MEDS ORDERED: OXYCODONE/ACETA1 TA1 PO (07:13)
[2016-11-22] MEDS ORDERED: LEVOFLOXACIN250 MG PO (07:14)
--- NOTE | 2016-11-22 07:15 | Provider's Discharge Care Plan ---
Problem, Goal, Plan Problem List 1. Diabetes mellitus Instructions: Take meds as directed, f/u pmd and then sinusitis 2. Sinusitis Instructions: Follow up as needed, Take meds as directed
[2016-11-22 07:22] VITALS: BP 157/97
--- NOTE | 2016-11-22 08:49 | Provider's Discharge Care Plan ---
Problem, Goal, Plan Problem List 1. Sinusitis Instructions: Call right away with fevers, disorientation, vision changes, start afrin TID
--- NOTE | 2016-11-22 08:49 | Provider's Discharge Care Plan ---
Problem, Goal, Plan Problem List 1. Sinusitis Instructions: Call right away with fevers, disorientation, vision changes, start afrin TID
[2016-11-22] MEDS ORDERED: AFRIN NASAL SP0.05 % (08:51)
[2016-11-22] MEDS ORDERED: PREDNISONE20 MG PO (08:52)
--- NOTE | 2016-11-22 09:37 | DISCHARGE SUMMARY ---
ADMIT DATE: 11/18/2016 DISCHARGE DATE: ADMITTING DIAGNOSES: 1. Sinus pain 2. Sinusitis 3. Diabetes 4. Chronic renal insufficiency 5. Obesity 6. Hypertension DISCHARGE DIAGNOSES: 1. Sinus pain 2. Sinusitis 3. Diabetes 4. Chronic renal insufficiency 5. Obesity 6. Hypertension BRIEF HISTORY: Please refer to Dr. Hearn's dictation for details. This is a 51- year-old male with diabetes who has had longstanding sinusitis, never seen an ear, nose, throat specialist for this, who presented with severe sinus pain and a terrible looking CT of sinuses. He was admitted. He was treated with IV antibiotics. HOSPITAL COURSE: Treated with IV antibiotics and improved over the next number of days. He still was having severe sinus pain, treated with pain medicines as well. His diabetes was managed with insulin with home and sliding scale insulin. When he was ready for discharge, he was feeling better. His sinus pain was improved some, though still significant sinus pain, sometimes as much as 7/10. His vital signs at time of discharge was temperature 98.1, blood pressure 157/97, heart rate of 70, saturating 93% on room air. His last white count done the day prior to discharge was 11.1, hematocrit 35.2, and platelets of 322, a sedimentation rate was 65 at that time. DISCHARGE INSTRUCTIONS/MEDICATIONS: He was discharged with medications including oxycodone, 5/325 one p.o. q.6 hours p.r.n. pain. Levofloxacin 750 mg p.o. daily. Afrin 1 spray t.i.d. Prednisone 40 mg daily. Aspirin 81 mg daily. Atorvastatin 80 mg daily. Gabapentin 600 mg t.i.d. Lispro insulin 25-30 units subcutaneous with meals. Lantus 60 units subcutaneous b.i.d. Cetirizine 10 mg daily. Vitamin D 1 daily. Alpha lipoic acid 300 mg daily. Albuterol 2 puffs q.4 hours p.r.n. Fluticasone 2 sprays each nostril daily. Furosemide 20 mg p.o. b.i.d. Amitriptyline 10 mg at bedtime. Ranitidine 150 mg b.i.d. Vitamin D 500 mcg daily of 12, Bactroban 2% topical b.i.d. Amlodipine 10 mg p.o. daily. Carvedilol 25 mg b.i.d. Duloxetine 30 mg p.o. daily. Lisinopril 10 mg p.o. b.i.d. Nitroglycerin 0.4 sublingual q.5 minutes p.r.n. for chest pain. Uloric 80 mg daily. Magnesium 64 mg b.i.d. The patient is discharged to home, has a followup with ears, nose, throat specialist, Dr. Gramajo. I did discuss with Dr. Gramajo today his treatment, he agreed with some prednisone, Afrin, antibiotics with discharge as well as pain medications. We will have follow up sooner as needed, and Dr. Gramajo has an appointment on . The patient at time of discharge was feeling better. He was afebrile for over 48 hours. He was looking improved.
== END 2016-11-22 10:55 | disposition home or self-care (01) | DRG 153 ==
LOC: ED SRH 17:53 → TRANS SRH 20:15 → ACUTE2 SRH 22:19
PROVIDERS: ADMIT Internal Medicine
DX: J01.20 Acute ethmoidal sinusitis, unspecified (principal); J01.10 Acute frontal sinusitis, unspecified; J45.909 Unspecified asthma, uncomplicated; E11.22 Type 2 diabetes mellitus with diabetic chronic kidney disease; I12.9 Hypertensive chronic kidney disease with stage 1 through stage 4 chronic kidney disease, or unspecified chronic kidney disease; N18.3 Chronic kidney disease, stage 3 (moderate); E11.40 Type 2 diabetes mellitus with diabetic neuropathy, unspecified; E66.9 Obesity, unspecified; Z68.43 Body mass index [BMI] 50.0-59.9, adult; Z79.4 Long term (current) use of insulin; G47.33 Obstructive sleep apnea (adult) (pediatric); I25.10 Atherosclerotic heart disease of native coronary artery without angina pectoris; Z95.1 Presence of aortocoronary bypass graft
CPT/HCPCS: 90047; 90074; 90098; 90100; 91286; 91295; 95059; 95061; 95150

== ENCOUNTER 2016-12-03 02:53 | Emergency (ER) | payer OTHER ==
[~2016-12-03 02:53] MED LIST changes: +AFRIN NASAL SP0.05 %; +LEVOFLOXACIN250 MG PO; +PREDNISONE20 MG PO
--- NOTE | 2016-12-03 04:23 | ED ORDER SUMMARY ---
..... Patient: SUDHA BRIGGS OrderSheet [facility] VisitID: [id number] [address] [place] [address] 51y, M Registration Date/Time: 12/03/2016 ORDER SHEET Weight: 167.8 kg Allergies: Claritin, Metoprolol Succinate GENERAL ORDERS: CT Head wo Cont Urgent (06:32 12/03/2016 Elliott Ray) (Ack 6:35 IJurca ER Tech1) (7:34 MWinterer R.N.) CT Cervical Spine wo Cont Urgent (06:32 12/03/2016 Elliott Ray) (Ack 6:35 IJurca ER Tech1) (7:34 MWinterer R.N.) Embossed Or Impressed Lettering Painter (Continuous) (fall, head injury, possible syncope) (06:49 12/03/2016 Elliott Ray) (Ack 6:51 IJurca ER Tech1) (6:55 TBowen R.N.) CBC w Diff Urgent (06:49 12/03/2016 Elliott Ray) (Ack 6:51 IJurca ER Tech1) (8:53 KWilliams R.N.) CMP Urgent (06:49 12/03/2016 Elliott Ray) (Ack 6:51 IJurca ER Tech1) (8:53 KWilliams R.N.) Troponin-I Urgent (06:49 12/03/2016 Elliott Ray) (Ack 6:51 IJurca ER Tech1) (8:53 KWilliams R.N.) PT with INR Urgent (06:49 12/03/2016 Elliott Ray) (Ack 6:51 DAMEONurca ER Tech1) (8:53 KWilliams R.N.) PTT Urgent (06:49 12/03/2016 Elliott Ray) (Ack 6:51 DAMEONurca ER Tech1) (8:53 KWilliams R.N.) EKG - ER Stat (06:49 12/03/2016 Elliott Ray) (Ack 6:51 IJurca ER Tech1) (6:55 IJurca ER Tech1) Pulse oximeter (06:49 12/03/2016 Elliott Ray) (Ack 6:51 IJurca ER Tech1) (6:55 TBowen R.N.) Urine Drug Screen Urgent (09:55 12/03/2016 Jaki LEE) (Ack 9:59 OSnell) (10:40 KWilliams R.N.) PCT (Procalcitonin) Urgent (09:56 12/03/2016 Jaki LEE) (Ack 9:59 OSnell) (10:15 OSnell) Lactate, Serum Urgent (09:56 12/03/2016 Jaki LEE) (Ack 9:59 OSnell) (10:40 KWilliams R.N.) Blood Culture (No) (N/A) Urgent (09:58 12/03/2016 Jaki LEE) (Ack 10:02 OSnell) (10:40 KWilliams R.N.) CT Sinus/Facial Bones w Cont (see bun and creat) Urgent (10:28 12/03/2016 Jaki LEE) (Ack 10:32 OSnell) (13:06 OSnell) (Cancelled: Change in patient bgonliipy74:06 OSnell) MEDICATION ORDERS: Phenergan IV 25 mg (HIGH ALERT MEDICATION, NOW) (03:11 12/03/2016 Elliott Ray) (3:28 TBowen R.N.) Phenergan IV 25 mg (HIGH ALERT MEDICATION, NOW) (06:47 12/03/2016 Elliott Ray) (6:57 CBradburn R.N.) Unasyn IV 1.5 gm/100mL (NOW) (17:00 12/03/2016 Jaki LEE) (19:26 TBowen R.N.) - (TYLENOL SUPPOSITORY 1 GM) (19:35 12/03/2016 Jaki LEE) (19:44 TBowen R.N.) Acetaminophen AR 650 mg (NOW) (19:37 12/03/2016 TBowen R.N. verbal order read back to Jaki LEE) (19:38 TBowmaryjane R.N.) Verbal order read back and verified IV FLUIDS: IV NS : initial bolus 1000 mL (1000 mL/hr), then none - for X1 (NOW) (03:11 12/03/2016 Elliott Ray) (3:28 TBowmaryjane R.N.) Benadryl IV 25 mg (NOW) (03:12 12/03/2016 Elliott Ray) (3:28 TBowmaryjane R.N.) Toradol IV 30 mg (NOW) (03:12 12/03/2016 Elliott Ray) (3:29 TBowmaryjane R.N.) Decadron IV 10 mg (NOW) (03:12 12/03/2016 Elliott Ray) (3:29 TBowmaryjane R.N.) Zofran IV 8 mg (NOW) (06:32 12/03/2016 Elliott Ray) (7:00 TBowmaryjane R.N.) IV NS : initial bolus 1000 mL (1000 mL/hr), then none - for X1 (NOW) (07:04 12/03/2016 Elliott Ray) (7:36 MWinterer R.N.) IV NS : initial bolus none -, then 250 mL/hr for 4h (NOW); Urgent (10:29 12/03/2016 Jaki LEE) (10:45 Vesta R.N.) Levaquin IV 750 mg/150 mL (NOW) (17:00 12/03/2016 Jaki LEE) (17:40 DWIGHTnecollin R.N.) LORazepam IV 0.5 mg + 0.5 mg iv (NOW) (19:07 12/03/2016 Jaki LEE) (19:17 TBowen R.N.) ORDER SHEET NOTES: [Electronically signed by Clau Chirinos R.N. (20:09 12/03/2016)] [Electronically signed by Gus Abdalla MD (22:50 12/03/2016)] [Electronically locked/signed by Clau Chirinos R.N. (20:09 12/03/2016)]
--- NOTE | 2016-12-03 04:23 | ED CLINICAL REPORT ---
Clinical Report - Physicians/Mid Levels [facility] [address] [place] [address] 12/03/2016 2:53 Patient: SUDHA BRIGGS Time Seen: 0305. Arrived- By private vehicle. Historian- patient. HISTORY OF PRESENT ILLNESS Chief Complaint: HEADACHE. Is still present. This started past week. It was gradual in onset and has been constant but is not gone now. Onset during rest. It is described as similar to previous headaches. Located in the frontal region. No neck pain. Not located in the facial region. At its maximum, severity described as severe. When seen in the E.D., severity described as severe. Modifying factors: relieved by nothing. Not worsened by anything. The patient has had photophobia, nausea and vomiting. Similar symptoms previously: None. Recent medical care: The patient was seen recently in a clinic. REVIEW OF SYSTEMS No skin rash. ROS NEGATIVE PER DR COTO. I am unable to ask the patient questions because of AMS. All systems otherwise negative, except as recorded above. PAST HISTORY See nurses notes. PCP: Adriana Nance ? Morbid obesity CAD with CABG DM with renal insufficienty Sinusitis - with enlarged ethmoid air cells on the L. Medications: Tramadol HCL Oral, 3x a day. Uloric Oral (Tablet 80 mg), daily. Vitamin B-12 Oral. ZyrTEC Allergy Oral (Tablet 10 mg) 1 tablet, daily. Albuterol Sulfate HFA Inhalation (Aerosol Solution 108 (90 Base) mcg/act) 2 puffs, 4x a day as needed. Amitriptyline HCl Oral (Tablet 10 mg), at bedtime. AmLODIPine Besylate Oral (Tablet 10 mg), daily. Aspirin Low Dose Oral (Tablet Chewable 81 mg) 1 tablet, daily. Atorvastatin Calcium Oral (Tablet 80 mg) 1 tablet, daily. Augmentin Oral (Tablet 875-125 mg) 1 tablet, 2x a day. Benzonatate Oral (Capsule 200 mg) 1 capsule, 3x a day as needed. Carvedilol Phosphate ER Oral. Cefdinir Oral (Capsule 300 mg) 1 capsule, 2x a day. DULoxetine HCl Oral (Capsule Delayed Release Particles 30 mg) 2 capsules. Flonase Nasal (Suspension 50 mcg/act) 2 sprays, daily. Gabapentin Oral 1200 mg, 3x a day. HumaLOG Subcutaneous (Solution 100 unit/mL) 20-30 units , before meals. Lantus Subcutaneous (Solution 100 unit/mL) 60 units, 2x a day. Lisinopril Oral 10 mg, 2x a day. Nitroglycerin Sublingual (Tablet Sublingual 0.4 mg), as needed. Armada 3 Oral. ProAir HFA Inhalation (Aerosol Solution 108 (90 Base) mcg/act), as needed. Ranitidine HCl Oral 150 mg, 2x a day. Allergies: Claritin. Definite Moderate(itching) (eyes get watery) Metoprolol Succinate. SOCIAL HISTORY Never smoker. No alcohol use or drug use. No recent travel. Is a local resident. ADDITIONAL NOTES The nursing notes have been reviewed. PHYSICAL EXAM Vital Signs: 12/03/2016 03:02 BP: 201/110. HR: 97. RR: 20. O2 saturation: 96%. Temp: 98.2 F. Pain level now: 10/10. Hypertensive. Oxygen saturation normal. Appearance: Alert. Patient in mild distress. Eyes: Pupils equal, round and reactive to light. Eyes normal inspection. (no papilledema. Normal appearing retinal vasculature.). ENT: Ears normal. Nose normal. Pharynx normal. Neck: Normal inspection. Neck supple. No meningeal signs. CVS: Normal heart rate and rhythm. Heart sounds normal. Pulses normal. Respiratory: No respiratory distress. Breath sounds normal. Abdomen: Soft and nontender. No organomegaly. Back: Normal inspection. Skin: Skin warm and dry. Normal skin color. No rash. Normal skin turgor. Extremities: Extremities exhibit normal ROM. No lower extremity edema. Neuro: Ruby Coma Scale: 14- eyes open to voice (3); best verbal response- oriented x 3 (5); best motor response- obeys commands (6). Oriented X 3. Alert. Mood/affect normal. Speech normal. Cranial nerves normal (as tested). No cerebellar findings. No motor deficit. No sensory deficit. LABS, X-RAYS, AND EKG EKG: No acute ischemia. Normal sinus rhythm. Rate: 81. Normal P waves. Normal DAISHA. Normal QRS complex. LVH. Left axis deviation. Normal ST and T waves, QT and QTc. The study has been interpreted contemporaneously by me. The study has been independently viewed by me. Artifact present. CT C-Spine: (PROCEDURE: CT CERVICAL SPINE W/O CONTRAST CLINICAL INDICATION: TRAUMA/INJURY TECHNIQUE: Noncontrast axial images with sagittal and coronal reformations. COMPARISON: None. FINDINGS: Normal alignment without fracture. Mild reversal of the normal cervical lordosis. Severe degenerative changes most prominent at C5-6 and C6-7. There is mild bilateral C5-6 and C6-7 foraminal and spinal stenosis. Paraspinal soft tissues are unremarkable. Severe left maxillary, ethmoid and sphenoid sinus disease. IMPRESSION: 1. Severe degenerative changes with foraminal and spinal stenosis 2. Reversal of normal cervical lordosis suggestive of muscular spasm 3. Results discussed with Dr. Coto). The study was independently viewed by me and interpreted by the radiologist. The study was discussed with the radiologist (via phone and pacs). CT Head: (PROCEDURE: CT HEAD WITHOUT CONTRAST INDICATION: TRAUMA/INJURY TECHNIQUE: Noncontrast axial images with sagittal and coronal reformations. COMPARISON: None. FINDINGS: Mild motion artifacts. Sulci and ventricular system are normal. There is no acute CVA, hemorrhage, mass or midline shift. There is no significant change in the complete opacification of the left frontal, ethmoid, maxillary and sphenoid sinuses with expansion of the minor right frontal and right ethmoid sinus disease. Mastoids are clear. ethmoid sinuses. IMPRESSION: 1. No acute intracranial abnormality 2. No significant change in the severe left-sided sinusitis with expansion of the ethmoid air cell suggestive of fungal sinusitis versus mucocele). The study was independently viewed by me and interpreted by the radiologist. The study was discussed with the radiologist (via phone and pacs). Laboratory Tests: CBC w Diff: (KWABENA: 12/03/2016 08:30) ( MsgRcvd 12/03/2016 10:06) Final results Test Result Flag Units (Reference) WHITE BLOOD COUNT 25.4 *H K/uL (4.5-11.5) CRITICAL RESULTS CALLEDCalled to DEEPTI MAI RN 12/03/16 0910Were 2 patient identifiers used? YESWas the result read back? YES RED BLOOD COUNT 5.09 M/uL (4.50-5.90) HEMOGLOBIN 14.0 gm/dL (13.5-17.5) HEMATOCRIT 44.3 % (41.0-53.0) MEAN CELL VOLUME 87 fL (80-100) MEAN CORPUSCULAR HGB 28 pg (26-34) MEAN CORPUSCULAR HGB CONC 32 g/dL (31-37) RED CELL DISTRIBUTION WIDTH 16.0 H % (11.6-14.8) PLATELET COUNT 359 K/uL (150-400) POLY % 90 H % (50-75) BAND % 5 % (0-8) LYMPH 3 L % (25-40) MONO 2 L % (3-14) EOSINOPHIL % 0 % (0-4) BASOPHIL % 0 % (0-2) METAMYELOCYTE % 0 % (0-1) MYELOCYTE 0 % (0-1) OTHER CELL TYPE 0 RBC MORPHOLOGY NORMAL RBC POP PT with INR: (KWABENA: 12/03/2016 08:30) ( [facility] 12/03/2016 09:31) Final results Test Result Flag Units (Reference) INR 0.9 (0.8-1.2) Low Intensity Therapy: INR 1.5-2.0 PT range 18.5-23.1Mod.Intensity Therapy: INR 2.0-3.0 PT range 23.1-31.5High Intensity Therapy: INR 2.5-3.5 PT range 27.4-35.5High Intensity Therapy 2: INR 3.0-4.0 PT range 31.5-39.3 APTT < 21 L SECONDS (24-34) Lactate, Serum: (KWABENA: 12/03/2016 10:30) ( [facility] 12/03/2016 11:14) Final results Test Result Flag Units (Reference) LACTIC ACID 1.6 mmol/L (0.4-2.0) [id number]: (KWABENA: 12/03/2016 10:30) ( [facility] 12/03/2016 11:28) Final results Test Result Flag Units (Reference) PROCALCITONIN <0.5 ng/mL (0-0.5) PCT Concentration: Interpretation : Risk/option for action PCT <=0.5 ng/mL : Systemic : Low risk forinfection(sepsis): progression to severeis not likely. : systemic infection.Local bacterial : CAUTION-PCT levelsinfection is : below 0.5 ng/mL do notpossible. : exclude an infection,because localizedinfections (withoutsystemic signs) may beassociated with suchlow levels. If PCT ismeasured very earlyafter a bacterialchallenge (usually <6hours), these valuesmay still be low. Inthis case PCT shouldbe re-assessed 6-24hours later. PCT >0.5 and : Systemic infection: Moderate risk for<= 2 ng/mL : (sepsis) is : progression to severepossible, but : systemic infection.other conditions : The patient should beare known to : closely monitoredelevate PCT. : both clinically andby re-assessing PCTwithin 6-24 hours. PCT > 2 ng/mL : Systemic infection: High risk for(sepsis) is likely: progression to severeunless other : systemic infection.causes are known. : PCT >= 10 ng/mL : Important systemic: High likelihood ofinflammatory : severe sepsis orresponse, almost : septic shock.exclusively due to:severe bacterial :sepsis or septic :shock. : Urine Drug Screen: (KWABENA: 12/03/2016 10:30) ( MsgRcvd 12/03/2016 11:01) Final results Test Result Flag Units (Reference) AMPHETAMINE/METHAMPHETAMINE NEGATIVE (NEGATIVE) BARBITURATE NEGATIVE (NEGATIVE) BENZODIAZEPINE NEGATIVE (NEGATIVE) CANNABINOID NEGATIVE (NEGATIVE) COCAINE NEGATIVE (NEGATIVE) ECSTASY NEGATIVE (NEGATIVE) METHADONE NEGATIVE (NEGATIVE) OPIATE NEGATIVE (NEGATIVE) The urine drug screen is a qualitative screening test fordrug overdose and abuse. All screen results should beconsidered as presumptive.Drugs screened for are as follows:BenzodiazepinesCocaineAmphetamines/MetamphetaminesTHC (Tetrahydrocannabinol)OpiatesBarbituratesEcstasyMethadonePositive results are unconfirmed. For confirmation, notifythe lab for the specimen to be sent to the reference lab.All confirmations must be performed by a differentmethodology.The ingestion of natural herbal and plant productscontaining Ephedra/Ephedra metabolites can produce in urineone or more substances capable of cross reacting withamphetamine/methamphetamine immunoassays. These testsprovide a preliminary result only. A more specificalternative chemical method must be used to obtain aconfirmed analytical result. CMP: (KWABENA: 12/03/2016 08:30) ( MsgRcvd 12/03/2016 09:03) Final results Test Result Flag Units (Reference) GLUCOSE 283 H mg/dL (70-110) BUN 39 H mg/dL (7-18) CREATININE 2.0 H mg/dL (0.6-1.3) Estimated GFR 37.62 mL/min Estimated GFR- 45.60 mL/min Note: Persistent reduction over 3 months in eGFR<60 mL/min/1.73 m2 defines CKD. Patients with eGFR values>=60 mL/min/1.73 m2 may also have CKD if evidence ofpersistent proteinuria. Additional information may be foundat www.kidney.org. SODIUM 144 mmol/L (136-145) POTASSIUM 5.5 H mmol/L (3.5-5.1) CHLORIDE 106 mmol/L (98-107) CARBON DIOXIDE 27 mmol/L (21-32) CALCIUM 9.1 mg/dL (8.5-10.1) TOTAL PROTEIN 7.4 g/dL (6.4-8.2) ALBUMIN 3.2 L g/dL (3.3-5.0) BILIRUBIN, TOTAL 0.5 mg/dL (0.0-1.0) ALKALINE PHOSPHATASE 102 U/L (46-116) AST (SGOT) 15 U/L (15-37) ALT (SGPT) 32 U/L (12-78) TROPONIN I <0.05 L ng/mL (0.00-1.5) TROPONIN REFERENCE RANGE:<0.1 NEGATIVE0.1-1.5 INDETERMINANT>1.5 POSITIVE . PROGRESS AND PROCEDURES Course of Care: he patient is a pleasant 51-year-old male with past medical history significant for sinus problems as well as hypertension and migraines. Patient with frontal headache as well as nausea and vomiting. Patient will be treated with medications for the headache and reevaluated. Elevated blood pressure at this time likely due to patient's discomfort. Patient is also noted to be actively vomiting here in the emergency department. Vomitus appears to be nonbloody nonbilious. Patient is agreeable to the treatment plan. Discussed with the patient his workup here in the emergency department. Patient reports that he has in no pain. Patient has been sleeping and in no acute distress. The side rails on the bed have noted to be placed on both sides. Patient had driven himself to the emergency department. Patient is unable to find a ride home at this time and will be monitored further here in the emergency department. Discharge instructions have been placed. Patient was reevaluated again and found to be resting in bed and in no acute distress. No other acute abnormalities noted. During patient's stay here in the emergency department a loud noise was heard from patient's room. Patient was found on the floor. Patient reported trying to find his vomit bag. The left side railing on the bed and was now up. Unclear how this had happened. Because of the patient's weight, we had contacted fire department to help with lifting the patient back up to bed. CT scan of the patient's head is been ordered for evaluation of potential intracranial abnormalitygiven the patient's recent fall. No other areas of injury noted on patient's examination. Patient is reporting nausea.medication as been ordered for the patient's nausea. Patient is currently not reporting any pain or injury at this time including pain/injury to the head, neck, chest, abdomen, pelvis, or extremities. EMS helped with assist patient into the bed. Further nausea medication provided. Patient with nausea and vomiting after being moved. Patient is sleepy otherwise patient has a negative neuro exam. 09:28 12/03/16. Assumed care from Dr Coto. Independent H&P/ Rm 09:56 12/03/16. Nadiya - Discussed with hospitalist. Given prior failure of resolution of infection with hospitalization and IV antibiotics, he was reluctant to admit. I have paged the gift consultant ENT Dr Peterson 10:24 12/03/16. Dr Peterson-ENT if Plain CT films concerning but ambiguous. CT with contrast or MRI recommended. He would be willing to consult in person if Mr. Briggs were admitted here. 10:50 12/03/16. Dr. Solano states, MR indicated but not technically possible since 369 lb with 350 lb table limit 11:27 12/03/16. Discussed again with hospitalist Dr Hearn. Please try to admit to [facility]. 11:36 12/03/16. 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 350 lb limit MRI Prov, [facility] [place] has 400 lb MRI 12:11 12/03/16. More alert, follows commands. Answers still quite slow. Does not give intelligible answer to who is your Dr? Does know year. Lactate and procalcitonin are negative. 12:24 12/03/16. Call to Luis E Mantilla. 12:45 12/03/16. Madelin Mantilla - NO transfer for admit - May transfer for MRI but no admit 12:55 12/03/16. Nadiya will call Kristen. Pt a bit more awake. 14:20 12/03/16. Awaiting call from transfer center at [facility] 14:31 12/03/16. [facility] will call Dr Peterson. 15:01 12/03/16. Yudith #2 ; Dr Peterson 17:21 12/03/16. Dr Mensah unable to get LP with three blind attempts and with several attempts with the C arm. Dr Peterson is here to see the patient My very brief [facility] orders are completed. I have ordered Unasyn and Levaquin 17:23 12/03/16. Summary: Mr. Briggs is complex, I believe his headache is most likely from sinusitis which has not responded to previous hospitalization and antiboitics His altered mental status is due to his phenergan. He was described by Dr. Coto as at his mental status base line when he presented. When I first examined the patient he was arousable to moderate vocal stimuli but was almost at a level of light procedural sedation. There were lengthy and numerous discussions on where his care should be initiated. Ultimately, it was decided to have initial care at [facility] with possible later transfer to [facility] for definitive operative care. Thank you to Vanessa Hearn, Dr Peterson and Dr Mensah. 18:38 12/03/16. Vanessa Hearn and Kristen having examined/re examined the patient following the LP attempt are concerned that he is at significant risk of worsening. His temp is now 102. Dr Peterson has discussed the patient with Dr Queen ENT [facility]. It is my understanding that Mr. Briggs will be accepted for transfer but I will need to speak with an admitting attending. I await another call from Yudith of the transfer center. 19:00 12/03/16. Slow response to my questions. Answers the nurses questions slowly. Rhythmic movements of LUE. Might be a focal seizure but that would not fit well with the clinical picuture Page to Dr Hearn. 19:19 12/03/16. L arm movement stopped following 0.5 mg Lorazepam. Good RR and O2 Sat 95% ALS ground coming. Temp 103. Rectal Tylenol ordered. Transfer forms completed. Per Yudith the transfer Center RN Dr Rajan is the accepting ED attending and Dr Queen is the ENT attending who has agreed to assume the patients. Care. 22:44 12/03/16. After the time of transfer I re confirmed with Dr Coto who is [facility] oncoming ED physician that Mr. Briggs was at his usual mental status when seen initially last evening. He mental status did not change until after he was medicated with the Phenergan. Critical care performed (120 minutes). Time is exclusive of separately billable procedures. Time includes: direct patient care, patient reassessment, coordination of patient care, interpretation of data, review of patient's medical records, medical consultation and documentation of patient care- see progress notes. CLINICAL IMPRESSION 12/03/2016 03:02 BP: 201/110. HR: 97. RR: 20. O2 saturation: 96%. Temp: 98.2 F. Pain level now: 05/23. Acute headache (frontal). Blood pressure normal. Oxygen saturation normal. Uncontrolled essential hypertension. ALTERED MENTAL STATUS HEADACHE Left BRADFORD SINUSITIS with probable bone erosion LUE MOVEMENT - POSSIBLE FOCAL SEIZURE. CAD - CABG DM - WITH RENAL INSUFFICIENCY. INSTRUCTIONS Your Current Medications: CONTINUE TAKING THE FOLLOWING MEDICATIONS: Aspirin Low Dose Oral : Tablet Chewable 81 mg, 1 tablet daily. Atorvastatin Calcium Oral : Tablet 80 mg, 1 tablet daily. Augmentin Oral : Tablet 875-125 mg, 1 tablet 2x a day. Benzonatate Oral : Capsule 200 mg, 1 capsule 3x a day, prn. Carvedilol Phosphate ER Oral. Cefdinir Oral : Capsule 300 mg, 1 capsule 2x a day. DULoxetine HCl Oral : Capsule Delayed Release Particles 30 mg, 2 capsules. Flonase Nasal : Suspension 50 mcg/act, 2 sprays daily. Gabapentin Oral : 1200 mg 3x a day. HumaLOG Subcutaneous : Solution 100 unit/mL, 20-30 units before meals. Lantus Subcutaneous : Solution 100 unit/mL, 60 units 2x a day. Lisinopril Oral : 10 mg 2x a day. Nitroglycerin Sublingual : Tablet Sublingual 0.4 mg, prn. Armada 3 Oral. ProAir HFA Inhalation : Aerosol Solution 108 (90 Base) mcg/act, prn. Ranitidine HCl Oral : 150 mg 2x a day. Tramadol HCL Oral : 3x a day. Uloric Oral : Tablet 80 mg, daily. Vitamin B-12 Oral. ZyrTEC Allergy Oral : Tablet 10 mg, 1 tablet daily. CONTINUE TAKING THE FOLLOWING MEDICATIONS UNTIL YOU CHECK WITH YOUR PHYSICIAN: Albuterol Sulfate HFA Inhalation : Aerosol Solution 108 (90 Base) mcg/act, 2 puffs 4x a day, prn. Amitriptyline HCl Oral : Tablet 10 mg, at bedtime. AmLODIPine Besylate Oral : Tablet 10 mg, daily. (Electronically signed by Gus Abdalla MD 12/03/2016 22:50)
--- NOTE | 2016-12-03 04:23 | ED ORDER SUMMARY ---
..... Patient: SUDHA BRIGGS OrderSheet [facility] VisitID: [id number] [address] [place] [address] 51y, M Registration Date/Time: 12/03/2016 ORDER SHEET Weight: 167.8 kg Allergies: Claritin, Metoprolol Succinate GENERAL ORDERS: CT Head wo Cont Urgent (06:32 12/03/2016 Elliott Ray) (Ack 6:35 IJurca ER Tech1) (7:34 MWinterer R.N.) CT Cervical Spine wo Cont Urgent (06:32 12/03/2016 Elliott Ray) (Ack 6:35 IJurca ER Tech1) (7:34 MWinterer R.N.) Sediment Remediation Consultant (Continuous) (fall, head injury, possible syncope) (06:49 12/03/2016 Elliott Ray) (Ack 6:51 IJurca ER Tech1) (6:55 TBowen R.N.) CBC w Diff Urgent (06:49 12/03/2016 Elliott Ray) (Ack 6:51 IJurca ER Tech1) (8:53 KWilliams R.N.) CMP Urgent (06:49 12/03/2016 Elliott Ray) (Ack 6:51 IJurca ER Tech1) (8:53 KWilliams R.N.) Troponin-I Urgent (06:49 12/03/2016 Elliott Ray) (Ack 6:51 IJurca ER Tech1) (8:53 KWilliams R.N.) PT with INR Urgent (06:49 12/03/2016 Elliott Ray) (Ack 6:51 DAMEONurca ER Tech1) (8:53 KWilliams R.N.) PTT Urgent (06:49 12/03/2016 Elliott Ray) (Ack 6:51 DAMEONurca ER Tech1) (8:53 KWilliams R.N.) EKG - ER Stat (06:49 12/03/2016 Elliott Ray) (Ack 6:51 IJurca ER Tech1) (6:55 IJurca ER Tech1) Pulse oximeter (06:49 12/03/2016 Elliott Ray) (Ack 6:51 IJurca ER Tech1) (6:55 TBowen R.N.) Urine Drug Screen Urgent (09:55 12/03/2016 Jaki LEE) (Ack 9:59 OSnell) (10:40 KWilliams R.N.) PCT (Procalcitonin) Urgent (09:56 12/03/2016 Jaki LEE) (Ack 9:59 OSnell) (10:15 OSnell) Lactate, Serum Urgent (09:56 12/03/2016 Jaki LEE) (Ack 9:59 OSnell) (10:40 KWilliams R.N.) Blood Culture (No) (N/A) Urgent (09:58 12/03/2016 Jaki LEE) (Ack 10:02 OSnell) (10:40 KWilliams R.N.) CT Sinus/Facial Bones w Cont (see bun and creat) Urgent (10:28 12/03/2016 Jaki LEE) (Ack 10:32 OSnell) (13:06 OSnell) (Cancelled: Change in patient filzmoxtp35:06 OSnell) MEDICATION ORDERS: Phenergan IV 25 mg (HIGH ALERT MEDICATION, NOW) (03:11 12/03/2016 Elliott Ray) (3:28 TBowen R.N.) Phenergan IV 25 mg (HIGH ALERT MEDICATION, NOW) (06:47 12/03/2016 Elliott Ray) (6:57 CBradburn R.N.) Unasyn IV 1.5 gm/100mL (NOW) (17:00 12/03/2016 Jaki LEE) (19:26 TBowen R.N.) - (TYLENOL SUPPOSITORY 1 GM) (19:35 12/03/2016 Jaki LEE) (19:44 TBowen R.N.) Acetaminophen [place] 650 mg (NOW) (19:37 12/03/2016 TBowen R.N. verbal order read back to Jaki LEE) (19:38 TBowmaryjane R.N.) Verbal order read back and verified IV FLUIDS: IV NS : initial bolus 1000 mL (1000 mL/hr), then none - for X1 (NOW) (03:11 12/03/2016 Elliott Ray) (3:28 TBowmaryjane R.N.) Benadryl IV 25 mg (NOW) (03:12 12/03/2016 Elliott Ray) (3:28 TBowmaryjane R.N.) Toradol IV 30 mg (NOW) (03:12 12/03/2016 Elliott Ray) (3:29 TBowmaryjane R.N.) Decadron IV 10 mg (NOW) (03:12 12/03/2016 Elliott Ray) (3:29 TBowamryjane R.N.) Zofran IV 8 mg (NOW) (06:32 12/03/2016 Elliott Ray) (7:00 TBowmaryjane R.N.) IV NS : initial bolus 1000 mL (1000 mL/hr), then none - for X1 (NOW) (07:04 12/03/2016 Elliott Ray) (7:36 MWinterer R.N.) IV NS : initial bolus none -, then 250 mL/hr for 4h (NOW); Urgent (10:29 12/03/2016 Jaki LEE) (10:45 Vesta R.N.) Levaquin IV 750 mg/150 mL (NOW) (17:00 12/03/2016 Jaki LEE) (17:40 DWIGHTnecollin R.N.) LORazepam IV 0.5 mg + 0.5 mg iv (NOW) (19:07 12/03/2016 Jaki LEE) (19:17 TBowen R.N.) ORDER SHEET NOTES: [Electronically signed by Clau Chirinos R.N. (20:09 12/03/2016)] [Electronically signed by Gus Abdalla MD (22:50 12/03/2016)] [Electronically locked/signed by Clau Chirinos R.N. (20:09 12/03/2016)]
--- NOTE | 2016-12-03 04:23 | ED NURSING NOTES ---
Clinical Report - Nurses [facility] [address] [place] [address] 12/03/2016 2:53 [id number] Triage time 03:02. Acuity: LEVEL 3. Chief Complaint: HEADACHE. LIZ COMA SCORE: Liz Coma Scale: 15- eyes open spontaneously (4); best verbal response- oriented x 4 (5); best motor response- obeys commands (6). --03:05 Jocelin R.N. 03:02 12/03/16. BP: 201/110. HR: 97. RR: 20. O2 saturation: 96%. Temp: 98.2 F. Pain level now: 05/23. --03:05 Jocelin R.N. Weight: 167.8 kg. Height/Length: 71 inches. BMI: 51.6. --03:04 ClauB, R.N. Medications Albuterol Sulfate HFA Inhalation (Aerosol Solution 108 (90 Base) mcg/act) 2 puffs, 4x a day as needed. Amitriptyline HCl Oral (Tablet 10 mg), at bedtime. AmLODIPine Besylate Oral (Tablet 10 mg), daily. Aspirin Low Dose Oral (Tablet Chewable 81 mg) 1 tablet, daily. Atorvastatin Calcium Oral (Tablet 80 mg) 1 tablet, daily. Augmentin Oral (Tablet 875-125 mg) 1 tablet, 2x a day. Benzonatate Oral (Capsule 200 mg) 1 capsule, 3x a day as needed. Carvedilol Phosphate ER Oral. Cefdinir Oral (Capsule 300 mg) 1 capsule, 2x a day. DULoxetine HCl Oral (Capsule Delayed Release Particles 30 mg) 2 capsules. Flonase Nasal (Suspension 50 mcg/act) 2 sprays, daily. Gabapentin Oral 1200 mg, 3x a day. HumaLOG Subcutaneous (Solution 100 unit/mL) 20-30 units , before meals. Lantus Subcutaneous (Solution 100 unit/mL) 60 units, 2x a day. Lisinopril Oral 10 mg, 2x a day. Nitroglycerin Sublingual (Tablet Sublingual 0.4 mg), as needed. [place] 3 Oral. ProAir HFA Inhalation (Aerosol Solution 108 (90 Base) mcg/act), as needed. Ranitidine HCl Oral 150 mg, 2x a day. --03:03 Sumit Monreal. Tramadol HCL Oral, 3x a day. Uloric Oral (Tablet 80 mg), daily. Vitamin B-12 Oral. ZyrTEC Allergy Oral (Tablet 10 mg) 1 tablet, daily. --03:03 Sumit Monreal. Allergies Claritin. Definite Moderate(itching) (eyes get watery) Metoprolol Succinate. --03:03 Sumit Monreal. History Arrived by private vehicle. Historian: patient. This started yesterday. He has had nausea and vomiting. 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 PAST MEDICAL HX: Immunizations: up-to-date. SOCIAL HX: Never smoker. No alcohol use or drug use. No infectious disease exposure. FALL RISK ASSESSMENT: Fall risk assessment completed. No fall risk identified. NUTRITIONAL RISK ASSESSMENT: The nutritional risk assessment revealed no deficiencies. FUNCTIONAL ASSESSMENT: Functional assessment: no impairments noted. LEARNING NEEDS ASSESSMENT: The learning needs assessment revealed no barriers. SKIN INTEGRITY ASSESSMENT: Skin integrity risk assessment completed. No skin integrity risk identified. --03:05 Sumit Monreal. PROBLEMS: Sinusitis. Conjunctivitis. Dyspnea. Chest Pain. Renal Failure. Anxiety Reaction. Hyperlipidemia. Gastroesophageal Reflux. Environmental Allergies. Food Poisoning. Rib Fracture. Knee Injury. Pedal Edema. Coronary Artery Disease. Hypercholesterolemia. Dehydration. Hyperglycemia. Vomiting. Immunizations. Hypertension. Heart Disease. Diabetes Mellitus. --03:04 Sumit Monreal. ADDITIONAL SURGERIES: Coronary Artery Bypass Graft. --03:04 Sumit Monreal. Interventions ID band on patient. To treatment room. --03:05 Sumit Monreal. PHYSICAL ASSESSMENT Ambulatory to room. GENERAL / NEURO / PSYCH: Alert. Oriented X 4. Appears anxious. Speech within normal limits. HEENT: No facial asymmetry noted. Photophobia present. Pupils equal, round and reactive to light. RESPIRATORY: Respirations not labored. Breath sounds within normal limits. CVS: Capillary refill less than 2 seconds. GI / : The patient has had nausea. Emesis noted. Abdomen nontender. SKIN: Skin is warm and dry. --03:06 Stacy Monreal NURSING PROGRESS NOTES 03:06 12/03/2016 Site #1 started via IV in the right forearm with an 20g angiocath, with aseptic technique and good blood return; one attempt. Blood drawn: rainbow set. Labeled in the presence of the patient and sent to the lab. Saline lock flushed with 10 mL saline. --03: Stacy Monreal Patient identifiers checked. Call light placed in reach. Side rails up x 1. Bed placed in lowest position. Brakes of bed on. --03: Stacy Monreal 03:23 12/03/2016 Benadryl (DiphenhydrAMINE HCl) IVP 25 mg given over 2 minute(s) via site #1. Allergies verified, confirmed 5 rights and sedative warning given to the patient. IV patency established. IV site checked: no pain, redness, or swelling. IV flushed thoroughly pre- and post-medication administration. IVP given by RN. --03: Stacy Monreal 03:24 12/03/2016 Toradol IVP 30 mg given over 2 minute(s) via site #1. Allergies verified and confirmed 5 rights. IV patency established. IV site checked: no pain, redness, or swelling. IV flushed thoroughly pre- and post-medication administration. IVP given by RN. --03: Stacy Monreal 03:12/03/2016 Started bag #1 1000 mL IV Fluids IV NS (Saline); at 999 mL/hr over 1 hour(s) via site #1 via IV pump. Allergies verified and confirmed 5 rights. IV patency established. IV site checked: no pain, redness, or swelling. IV flushed thoroughly pre- and post-medication administration. --03: Stacy Monreal 03:12/03/2016 PHENERGAN (Promethazine HCl) IVP 25 mg given over 5 minute(s) via site #1. Allergies verified and confirmed 5 rights. IV patency established. IV site checked: no pain, redness, or swelling. IV flushed thoroughly pre- and post-medication administration. IVP given by RN. --03: Stacy Monreal 03:12/03/2016 Decadron IVP 10 mg given over 2 minute(s) via site #1. Allergies verified and confirmed 5 rights. IV patency established. IV site checked: no pain, redness, or swelling. IV flushed thoroughly pre- and post-medication administration. IVP given by RN. --03:29 Stacy Monreal 04:28 12/03/2016 IV Fluids IV NS Discontinued: bag #1 completed. Total amount infused: 1000 mL. IV patency established. IV site checked: no pain, redness, or swelling. IV flushed thoroughly. --04:28 Kortney Guevara R.N. 04:43 12/03/16. BP: 146/101. HR: 82. RR: 18. O2 saturation: 97%. Temp: deferred. Pain level now: 0/10. --04:43 Stacy Monreal ( pt has no one to drive him home at this time and he drove himself here, pt unable to drive at this time, will allow pt to stay here until he able to drive home.). --04:45 Stacy Monreal 06:51 12/03/16. BP: 172/96. HR: 82. RR: 18. O2 saturation: 95%. Temp: deferred. Pain level now: 0/10. --06:52 Stacy Monreal ( heard a large crash and pt was lying on the floor, pt has no injuries seen , pt denies any pain, pt is vomiting, MD at bedside, pt assisted back to bed). --06:54 Stacy Monreal Finger stick glucose: 232; performed by tech. --06:55 Stacy Monreal 06:35 12/03/2016 Zofran (Ondansetron HCl) IVP 8 mg given over 1 minute(s) via site #1. Allergies verified and confirmed 5 rights. IV patency established. IV site checked: no pain, redness, or swelling. IV flushed thoroughly pre- and post-medication administration. IVP given by RN (given by Zoila DURHAM). --07:00 Stacy Monreal 06:52 12/03/2016 PHENERGAN (Promethazine HCl) IVP 25 mg given over 5 minute(s) via site #1. Allergies verified and confirmed 5 rights. IV patency established. IV site checked: no pain, redness, or swelling. IV flushed thoroughly pre- and post-medication administration. IVP given by RN. --06:57 Kortney Guevara R.N. nurse emergency, pulse oximeter and NIBP monitor placed on patient. Head of bed elevated 45 degrees. --06:59 Stacy Monreal Call light placed in reach. Side rails up x 2. Bed placed in lowest position. Brakes of bed on. --06:59 Stacy Monreal 07:36 12/03/2016 Started bag #1 1000 mL IV Fluids IV NS (Saline); at 1000 mL/hr over 1 hour(s) via site #1. Allergies verified and confirmed 5 rights. IV patency established. IV site checked: no pain, redness, or swelling. IV flushed thoroughly pre- and post-medication administration. --07:36 Brenda Fischer R.N. 07:38 12/03/16. BP: 166/104. HR: 74. RR: 18. O2 saturation: 100% on nasal cannula at 2 liters/minute. --07:38 Brenda Fischer R.N. 07:15. Patient transported to [place] by stretcher with tech. (transported assisted by x2 RNs and Tableau Lead.). --07:43 Liz Malone R.N. 07:37. Patient returned from radiology by stretcher with nurse. (transport assited by x2 rns.). --07:44 Liz Malone R.N. Checked patient name and birthdate: patient confirmed. Blood samples drawn from the left antecubital space by nurse: malina philippe (ultrasound guidance x 15 min). --08:54 Stuart Cosme R.N. ( Pt. needs to urinate. Assisted pt to sitting in bed. Pt. is unsteady and not able to stand.). --09:02 Liz Malone R.N. 09:02 12/03/16. BP: 162/103. HR: 80. RR: 20. O2 saturation: 100%. --09:02 Liz Malone R.N. 08:40 12/03/2016 IV Fluids IV NS Discontinued: bag #2 infused. Total amount infused: 1000 mL. IV patency established. IV site checked: no pain, redness, or swelling. IV flushed thoroughly. --09:04 Liz Malone R.N. ( changed pt position in bed. Assisted by fire department.). --09:15 Liz Malone R.N. Critical value relayed to ED by petroleum refinery laborer. Critical value received by Liz Hardy WBC: 25.4. Critical value read back. Verified lab result and patient ID. Patient ID band checked for patient name, birthdate and medical record number. --09:19 Liz Malone R.N. ( pt. moved to room directly across nurses stations.). --09:50 Liz Malone R.N. 10:04 12/03/16. BP: 170/92. HR: 80. RR: 22. O2 saturation: 96% on nasal cannula at 3 liters/minute. --10:05 Liz Malone R.N. ( pt. appears sleepy. Will not answer questioning and has slurred speech. Provider aware. No new orders at this time.). --10:05 Liz Malone R.N. 09:45. Patient hygiene performed: received partial bath. Patient is incontinent of urine. Changed patient gown, linens, incontinence pads and diaper. cleaned up emesis. --10:08 Stuart Cosme R.N. 10:28 12/03/2016 Site #2 started via IV in the left upper arm with an 18g angiocath, with aseptic technique and good blood return; one attempt. Blood drawn: rainbow set and cultures x1. Labeled in the presence of the patient and sent to the lab. Saline lock flushed with 10 mL saline (ultrasound guidance x 20 minutes. lactate drawn). --10:38 Stuart Cosme R.N. 14 fr cárdenas catheter. Reason for indwelling catheter: patient's decreased level of consciousness. During procedure hand hygiene observed and sterile equipment and aseptic technique used. Return of 1000 mL yellow-colored clear urine; odor is normal; attached to bedside drainage bag positioned below the bladder. It was a complicated placement. He tolerated procedure well. Patient ID band checked for patient name and birthdate: patient confirmed. Instructions provided to collect clean catch urine and patient verbalized understanding. Catheterized urine collected with return of yellow-colored clear urine; odor is normal; sample sent to lab for urinalysis, culture and drug screen. Specimen labeled in the presence of the patient. ( repositioned x4 RNs). --10:40 Stuart Cosme R.N. 10:45 12/03/2016 Started bag #3 1000 mL IV Fluids IV NS (Saline); at 250 mL/hr over 4 hour(s) via site #2 via IV pump. Allergies verified and confirmed 5 rights. IV patency established. IV site checked: no pain, redness, or swelling. IV flushed thoroughly pre- and post-medication administration. --10:45 Liz Malone R.N. 10:54 12/03/16. BP: 165/99. HR: 81. RR: 14. O2 saturation: 98%. --10:55 Stuart Cosme R.N. 10:56 12/03/16. Temp: 98.2 F. --10:56 Liz Malone R.N. ( cleaned pt of emesis. Lab at the bed for blood draw.). --11:41 Liz Malone R.N. 12:08 12/03/16. BP: 162/62. HR: 88. RR: 18. O2 saturation: 97%. --12:08 Liz Malone R.N. ( pt. is alert but remains confused and has slurred speech.). --12:09 Liz Malone R.N. ( At patient bedside, patient had started to grab his IV chords, O2 cords and vital signs cords. I cleaned up patient, he seemed to have emesis on his johnson and chest area. Also took vital signs). --13:25 Danny Teresa 13:19 12/03/16. BP: 191/84 (large adult cuff) taken on the left arm, via an automated monitor, while lying. HR: 84. RR: 20. O2 saturation: 96% at 3 liters/minute. Temp: 99.6 F (oral). --13:25 Teresa Delgado 13:15 12/03/2016 Site #2 removed. Catheter intact. Manual pressure and bandage applied (pt pulled out IV site). --13:30 Brenda Fischer R.N. ( Pt. has slurred speech and appears sleepy.). --14:15 Liz Malone R.N. 14:13 12/03/16. BP: 197/86. HR: 76. RR: 20. O2 saturation: 97%. --14:15 Liz Malone R.N. 14:42 12/03/2016 IV Fluids IV NS Discontinued: bag #3 infused. Total amount infused: 1000 mL. IV patency established. IV site checked: no pain, redness, or swelling. IV flushed thoroughly. --14:42 Brenda Fischer R.N. 15:36 12/03/16. BP: 218/93. HR: 86. RR: 24. O2 saturation: 97%. --15:36 Liz Malone R.N. ( Dr. Mensah in room with pt. for LP.). --15:36 Liz Malone R.N. LUMBAR PUNCTURE: Assisted by a tech. --16:27 Teresa Delgado ( Surgical oncall team called in for assist with LP.). --16:28 Liz Malone R.N. 16:32 12/03/16. BP: 219/99. HR: 88. RR: 24. O2 saturation: 97%. --16:33 Liz Malone R.N. ( Pt. transported to CDU with OR team for LP.). --16:48 Liz Malone R.N. ( pt. remains in CDU. Continued monitoring by surgical team post LP.). --17:18 Liz Malone R.N. Patient returned by stretcher with nurse and tech. (pt. return from CDU. Remains in supine position post LP.). --17:23 Liz Malone R.N. ( Dr. Peterson at the bedside consulting with patient.). --17:26 Kira, Liz, R.N. ( attempt to call report. CCU RN to call back.). --17:27 Liz Malone R.N. 17:40 12/03/2016 Started 750 mg of Levaquin (Levofloxacin) IVPB in bag #1 150 mL; at 100 mL/hr over 90 minute(s) via site #1 via IV pump. Allergies verified and confirmed 5 rights. IV patency established. IV site checked: no pain, redness, or swelling. IV flushed thoroughly pre- and post-medication administration. --17:40 Anali Young R.N. 16:32 12/03/16. Temp: 102 F. Additional comments: provider notified. No new orders received. . --18:16 Liz Malone R.N. 18:57 12/03/16. BP: 170/98. HR: 82. RR: 26. O2 saturation: 97%. --18:59 Liz Malone R.N. ( pt. states he is at the hospital.). --18:59 Liz Malone R.N. 18:55 12/03/2016 Site #3 started via IV using a Midline catheter in the left with an 18g angiocath using 1% intra-dermal lidocaine, with aseptic technique and good blood return; one attempt. Saline lock flushed with 10 mL saline (left cephalic midline 18g 10cm placed with ultrasound guidance and 2nd RN x45 minutes). --19:20 Stuart Cosme R.N. 19:09 12/03/2016 Levaquin IVPB Discontinued: bag #1 infused. Total amount infused: 150 mL. IV patency established. IV site checked: no pain, redness, or swelling. IV flushed thoroughly. --19:09 Yudith Lockwood R.N. 19:17 12/03/2016 Lorazepam (LORazepam) IVP 0.5 mg given over 2 minute(s) via site #1. Allergies verified, confirmed 5 rights and sedative warning given to the patient. IV patency established. IV site checked: no pain, redness, or swelling. IV flushed thoroughly pre- and post-medication administration. IVP given by RN. --19:17 Stacy Monreal Care transferred and report given (to HERMINIO Olguin). --19:20 Liz Malone R.N. Reassessment after medication administered. He is sleeping and has had no adverse reaction. --19:25 Stacy Monreal 19:26 12/03/2016 Started 1.5 gm of Unasyn (Ampicillin-Sulbactam Sodium) IVPB; at 162 mL/hr over 20 minute(s) via site #3 via IV pump. Allergies verified and confirmed 5 rights. IV patency established. IV site checked: no pain, redness, or swelling. IV flushed thoroughly pre- and post-medication administration. --19:26 Stacy Monreal 19:25 12/03/16. BP: 192/80. HR: 78. RR: 20. O2 saturation: 96% on face mask at 10 liters/minute. Temp: deferred. Pain level now: 0/10. --19:26 Stacy Monreal Patient identifiers checked. Side rails up x 2. Bed placed in lowest position. Brakes of bed on. --19:26 Stacy Monreal 19:38 12/03/2016 Acetaminophen GA 650 mg (NOW) was refused by duplicte order. Clau Chirinos --19:38 Stacy Monreal 19:43 12/03/2016 Tylenol GA 1000 mg given. Allergies verified and confirmed 5 rights. --19:44 Stacy Monreal ( EMS here for transport to [facility]). --19:45 Stacy Monreal Intake & Output Emesis output: 300. --03:07 Stacy Monreal Emesis output: 50 mL; return noted as green. --10:22 Liz Malone R.N. Urine: 1400 mL, with return of yellow-colored clear urine; odor is normal; attached to bedside drainage bag. --16:26 Joneserena Teresa Urine: 400 mL, with return of yellow-colored clear urine. --18:01 Liz Malone R.N. Urine, with return of 800 mL yellow-colored urine. --19:28 Stacy Monreal DISPOSITION / DISCHARGE Report was given to a nurse via a phone call. Report included patient's care, treatment, medications, reviewed medication reconcilliation, and condition (including any recent changes or anticipated changes). --17:37 Liz Malone R.N. Admitted. Patient's personal items; items were placed in belongings bag, given to the patient and transported with the patient. --17:38 Liz Malone R.N. 17:41 12/03/16. BP: 200/89. HR: 80. RR: 20. O2 saturation: 97%. Temp: 102 F. Additional comments: 4L NC. --17:43 Anali Young R.N. Departure time: 20:07. Transferred to [facility]. Summary of care provided to EMS via paper. Transported via ambulance with monitor, defibrillator and O2. Report was given to a nurse via a fax. Report included patient's care, treatment, medications, reviewed medication reconcilliation, and condition (including any recent changes or anticipated changes). No questions were asked. Report was acknowledged and care was transferred. --20:08 Stacy Monreal Condition at departure: stable. --20:08 Stacy Monreal 20:08 12/03/16. BP: 182/78. HR: 76. RR: 20. O2 saturation: 97%. Temp: 102.6 F. Pain level now: 0/10. --20:08 Stacy Monreal Patient's personal items include: shirt, pants and shoes; items were placed in belongings bag and transported with the patient. --20:09 Stcay Monreal Locked/Released at 12/03/2016 20:09 by Stacy Monreal
--- NOTE | 2016-12-03 08:03 | DIAGNOSTIC IMAGING REPORT ---
PROCEDURE: CT HEAD WITHOUT CONTRAST INDICATION: TRAUMA/INJURY TECHNIQUE: Noncontrast axial images with sagittal and coronal reformations. COMPARISON: None. FINDINGS: Mild motion artifacts. Sulci and ventricular system are normal. There is no acute CVA, hemorrhage, mass or midline shift. There is no significant change in the complete opacification of the left frontal, ethmoid, maxillary and sphenoid sinuses with expansion of the minor right frontal and right ethmoid sinus disease. Mastoids are clear. ethmoid sinuses. IMPRESSION: 1. No acute intracranial abnormality 2. No significant change in the severe left-sided sinusitis with expansion of the ethmoid air cell suggestive of fungal sinusitis versus mucocele 3. Findings discussed with Dr. Welsh at 08:03 a.m., [place] Standard Time
--- NOTE | 2016-12-03 08:09 | DIAGNOSTIC IMAGING REPORT ---
PROCEDURE: CT CERVICAL SPINE W/O CONTRAST CLINICAL INDICATION: TRAUMA/INJURY TECHNIQUE: Noncontrast axial images with sagittal and coronal reformations. COMPARISON: None. FINDINGS: Normal alignment without fracture. Mild reversal of the normal cervical lordosis. Severe degenerative changes most prominent at C5-6 and C6-7. There is mild bilateral C5-6 and C6-7 foraminal and spinal stenosis. Paraspinal soft tissues are unremarkable. Severe left maxillary, ethmoid and sphenoid sinus disease. IMPRESSION: 1. Severe degenerative changes with foraminal and spinal stenosis 2. Reversal of normal cervical lordosis suggestive of muscular spasm 3. Results discussed with Dr. Welsh All CT scans at this facility use dose modulation, iterative reconstruction, and/or weight-based dosing when appropriate to reduce radiation dose to as low as reasonably achievable.
--- NOTE | 2016-12-03 16:16 | Progress Note ---
Subjective General Admission History and Physical Examination Patient Name: Romain Beltran Admission Date: December 03, 2016 Primary Care Provider: Tayler SIDDIQI Attending Physician: Dallin Hearn M.D. Admitting Physician: Dallin Hearn M.D. Code Status: Full Code Room: 203-A SUBJECTIVE Historian: Patient Reliability: Good Chief Complaint: Sinusitis, headache History of Present Illness: The patient is a 51-year-old single white male with a significant past mental history of diabetes mellitus, hypertension, coronary disease status post CABG, who presented to [facility] emergency department on the day of admission secondary to complaints of sinusitis, facial pain. [facility] ER evaluation was consistent with severe left sided sinusitis unresponsive to inpatient/outpatient therapy. Secondary to the above, the patient was admitted by Dallin Hearn M.D. with consultation and management of sinusitis by ENT Dr. Heath Peterson The patient has a long-standing history of recurrent sinus infections. He has recently been treated over the past several weeks on an inpatient or outpatient basis with Unasyn, Augmentin, and Levaquin. He was recently hospitalized at [facility] from November 18 to November 22, 2016. During his hospitalization symptoms seem to improved with improvement in his white count from 16,300-11,100 on discharge. [facility] ER evaluation prior to the patient's hospitalization showed the patient to have CT scan showed marked worsening of left left-sided sinusitis. His right-sided sinusitis was much improved although his symptoms were located on the right. Secondary to the above the patient was admitted with a diagnosis of persistent severe sinusitis with leukocytosis for further evaluation and treatment. PAST MEDICAL HISTORY Illnesses: 1. Diabetes mellitus 2. Hypertension 3. Coronary disease status post CABG 5 4. Diabetic neuropathy 5. Obstructive sleep apnea 6. Chronic kidney disease 7. Reactive airway disease/asthma 8. Recurrent sinusitis Allergies: 1. Claritin 2. Metoprolol Medications: 1. Amitriptyline 10 mg by mouth daily at bedtime 2. Tramadol 50 mg by mouth 3 times a day when necessary pain 3. Albuterol HFA 2 inhalations 4 times a day when necessary shortness of breath 4. Aspirin 81 mg by mouth daily 5. Amlodipine 10 mg by mouth daily 6. Lipitor 80 mg by mouth daily 7. Augmentin 875 mg by mouth twice a day 8. Coreg dosage unknown one by mouth daily 9. Duloxetine 30 mg 2 by mouth daily 10. Flonase 2 sprays each nostril daily 11. Gabapentin 1200 mg by mouth 3 times a day 12. Humalog 20-30 minutes subcutaneous before meals 13. Lantus 6 units subcutaneous twice a day 14. Lisinopril 10 mg by mouth twice a day 15. Nitroglycerin 0.4 mg sublingual when necessary chest pain 16. Uloric 80 mg by mouth daily 17. Zantac 150 mg by mouth twice a day 18. Zyrtec 10 mg by mouth daily Surgery: 1. Bypass surgery 5 vessels Injuries: 1. Left foot fracture Hospitalizations: 1. For above surgery and medical problems. FAMILY HISTORY Parents: 1. Father, Murphy, , 60, unknown cause, 2. Mother, Grisel, , 60, ovarian CA Siblings: 1. Male, Murphy, living, 53, leg amputation 2. Female, Crystal, living, 56, healthy 3. Female, Ann Marie, , 47, CHF Children: 1. None Other significant family history: None SOCIAL HISTORY 1. Marital Status: Single 2. Muslim: Toribio 3. Education: High school, 12 grade. 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 Occupational health exposures: Dust, lead, loud noises, heavy lifting HABITS 1. Tobacco: None 2. Drugs: None 3. Alcohol: None 4. Caffeine: None HEALTH SUPERVISION Item/Test 1. Vision screen: No recent 2. Cholesterol Profile: 2016 3. PSA: No recent 4. LATOYA: No recent 5. FOBT: No recent 6. Blood Glucose: 2017 7. Colonoscopy: No previous 8. History and physical exam: 2015 9. Audiogram: No recent 10. Mammogram: Not applicable 11. Pap/pelvic exam: Not applicable IMMUNIZATIONS: 1. Pneumococcal: No previous 2. Influenza: 2017 3. Tetanus: Unknown ADVANCED DIRECTIVES: 1. Living well: No 2. POLST: No 3. Code Status: FULL CODE 4. 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 Donor card: No REVIEW OF SYSTEMS Remarkable for those things stated in the history of present illness and past medical history. Seventeen point review of system completed with the following notable findings: General: Pain, fever, weakness Eyes: Redness, visual loss, corrective lenses required for decreased visual acuity Ears: Ringing, earache Nose: Recurrent sinusitis, nasal discharge Throat, sore throat Respiratory: Shortness of breath Cardiovascular: Chest tightness, fast heart rate, hypertension Genitourinary: Frequency of urination Gastrointestinal: Heartburn Muscle skeletal: Joint stiffness, joint pain, backache muscle cramping Neurological: Balance problems headaches Endocrine: Diabetes, heat/cold intolerance
--- NOTE | 2016-12-03 16:16 | Progress Note ---
Subjective General Admission History and Physical Examination Patient Name: Romain Beltran Admission Date: December 03, 2016 Primary Care Provider: Tayler SIDDIQI Attending Physician: Dallin Hearn M.D. Admitting Physician: Dallin Hearn M.D. Code Status: Full Code Room: 203-A SUBJECTIVE Historian: Patient Reliability: Good Chief Complaint: Sinusitis, headache History of Present Illness: The patient is a 51-year-old single white male with a significant past mental history of diabetes mellitus, hypertension, coronary disease status post CABG, who presented to [facility] emergency department on the day of admission secondary to complaints of sinusitis, facial pain. [facility] ER evaluation was consistent with severe left sided sinusitis unresponsive to inpatient/outpatient therapy. Secondary to the above, the patient was admitted by Dallin Hearn M.D. with consultation and management of sinusitis by ENT Dr. Heath Peterson The patient has a long-standing history of recurrent sinus infections. He has recently been treated over the past several weeks on an inpatient or outpatient basis with Unasyn, Augmentin, and Levaquin. He was recently hospitalized at [facility] from November 18 to November 22, 2016. During his hospitalization symptoms seem to improved with improvement in his white count from 16,300-11,100 on discharge. [facility] ER evaluation prior to the patient's hospitalization showed the patient to have CT scan showed marked worsening of left left-sided sinusitis. His right-sided sinusitis was much improved although his symptoms were located on the right. Secondary to the above the patient was admitted with a diagnosis of persistent severe sinusitis with leukocytosis for further evaluation and treatment. PAST MEDICAL HISTORY Illnesses: 1. Diabetes mellitus 2. Hypertension 3. Coronary disease status post CABG 5 4. Diabetic neuropathy 5. Obstructive sleep apnea 6. Chronic kidney disease 7. Reactive airway disease/asthma 8. Recurrent sinusitis Allergies: 1. Claritin 2. Metoprolol Medications: 1. Amitriptyline 10 mg by mouth daily at bedtime 2. Tramadol 50 mg by mouth 3 times a day when necessary pain 3. Albuterol HFA 2 inhalations 4 times a day when necessary shortness of breath 4. Aspirin 81 mg by mouth daily 5. Amlodipine 10 mg by mouth daily 6. Lipitor 80 mg by mouth daily 7. Augmentin 875 mg by mouth twice a day 8. Coreg dosage unknown one by mouth daily 9. Duloxetine 30 mg 2 by mouth daily 10. Flonase 2 sprays each nostril daily 11. Gabapentin 1200 mg by mouth 3 times a day 12. Humalog 20-30 minutes subcutaneous before meals 13. Lantus 6 units subcutaneous twice a day 14. Lisinopril 10 mg by mouth twice a day 15. Nitroglycerin 0.4 mg sublingual when necessary chest pain 16. Uloric 80 mg by mouth daily 17. Zantac 150 mg by mouth twice a day 18. Zyrtec 10 mg by mouth daily Surgery: 1. Bypass surgery 5 vessels Injuries: 1. Left foot fracture Hospitalizations: 1. For above surgery and medical problems. FAMILY HISTORY Parents: 1. Father, Murphy, , 60, unknown cause, 2. Mother, Grisel, , 60, ovarian CA Siblings: 1. Male, Murphy, living, 53, leg amputation 2. Female, Crystal, living, 56, healthy 3. Female, Ann Marie, , 47, CHF Children: 1. None Other significant family history: None SOCIAL HISTORY 1. Marital Status: Single 2. Buddhism: Toribio 3. Education: High school, 12 grade. 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 Occupational health exposures: Dust, lead, loud noises, heavy lifting HABITS 1. Tobacco: None 2. Drugs: None 3. Alcohol: None 4. Caffeine: None HEALTH SUPERVISION Item/Test 1. Vision screen: No recent 2. Cholesterol Profile: 2016 3. PSA: No recent 4. LATOYA: No recent 5. FOBT: No recent 6. Blood Glucose: 2017 7. Colonoscopy: No previous 8. History and physical exam: 2015 9. Audiogram: No recent 10. Mammogram: Not applicable 11. Pap/pelvic exam: Not applicable IMMUNIZATIONS: 1. Pneumococcal: No previous 2. Influenza: 2017 3. Tetanus: Unknown ADVANCED DIRECTIVES: 1. Living well: No 2. POLST: No 3. Code Status: FULL CODE 4. 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 Donor card: No REVIEW OF SYSTEMS Remarkable for those things stated in the history of present illness and past medical history. Seventeen point review of system completed with the following notable findings: General: Pain, fever, weakness Eyes: Redness, visual loss, corrective lenses required for decreased visual acuity Ears: Ringing, earache Nose: Recurrent sinusitis, nasal discharge Throat, sore throat Respiratory: Shortness of breath Cardiovascular: Chest tightness, fast heart rate, hypertension Genitourinary: Frequency of urination Gastrointestinal: Heartburn Muscle skeletal: Joint stiffness, joint pain, backache muscle cramping Neurological: Balance problems headaches Endocrine: Diabetes, heat/cold intolerance
--- NOTE | 2016-12-03 18:15 | DIAGNOSTIC IMAGING REPORT ---
PROCEDURE: XR FLUOROSCOPY UP TO 1 HOUR INDICATION: SPINAL TAP TECHNIQUE: C-arm fluoroscopy provided for Dr. Mensah. Fluoroscopy time 1 minute 27 seconds. Radiation dose 123.1 mGy. COMPARISON: None. FINDINGS: Lateral view demonstrates a needle posterior to the lumbar spine, indeterminate level. IMPRESSION: 1. C-arm fluoroscopy provided for lumbar puncture performed by Dr. Mensah
--- NOTE | 2016-12-03 22:51 | ED MAR SUMMARY ---
..... Medication Administration Record [facility] [address] [place] [address] Patient: SUDHA BRIGGS Visit ID: [id number] 51y, M Weight: 167.8 kg Height/Length: 71 in BMI: 51.6 ALLERGIES: Claritin, Metoprolol Succinate Given 03:23 12/03/2016 Stacy Monreal Medication Administered: BENADRYL [IVP] (DIPHENHYDRAMINE HCL), Dose: 25 mg IVP over 2 minute(s), Site: #1 right forearm. Medication Ordered: Benadryl IV 25 mg (NOW). Given 03:24 12/03/2016 Stacy Monreal Medication Administered: TORADOL [IVP], Dose: 30 mg IVP over 2 minute(s), Site: #1 right forearm. Medication Ordered: Toradol IV 30 mg (NOW). Start 03:12/03/2016 Stacy Monreal, Stop 04:12/03/2016 Kortney Guevara R.N. Medication Administered: IV NS (SALINE), Dose: IV Fluids over 1 hour(s), Rate: 999 mL/hr, Dispensed: 1000 mL bag, Site: #1 right forearm. Medication Ordered: IV NS : initial bolus 1000 mL (1000 mL/hr), then none - for X1 (NOW). Given 03:12/03/2016 Stacy Monreal Medication Administered: PHENERGAN [IVP] (PROMETHAZINE HCL), Dose: 25 mg IVP over 5 minute(s), Site: #1 right forearm. Medication Ordered: Phenergan IV 25 mg (HIGH ALERT MEDICATION, NOW). Given 03:29 12/03/2016 Stacy Monreal Medication Administered: DECADRON [IVP], Dose: 10 mg IVP over 2 minute(s), Site: #1 right forearm. Medication Ordered: Decadron IV 10 mg (NOW). Given 06:35 12/03/2016 Stacy Monreal Medication Administered: ZOFRAN [IVP] (ONDANSETRON HCL), Dose: 8 mg IVP over 1 minute(s), Site: #1 right forearm. Medication Ordered: Zofran IV 8 mg (NOW). Given 06:52 12/03/2016 Kortney Guevara RFallonNFallon Medication Administered: PHENERGAN [IVP] (PROMETHAZINE HCL), Dose: 25 mg IVP over 5 minute(s), Site: #1 right forearm. Medication Ordered: Phenergan IV 25 mg (HIGH ALERT MEDICATION, NOW). Start 07:36 12/03/2016 Brenda Fischer R.N., Stop 08:40 12/03/2016 Liz Malone R.N. Medication Administered: IV NS (SALINE), Dose: IV Fluids over 1 hour(s), Rate: 1000 mL/hr, Dispensed: 1000 mL bag, Site: #1 right forearm. Medication Ordered: IV NS : initial bolus 1000 mL (1000 mL/hr), then none - for X1 (NOW). Start 10:45 12/03/2016 Liz Malone RChaitanya, Stop 14:42 12/03/2016 Brenda Fischer RChaitanya Medication Administered: IV NS (SALINE), Dose: IV Fluids over 4 hour(s), Rate: 250 mL/hr, Dispensed: 1000 mL bag, Site: #2 left upper arm. Medication Ordered: IV NS : initial bolus none -, then 250 mL/hr for 4h (NOW); Urgent. Start 17:40 12/03/2016 Anali Young RChaitanya, Stop 19:09 12/03/2016 Yudith Lockwood RFallonNFallon Medication Administered: LEVAQUIN [IVPB] (LEVOFLOXACIN), Dose: 750 mg IVPB over 90 minute(s), Rate: 100 mL/hr, Dispensed: 150 mL bag, Site: #1 right forearm. Medication Ordered: Levaquin IV 750 mg/150 mL (NOW). Given 19:17 12/03/2016 Jocelin RChaitanya Medication Administered: LORAZEPAM [IVP] (LORAZEPAM), Dose: 0.5 mg IVP over 2 minute(s), Site: #1 right forearm. Medication Ordered: LORazepam IV 0.5 mg + 0.5 mg iv (NOW). Start 19:26 12/03/2016 Stacy Monreal Medication Administered: UNASYN [IVPB] (AMPICILLIN-SULBACTAM SODIUM), Dose: 1.5 gm IVPB over 20 minute(s), Rate: 162 mL/hr, Site: #3 left Midline. Medication Ordered: Unasyn IV 1.5 gm/100mL (NOW). Given 19:43 12/03/2016 Stacy Monreal Medication Administered: TYLENOL [TN], Dose: 1000 mg TN. Medication Ordered: - (TYLENOL SUPPOSITORY 1 GM).
--- NOTE | 2016-12-03 22:51 | ED MAR SUMMARY ---
..... Medication Administration Record [facility] [address] [place] [address] Patient: SUDHA BRIGGS Visit ID: [id number] 51y, M Weight: 167.8 kg Height/Length: 71 in BMI: 51.6 ALLERGIES: Claritin, Metoprolol Succinate Given 03:23 12/03/2016 Stacy Monreal Medication Administered: BENADRYL [IVP] (DIPHENHYDRAMINE HCL), Dose: 25 mg IVP over 2 minute(s), Site: #1 right forearm. Medication Ordered: Benadryl IV 25 mg (NOW). Given 03:24 12/03/2016 Stacy Monreal Medication Administered: TORADOL [IVP], Dose: 30 mg IVP over 2 minute(s), Site: #1 right forearm. Medication Ordered: Toradol IV 30 mg (NOW). Start 03:12/03/2016 Stacy Monreal, Stop 04:12/03/2016 Kortney Guevara R.N. Medication Administered: IV NS (SALINE), Dose: IV Fluids over 1 hour(s), Rate: 999 mL/hr, Dispensed: 1000 mL bag, Site: #1 right forearm. Medication Ordered: IV NS : initial bolus 1000 mL (1000 mL/hr), then none - for X1 (NOW). Given 03:12/03/2016 Stacy Monreal Medication Administered: PHENERGAN [IVP] (PROMETHAZINE HCL), Dose: 25 mg IVP over 5 minute(s), Site: #1 right forearm. Medication Ordered: Phenergan IV 25 mg (HIGH ALERT MEDICATION, NOW). Given 03:29 12/03/2016 Stacy Monreal Medication Administered: DECADRON [IVP], Dose: 10 mg IVP over 2 minute(s), Site: #1 right forearm. Medication Ordered: Decadron IV 10 mg (NOW). Given 06:35 12/03/2016 Stacy Monreal Medication Administered: ZOFRAN [IVP] (ONDANSETRON HCL), Dose: 8 mg IVP over 1 minute(s), Site: #1 right forearm. Medication Ordered: Zofran IV 8 mg (NOW). Given 06:52 12/03/2016 Kortney Guevara RFallonNFallon Medication Administered: PHENERGAN [IVP] (PROMETHAZINE HCL), Dose: 25 mg IVP over 5 minute(s), Site: #1 right forearm. Medication Ordered: Phenergan IV 25 mg (HIGH ALERT MEDICATION, NOW). Start 07:36 12/03/2016 Brenda Fischer R.N., Stop 08:40 12/03/2016 Liz Malone R.N. Medication Administered: IV NS (SALINE), Dose: IV Fluids over 1 hour(s), Rate: 1000 mL/hr, Dispensed: 1000 mL bag, Site: #1 right forearm. Medication Ordered: IV NS : initial bolus 1000 mL (1000 mL/hr), then none - for X1 (NOW). Start 10:45 12/03/2016 Liz Malone RChaitanya, Stop 14:42 12/03/2016 Brenda Fischer RChaitanya Medication Administered: IV NS (SALINE), Dose: IV Fluids over 4 hour(s), Rate: 250 mL/hr, Dispensed: 1000 mL bag, Site: #2 left upper arm. Medication Ordered: IV NS : initial bolus none -, then 250 mL/hr for 4h (NOW); Urgent. Start 17:40 12/03/2016 Anali Young RChaitanya, Stop 19:09 12/03/2016 Yudith Lockwood RFallonNFallon Medication Administered: LEVAQUIN [IVPB] (LEVOFLOXACIN), Dose: 750 mg IVPB over 90 minute(s), Rate: 100 mL/hr, Dispensed: 150 mL bag, Site: #1 right forearm. Medication Ordered: Levaquin IV 750 mg/150 mL (NOW). Given 19:17 12/03/2016 Jocelin RChaitanya Medication Administered: LORAZEPAM [IVP] (LORAZEPAM), Dose: 0.5 mg IVP over 2 minute(s), Site: #1 right forearm. Medication Ordered: LORazepam IV 0.5 mg + 0.5 mg iv (NOW). Start 19:26 12/03/2016 Stacy Morneal Medication Administered: UNASYN [IVPB] (AMPICILLIN-SULBACTAM SODIUM), Dose: 1.5 gm IVPB over 20 minute(s), Rate: 162 mL/hr, Site: #3 left Midline. Medication Ordered: Unasyn IV 1.5 gm/100mL (NOW). Given 19:43 12/03/2016 Stacy Monreal Medication Administered: TYLENOL [KY], Dose: 1000 mg KY. Medication Ordered: - (TYLENOL SUPPOSITORY 1 GM).
--- NOTE | 2016-12-03 22:51 | ED MED RECONCILIATION SUMMARY ---
Patient: SUDHA BRIGGS Medication Reconciliation Report [facility] VisitID: [id number] [address] [place] [address] 51y, M Registration Date/Time: 12/03/2016 Weight: 167.8 kg Height/Length: 71 in. BMI: 51.6 ALLERGIES: Claritin, Metoprolol Succinate The patient's Home Medications are listed below: CONTINUE TAKING THE FOLLOWING MEDICATIONS: Aspirin Low Dose Oral (81 mg) 1 tablet, daily Atorvastatin Calcium Oral (80 mg) 1 tablet, daily Augmentin Oral (875-125 mg) 1 tablet, 2x a day Benzonatate Oral (200 mg) 1 capsule, 3x a day Carvedilol Phosphate ER Oral Cefdinir Oral (300 mg) 1 capsule, 2x a day DULoxetine HCl Oral (30 mg) 2 capsules Flonase Nasal (50 mcg/act) 2 sprays, daily Gabapentin Oral 1200 mg, 3x a day HumaLOG Subcutaneous (100 unit/mL) 20-30 units , before meals Lantus Subcutaneous (100 unit/mL) 60 units, 2x a day Lisinopril Oral 10 mg, 2x a day Nitroglycerin Sublingual (0.4 mg) [place] 3 Oral ProAir HFA Inhalation (108 (90 Base) mcg/act) Ranitidine HCl Oral 150 mg, 2x a day Tramadol HCL Oral, 3x a day Uloric Oral (80 mg), daily Vitamin B-12 Oral ZyrTEC Allergy Oral (10 mg) 1 tablet, daily CONTINUE TAKING THE FOLLOWING MEDICATIONS UNTIL YOU CHECK WITH YOUR PHYSICIAN: Albuterol Sulfate HFA Inhalation (108 (90 Base) mcg/act) 2 puffs, 4x a day Amitriptyline HCl Oral (10 mg), at bedtime AmLODIPine Besylate Oral (10 mg), daily The source(s) of the original Home Medication information: Not obtained. The following Medications were given to the patient in the Emergency Department: IV NS IV Fluids bolus 0, then 999 mL/hr, administered: 12/03/2016 3:28:00 AM PHENERGAN [IVP] IVP 25 mg, administered: 12/03/2016 3:28:00 AM Benadryl [IVP] IVP 25 mg, administered: 12/03/2016 3:23:00 AM Toradol [IVP] IVP 30 mg, administered: 12/03/2016 3:24:00 AM Decadron [IVP] IVP 10 mg, administered: 12/03/2016 3:29:00 AM PHENERGAN [IVP] IVP 25 mg, administered: 12/03/2016 6:52:00 AM Zofran [IVP] IVP 8 mg, administered: 12/03/2016 6:35:00 AM IV NS IV Fluids bolus 0, then 1000 mL/hr, administered: 12/03/2016 7:36:00 AM IV NS IV Fluids bolus 0, then 250 mL/hr, administered: 12/03/2016 10:45:00 AM Levaquin [IVPB] IVPB bolus 0, then 750 mg 100 mL/hr, administered: 12/03/2016 5:40:00 PM Lorazepam [IVP] IVP 0.5 mg, administered: 12/03/2016 7:17:00 PM Unasyn [IVPB] IVPB bolus 0, then 1.5 gm 162 mL/hr, administered: 12/03/2016 7:26:00 PM Tylenol [CT] CT 1000 mg, administered: 12/03/2016 7:43:00 PM The following Medications were prescribed to the patient: None.
--- NOTE | 2016-12-03 22:51 | ED MED RECONCILIATION SUMMARY ---
Patient: SUDHA BRIGGS Medication Reconciliation Report [facility] VisitID: [id number] [address] [place] [address] 51y, M Registration Date/Time: 12/03/2016 Weight: 167.8 kg Height/Length: 71 in. BMI: 51.6 ALLERGIES: Claritin, Metoprolol Succinate The patient's Home Medications are listed below: CONTINUE TAKING THE FOLLOWING MEDICATIONS: Aspirin Low Dose Oral (81 mg) 1 tablet, daily Atorvastatin Calcium Oral (80 mg) 1 tablet, daily Augmentin Oral (875-125 mg) 1 tablet, 2x a day Benzonatate Oral (200 mg) 1 capsule, 3x a day Carvedilol Phosphate ER Oral Cefdinir Oral (300 mg) 1 capsule, 2x a day DULoxetine HCl Oral (30 mg) 2 capsules Flonase Nasal (50 mcg/act) 2 sprays, daily Gabapentin Oral 1200 mg, 3x a day HumaLOG Subcutaneous (100 unit/mL) 20-30 units , before meals Lantus Subcutaneous (100 unit/mL) 60 units, 2x a day Lisinopril Oral 10 mg, 2x a day Nitroglycerin Sublingual (0.4 mg) [place] 3 Oral ProAir HFA Inhalation (108 (90 Base) mcg/act) Ranitidine HCl Oral 150 mg, 2x a day Tramadol HCL Oral, 3x a day Uloric Oral (80 mg), daily Vitamin B-12 Oral ZyrTEC Allergy Oral (10 mg) 1 tablet, daily CONTINUE TAKING THE FOLLOWING MEDICATIONS UNTIL YOU CHECK WITH YOUR PHYSICIAN: Albuterol Sulfate HFA Inhalation (108 (90 Base) mcg/act) 2 puffs, 4x a day Amitriptyline HCl Oral (10 mg), at bedtime AmLODIPine Besylate Oral (10 mg), daily The source(s) of the original Home Medication information: Not obtained. The following Medications were given to the patient in the Emergency Department: IV NS IV Fluids bolus 0, then 999 mL/hr, administered: 12/03/2016 3:28:00 AM PHENERGAN [IVP] IVP 25 mg, administered: 12/03/2016 3:28:00 AM Benadryl [IVP] IVP 25 mg, administered: 12/03/2016 3:23:00 AM Toradol [IVP] IVP 30 mg, administered: 12/03/2016 3:24:00 AM Decadron [IVP] IVP 10 mg, administered: 12/03/2016 3:29:00 AM PHENERGAN [IVP] IVP 25 mg, administered: 12/03/2016 6:52:00 AM Zofran [IVP] IVP 8 mg, administered: 12/03/2016 6:35:00 AM IV NS IV Fluids bolus 0, then 1000 mL/hr, administered: 12/03/2016 7:36:00 AM IV NS IV Fluids bolus 0, then 250 mL/hr, administered: 12/03/2016 10:45:00 AM Levaquin [IVPB] IVPB bolus 0, then 750 mg 100 mL/hr, administered: 12/03/2016 5:40:00 PM Lorazepam [IVP] IVP 0.5 mg, administered: 12/03/2016 7:17:00 PM Unasyn [IVPB] IVPB bolus 0, then 1.5 gm 162 mL/hr, administered: 12/03/2016 7:26:00 PM Tylenol [MA] MA 1000 mg, administered: 12/03/2016 7:43:00 PM The following Medications were prescribed to the patient: None.
--- NOTE | 2016-12-03 22:51 | ED DISCHARGE INSTRUCTIONS ---
Patient: SUDHA BRIGGS General Instructions [facility] VisitID: [id number] [address] [place] [address] 51y, M Registration Date/Time: 12/03/2016 12/03/2016 03:02 BP: 201/110. HR: 97. RR: 20. O2 saturation: 96%. Temp: 98.2 F. Pain level now: 10/10. Acute headache (frontal). Blood pressure normal. Oxygen saturation normal. Uncontrolled essential hypertension. ALTERED MENTAL STATUS HEADACHE Left BRADFORD SINUSITIS with probable bone erosion LUE MOVEMENT - POSSIBLE FOCAL SEIZURE. CAD - CABG DM - WITH RENAL INSUFFICIENCY. INSTRUCTIONS Your Current Medications: CONTINUE TAKING THE FOLLOWING MEDICATIONS: Aspirin Low Dose Oral : Tablet Chewable 81 mg, 1 tablet daily. Atorvastatin Calcium Oral : Tablet 80 mg, 1 tablet daily. Augmentin Oral : Tablet 875-125 mg, 1 tablet 2x a day. Benzonatate Oral : Capsule 200 mg, 1 capsule 3x a day, prn. Carvedilol Phosphate ER Oral. Cefdinir Oral : Capsule 300 mg, 1 capsule 2x a day. DULoxetine HCl Oral : Capsule Delayed Release Particles 30 mg, 2 capsules. Flonase Nasal : Suspension 50 mcg/act, 2 sprays daily. Gabapentin Oral : 1200 mg 3x a day. HumaLOG Subcutaneous : Solution 100 unit/mL, 20-30 units before meals. Lantus Subcutaneous : Solution 100 unit/mL, 60 units 2x a day. Lisinopril Oral : 10 mg 2x a day. Nitroglycerin Sublingual : Tablet Sublingual 0.4 mg, prn. [place] 3 Oral. ProAir HFA Inhalation : Aerosol Solution 108 (90 Base) mcg/act, prn. Ranitidine HCl Oral : 150 mg 2x a day. Tramadol HCL Oral : 3x a day. Uloric Oral : Tablet 80 mg, daily. Vitamin B-12 Oral. ZyrTEC Allergy Oral : Tablet 10 mg, 1 tablet daily. CONTINUE TAKING THE FOLLOWING MEDICATIONS UNTIL YOU CHECK WITH YOUR PHYSICIAN: Albuterol Sulfate HFA Inhalation : Aerosol Solution 108 (90 Base) mcg/act, 2 puffs 4x a day, prn. Amitriptyline HCl Oral : Tablet 10 mg, at bedtime. AmLODIPine Besylate Oral : Tablet 10 mg, daily. ADDITIONAL INFORMATION Hypertension, Out Of Control (Established) Your blood pressure was unusually high today. This can occur as a result of missing doses of your blood pressure medicine. Some asthma inhalers, decongestants, diet pills, and street drugs such as cocaine and amphetamine can worsen hypertension. An increase in body weight, increase in salt intake, smoking, and caffeine are other causes. Emotional upset or acute pain can cause a sudden rapid rise in blood pressure which may return to normal after a period of rest. A normal blood pressure is less than 140/90. The first (top) number is the systolic pressure. The second (bottom) number is the diastolic pressure. Hypertension exists when either the top number is 140 or higher, OR the bottom number is 90 or higher on repeated measurements. Home Care: All patients with high blood pressure should do the following to lower their pressure. If you are on blood pressure medicines, then these methods may reduce or eliminate your need for medicines in the future. Begin a weight-loss program if you are overweight. Reduce your salt intake. Avoid high-salt foods (olives, pickles, smoked meats, salted potato chips, etc.). Do not add salt to your food at the table. Use only small amounts of salt when cooking. Begin an exercise program. Discuss with your doctor what type of exercise program would be best for you. It doesnt have to be difficult. Even brisk walking for 20 minutes3 times a week is a good form of exercise. Avoid medicines which contain heart stimulants. This includes many cold and sinus decongestant pills and sprays as well as diet pills. Check the warnings about hypertension on the label. Stimulants such as amphetamine or cocaine could be lethal for someone with hypertension. Never take these. Limit your caffeine intake or switch to decaf. Stop smoking. If you are a long-time smoker, this can be hard. Enroll in a stop-smoking program to improve your chance of success. Talk to your physician about ways to improve your chance of success. Learning how to handle stress better is an important part of any program to lower blood pressure. Learn about relaxation methods such as meditation, yoga, or biofeedback. If medicines were prescribed, take them exactly as directed. Missing doses may cause your blood pressure to get out of control. Consider buying an automatic blood pressure machine (available at many pharmacies). Use this to monitor your blood pressure and report to your doctor. Follow Up: Regular visits to your own doctor for blood pressure checks and medicine adjustment is an important part of your care. Make a follow-up appointment as directed by our staff. Get Prompt Medical Attention if any of the following occur: Chest, arm, shoulder, neck, or upper back pain Shortness of breath Severe headache Throbbing or rushing sound in the ears Nosebleed Extreme drowsiness, confusion, or fainting Dizziness or vertigo (dizziness with spinning sensation) Weakness of an arm or leg or one side of the face Difficulty with speech or vision Headache [Unspecified] The cause of your headache today is not clear, but it does not appear to be the sign of any serious illness. Under stress, some people tense the muscles of their shoulder, neck and scalp without knowing it. If this condition lasts long enough, a TENSION HEADACHE can occur. A MIGRAINE HEADACHE is caused by changes in blood flow to the brain. A migraine attack may be triggered by emotional stress, hormone changes during the menstrual cycle, oral contraceptives, alcohol use, certain foods containing tyramine, eye strain, weather changes, missing meals, lack of sleep or oversleeping. Other causes of headache include a viral illness with high fever, head injury with concussion, sinus, ear or throat infection, dental pain and TMJ (jaw joint) pain. More serious but less common causes of headache include stroke, brain hemorrhage, brain tumor, meningitis and encephalitis. Home Care: If you were given pain medicine for this headache, do not drive yourself home. Arrange for a ride, instead. When you get home, try to sleep. You should feel much better when you wake up. Apply heat to the back of your neck to relieve neck muscle spasm. Migraine headaches may respond best to an ice pack on the forehead or at the base of the skull. If you are having nausea or vomiting, follow a light diet until your headache is relieved. If you have a migraine type headache, use sunglasses when in the daylight or around bright indoor lighting until symptoms improve. Bright glaring light can worsen this kind of headache. Follow Up with your doctor if the headache is not better within the next 24 hours. If you have frequent headaches you should discuss a treatment plan with your primary care doctor. By being aware of the earliest signs of headache, and starting treatment right away, you may be able to stop the pain yourself. Get Prompt Medical Attention if any of the following occur: Worsening of your head pain or no improvement within 24 hours Repeated vomiting (unable to keep liquids down) Fever of 100.4F (38C) or higher, or as directed by your healthcare provider Stiff neck Extreme drowsiness, confusion or fainting Dizziness, vertigo (dizziness with spinning sensation) Weakness of an arm or leg or one side of the face Difficulty with speech or vision You have been given the following additional information: Hypertension, Established, Out Of Control Headache, Unspecified (Electronically signed by Gus Abdalla MD 12/03/2016 22:50)
--- NOTE | 2016-12-04 01:43 | PROCEDURE NOTE ---
DATE OF PROCEDURE: 12/03/2016 ATTENDING PHYSICIAN/PROVIDER: Geo Mensah MD PREPROCEDURE DIAGNOSIS: 1. Migraine headache POSTPROCEDURE DIAGNOSIS: 1. Migraine headache PROCEDURE PERFORMED: 1. Attempted spinal tap, which failed. INDICATIONS: The patient was referred by Dr. Abdalla for a spinal tap. He had previously attempted to perform a spinal tap unsuccessfully in the emergency department. The patient had presented with a headache, nausea and vomiting at 3 a.m. in the morning. MEDICAL/SURGICAL HISTORY: Past medical history with morbid obesity, coronary artery disease with a coronary artery bypass graft, diabetes with renal insufficiency, sinusitis. MEDICATIONS: 1. Tramadol 1 tablet 3 times a day. 2. Uloric oral 80 mg once daily. 3. Vitamin B12 orally once daily. 4. Zyrtec 10 mg 1 tablet daily. 5. Albuterol inhalation 2 puffs 4 times daily. 6. Amitriptyline 10 mg at bedtime. 7. Amlodipine 10 mg daily. 8. Aspirin 81 mg daily. 9. Atorvastatin calcium 80 mg daily. 10. Augmentin 1 tablet twice daily. 11. Benzonatate 1 capsule 3 times daily. 12. Carvedilol ER once daily. 13. Cefdinir 300 mg twice daily. 14. Duloxetine 30 mg 2 capsules daily. 15. Flonase 50 mg 2 sprays daily. 16. Humalog subcutaneous 30 units subcutaneously before meals. 17. Lantus subcutaneous 60 units twice daily. 18. Lisinopril 10 mg 2 tablets daily. 19. Nitroglycerin sublingual as needed. 20. [place]-3 orally once daily. 21. ProAir inhalation as needed. 22. Ranitidine 150 mg 2 times daily. ALLERGIES: 1. CLARITIN. 2. METOPROLOL. SOCIAL HISTORY: Does not smoke, does not drink alcohol. PHYSICAL EXAMINATION: GENERAL: The patient is somnolent, but corporate. Appearance sleepy and cooperative if aroused sufficiently. VITAL SIGNS: Blood pressure 201/110, heart rate 97, respirations 20, room air oxygen saturation 96%, and temperature 98.2. NEUROLOGIC: No obvious neurological deficit. Cranial nerves grossly intact. HEAD/NECK: Normocephalic and atraumatic. Neck: Full range of motion. CARDIOVASCULAR: Heart sounds normal. Regular rhythm. RESPIRATORY: Chest clear. LAB/IMAGING: EKG no acute ischemia, sinus rhythm. CT spine, normal. IMPRESSION/PLAN: 1. Intractable headache, need to rule out meningitis. It was not possible to get significant corporation in order to obtain consent for the spinal tap. It was decided, one should perform the spinal tap without consent. DESCRIPTION OF PROCEDURE: The patient was positioned with the right side down and the skin over the lumbar region was prepped with Betadine, 1% lidocaine was infiltrated over the L3-L4 interspace and an 18-gauge spinal needle was placed on the spinal process and then walked into the L3-L4 space. A 25-gauge 5 inch needle was then advanced slowly into the epidural space, but no CSF was found. The needles were then removed and after a second and third attempt failed, it was decided to move the patient to the CDU where this could be done under C-arm. The patient was then positioned on the x-ray table with the left side down and the back again was prepped with Betadine and draped in sterile fashion. Lidocaine 1% was infiltrated over the L3-L4 interspace and this time using a 5 inch 22-gauge spinal needle, the needle was advanced through the skin wheal under C-arm guidance; however, it was not found possible to pass the lamina and placement was checked both with lateral and PA view. PA view was not sufficient to actually determine positioning of the needle, and after 3 attempts, it was decided to abandon the procedure. The needles were removed. The patient was taken back to the emergency department in good condition.
--- NOTE | 2016-12-05 19:30 | CONSULTATION REPORT ---
DATE OF CONSULTATION: 12/03/2016 HISTORY OF PRESENT ILLNESS: The patient is a 51-year-old gentleman who apparently has a long history of sinus problems. It sounds like he has had fairly constant infections since August. He has been on and off multiple different antibiotics and nasal steroids. He was admitted to the hospital earlier this month, treated with intravenous antibiotics and then discharged on oral Levaquin. On the day of consultation he re-presented to the emergency department with visual disturbance and headaches. While in the emergency department, he apparently fell out of his bed and was found on the floor. For this reason, a CT of the brain was done. He had had a sinus or brain CT in August, another one with his last hospitalization. Throughout the course of his time in the emergency department, he was noted to have deteriorated mental status, low-grade fevers. He had a leukocytosis of 26,000. I was consulted regarding his sinus problems and their possible contribution to his current problems. MEDICAL/SURGICAL HISTORY: He has a complicated medical history. He has significant coronary artery disease, has had a CABG. He has renal insufficiency. MEDICATIONS: Include: 1. Albuterol. 2. Amitriptyline. 3. Amlodipine. 4. Aspirin. 5. Atorvastatin. 6. Carvedilol. 7. Duloxetine. 8. Gabapentin. 9. Humulin. 10. Lantus insulin. 11. Lisinopril. 12. Nitroglycerin as needed. 13. ProAir inhaler. 14. Ranitidine. 15. Tramadol. 16. Uloric. 17. Zyrtec. PHYSICAL EXAMINATION: GENERAL: On my examination of the patient in the emergency department, he is moderately obtunded in a hospital bed. I can get him to respond to his name and to simple commands. He is morbidly obese. He has an obvious midline sternotomy scar. HEENT: His facial skin is unremarkable. Ear canals and tympanic membranes are normal. Nasal examination has marked purulence on the left side, none on the right. Oral examination with significantly redundant oropharyngeal soft tissue, posterior lying tongue. NECK: Benign. LAB/IMAGING: In the emergency department, the serial CT scans are reviewed. The CT from August shows pansinus disease bilaterally. The scan from earlier this month shows primarily left-sided pansinusitis with an expansile area in the mid ethmoids pushing into the orbit. His scan today shows again the pansinusitis, frontal total ethmoid, maxillary, and sphenoid on the left side. There appears to be bony erosion of the superior portion of the left sphenoid and possibly a dehiscence in the bone posteriorly on the left. Because of the patient's elevated BUN and creatinine he was unable to have a contrast-enhanced scan and due to his morbid obesity he could not have an MRI scan. IMPRESSION: 1. Chronic with acute thomas left-sided sinusitis with concern regarding the intactness of the sphenoid bony bean and with possibility of central nervous system involvement. PLAN: Case was discussed with Dr. Trell Queen at the [facility] and ultimately we did arrange for patient to be transferred to a facility that has the ability to perform sinus surgery with the image to localize their technology. Also, availability of neurosurgical consultation. Approximately an [id number]-[id number]-half was spent by myself in the emergency department and then a significant additional time in 3-way conference calls with Dr. Queen and the triage nurse at [facility]. Ultimately, the patient was able to be transferred. Preprocedure Diagnosis: Chronic sinusitis, now with acute exacerbation and deteriorating mental status. Postprocedure Diagnosis: Chronic sinusitis, now with acute exacerbation and deteriorating mental status. PROCEDURE NOTE: A 30 degree rigid endoscope is selected. After decongesting the nose with Afrin, the scope was passed on the right side. The airway is patent. No masses, polyps or purulence are seen. On the left the mucosa is significantly inflamed and edematous. There is no mucopus coming from the middle meatus. Again, no masses or polyps are noted. The patient tolerated the procedure well.
== END 2016-12-03 20:10 | disposition short-term general hospital (02) ==
LOC: ED SRH 02:53 → TRANS SRH 13:17 → ED SRH 13:17
DX: J01.40 Acute pansinusitis, unspecified (principal); R51 Headache; R41.82 Altered mental status, unspecified; R25.1 Tremor, unspecified; I10 Essential (primary) hypertension; E11.9 Type 2 diabetes mellitus without complications; N28.9 Disorder of kidney and ureter, unspecified; I25.10 Atherosclerotic heart disease of native coronary artery without angina pectoris; Z95.1 Presence of aortocoronary bypass graft; Z91.81 History of falling; Y92.238 Other place in hospital as the place of occurrence of the external cause; K21.9 Gastro-esophageal reflux disease without esophagitis; Z79.899 Other long term (current) drug therapy; Z79.82 Long term (current) use of aspirin